=== PATIENT | male | born 1960 | race Caucasian/White ===

== ENCOUNTER 2017-08-22 06:27 | Inpatient (IN) | payer BC ==
[2017-08-18 08:19] LABS: BASOPHILS # (AUTO) 0.1 (0.0-0.1); BASOPHILS % 0.5 % (0.0-1.0); EOSINOPHILS # (AUTO) 0.1 (0.0-0.4); EOSINOPHILS % 0.7 % (0.0-6.0); HEMATOCRIT 42.8 % (38.2-49.6); HEMOGLOBIN 13.8 g/dL (14.0-18.0); LYMPHOCYTES # (AUTO) 1.1 (1.0-3.2); LYMPHOCYTES % 11.8 % (18.0-39.1); MEAN CORPUSCULAR HEMOGLOBIN 28.1 pg (28-32); MEAN CORPUSCULAR HGB CONC 32.2 g/dL (31-35); MEAN CORPUSCULAR VOLUME 87.2 fL (81-99); MONOCYTES % 10.3 % (4.4-11.3); NEUTROPHILS # (AUTO) 7.3 (2.1-6.9); NEUTROPHILS % 76.2 % (38.7-80.0); PLATELET COUNT 261 x10e3/uL (140-360); RED BLOOD COUNT 4.91 x10e6/uL (4.3-5.7); RED CELL DISTRIBUTION WIDTH 13.8 % (11.7-14.4)
[2017-08-18 08:42] LABS: ANION GAP 14.4 mmol/L (8-16); BLOOD UREA NITROGEN 11 mg/dL (7-26); BUN/CREATININE RATIO 12 (6-25); CALCIUM 9.9 mg/dL (8.4-10.2); CARBON DIOXIDE 24 mmol/L (22-29); CHLORIDE 104 mmol/L (98-107); EST GLOMERULAR FILTRATION RATE > 60 ML/MIN (60-); GLUCOSE 108 mg/dL (74-118); POTASSIUM 4.4 mmol/L (3.5-5.1); SODIUM 138 mmol/L (136-145)
[~2017-08-22] VITALS: Ht 193 cm; Wt 161.5 kg
[~2017-08-22 06:27] MED LIST: AUGMENTIN 875-1 EACH PO; BACTRIM DS TAB1 EACH PO; FLOMAX0.4 MG PO; LORAZEPAM1 MG PO; LOSARTAN POTAS100 MG PO; LOSARTAN-HCTZ1 EAC2 PO; NORCO 10-325 T1 EACH PO; PROZAC40 MG PO
[2017-08-22] MEDS ORDERED: CEFOXITIN 1GM/ DEXTROSE 50ML 100 ML IV ONE (06:50)
[2017-08-22] MEDS ORDERED: DIPHENHYDRAMINE HCL INJ 50 MG/ML VIAL IM PRN (13:15)
[2017-08-22] MEDS ORDERED: ACETAMINOPHEN 1000 MG/100 ML IV PRN (13:15)
[2017-08-22] MEDS ORDERED: HYDROMORPHONE 0.2MG/ML-SOD CHL 30ML PCA SYRINGE IV PRN (13:15)
[2017-08-22] MEDS ORDERED: NALOXONE HCL INJ 0.4 MG/ML AMP IV PRN (13:15)
[2017-08-22] MEDS ORDERED: ALBUTEROL SULF 0.083% NEB SOLN 3 ML NEB ONE (13:26)
[2017-08-22] MEDS ORDERED: ONDANSETRON HCL INJ 2 MG/ML VIAL ONE ×2 (13:49→18:10)
[2017-08-22] MEDS ORDERED: HYDROMORPHONE 2MG/ML INJ ONE (13:50)
[2017-08-22] MEDS: LACTATED RINGER'S 1,000 ML IV SCH (14:15)
[2017-08-22] MEDS ORDERED: HYDROMORPHONE 0.2MG/ML-SOD CHL 30ML PCA SYRINGE IV ONE (14:24)
[2017-08-22 15:15] VITALS: BP 161/92
--- NOTE | 2017-08-22 16:11 | Operative Report ---
DATE OF PROCEDURE: August 22, 2017 PREOPERATIVE DIAGNOSIS: Carcinoma of the rectum, status post low anterior resection with end colostomy. POSTOPERATIVE DIAGNOSIS: Carcinoma of the rectum, status post low anterior resection with end colostomy. PROCEDURE PERFORMED 1. Exploratory laparotomy. 2. Closure of colostomy with partial colon resection and coloproctostomy. 3. Creation of transverse end colostomy with mobilization of splenic flexure to colon. 4. Lysis of adhesions. 5. Rigid Proctoscopy ICE PULLER: None. ANESTHESIA: General. INDICATIONS AND FINDINGS: The patient is a 57-year-old male with a history of carcinoma of the rectum, who during his first procedure had difficulties with ventilation during the procedure so that the procedure had to be cut short, requiring an end colostomy. He has subsequently developed abscess in the pelvis and breakdown of the colon suture line. At surgery today, there was still some inflammation involving the colon, making it thickened with no abscess but a small pocket posterior to the rectum containing serosanguineous and mucoid fluid. There was no evidence of recurrent cancer. After the coloproctostomy was done, there was some leakage of air from the anastomosis, requiring a proximal transverse functionally end colostomy for protection of the anastomosis. TECHNIQUE: After adequate general endotracheal anesthesia, with the patient in the supine position with the legs in low stirrups, the abdomen and perineum were prepped and draped in sterile fashion with Betadine solution. Prior to doing the prep, rigid proctoscopy was done, which revealed that there was approximately 7 cm of rectum remaining and there was an area posteriorly where there was a small opening with a small amount of mucoid and serosanguineous drainage noted from this area. After the endoscopy was done, the abdomen and perineum were prepped and draped in sterile fashion with Betadine solution. With a midline incision, the peritoneal cavity was entered. There were some adhesions involving omentum and small bowel. These were lysed. The small bowel was freed from the pelvis, and there was some considerable fibrosis and some edema within the pelvis. Also, the bladder posteriorly was also somewhat edematous. The bladder was retracted anteriorly to enter the pelvis, and the area of the rectum was identified. There was an opening in the rectum posteriorly, which was about 1 cm. The rectum itself could not be visualized, but it was thought that the best thing would be just leave the rectum in place and pass the EEA stapler through the open area to close the colostomy. The colostomy was freed from the skin by incising around the stoma from the skin, freeing up subcutaneous tissue all the way down to the fascia. It was then freed from the fascia, circumference of the fascial defect, and the colon was delivered into the wound. Distal portion of the colon was resected. The colon about 4 cm proximal to the stoma was divided with a NUVIA stapler, the mesentery divided between clamps, ligated with 2-0 silk, and this portion of the colon was removed. The end of the colon was opened, and a pursestring suture of 2-0 silk was placed; and initially using the 29 mm EEA stapler, the anvil was placed through there and the pursestring suture tied around the anvil. The EEA stapler was then passed transanally. It passed through the opening posteriorly. Care was taken not to enlarge this opening. However, the 29 mm EEA stapler could not be used. The anvil could not be placed onto the stapler. So, this was switched to a 25 mm EEA stapler. This was passed transanally, and the anvil in the proximal colon was changed to the smaller anvil; and using this, the anastomosis was made between the proximal colon and the rectum. Once it was completed, the pelvis was filled with saline. It was insufflated with air, and there was some leakage from the anastomosis. However, most of the anastomosis seemed to be intact. The staple line was easily palpated, and air passed through into the proximal colon. It was decided because of the leak and the area could not be easily accessed to perform any sort of repair, a proximal colostomy would be done. The transverse colon was mobilized by dissecting the omentum away from it, and the left colon, splenic flexure of the colon also were mobilized. So, the splenic flexure was completely mobilized and the colon easily reached the abdominal wall. Once this mobilization was complete, the peritoneal cavity was irrigated with saline. A 10 mm flat Baltazar-De L Arosa drain was placed into the pelvis posterior to the anastomosis through a separate stab wound incision. The old colostomy site fascia was closed with a running suture of number 1 PDS from inside the abdomen. The midline fascia was then closed with a running suture of number 1 PDS. Subcutaneous tissue was irrigated with saline. Skin was closed with ismael. A stoma had been created in the left upper quadrant and the colon passed through the stoma prior to closure, and this colon was open and the distal portion of the colon was closed with a running suture of 2-0 Vicryl in 2 layers, creating a functional end colostomy. The colostomy was then matured, tacking the skin to full thickness of the colon with interrupted sutures of 3-0 Vicryl. Colostomy appliance was then applied. Sterile dressing was applied to the abdominal wounds, which had been closed with ismael. Patient tolerated this procedure well. Estimated blood loss was 400 mL. There were no complications. All counts were correct. Patient was planned to have removal of the venous access port, but because of the need for another surgery and seen to be poor peripheral veins, I decided to leave the port for now as it may be necessary for venous access while the patient is in the hospital and for subsequent surgery. This was explained to the patient's prior to completing the case. The patient was taken to the recovery room in satisfactory condition. Job#: [id number] EV cc: FER SIDDIQUI MD MTDD
[2017-08-22 16:20] VITALS: BP 161/92
[2017-08-22] MEDS: TAMSULOSIN HCL 0.4 MG CAP PO SCH (17:36)
[2017-08-22] MEDS: CEFOXITIN 2GM/ D5W 50ML 50 ML IV SCH (17:44)
[2017-08-22] MEDS ORDERED: GLYCOPYRROLATE INJ 1MG/ 5 ML SYR ONE (18:10)
[2017-08-22] MEDS ORDERED: ROCURONIUM BROMIDE 10 MG/ML 5ML VIAL ONE (18:10)
[2017-08-22] MEDS ORDERED: LIDOCAINE HCL 2% LOCAL INJ 5 ML SDV VIAL INJ ONE (18:10)
[2017-08-22] MEDS ORDERED: VASOPRESSIN INJ 20 UNIT/ML VIAL ONE (18:10)
[2017-08-22] MEDS ORDERED: PROPOFOL IV EMULSION 10 MG/ML 20 ML VIAL ONE (18:10)
[2017-08-22] MEDS ORDERED: SEVOFLURANE INHAL SOLN 250 ML PEN BTL ONE (18:10)
[2017-08-22] MEDS ORDERED: DEXAMETHASONE SOD PHOS INJ 4 MG/ML VIAL ONE (18:10)
[2017-08-22] MEDS ORDERED: NEOSTIGMINE 5 MG/5ML SYR ONE (18:10)
[2017-08-22] MEDS ORDERED: MIDAZOLAM HCL 2 MG/2 ML VIAL ONE (19:13)
[2017-08-22] MEDS ORDERED: MORPHINE SULFATE INJ 10 MG/ML ONE (19:13)
[2017-08-22] MEDS ORDERED: FENTANYL CITRATE/PF 100MCG/2 ML INJ ONE (19:13)
[2017-08-22 20:30] VITALS: BP 126/70
[2017-08-22] MEDS ORDERED: KETOROLAC TROMETHAMINE 30 MG/ML VIAL IV STA (20:44)
[2017-08-23 00:29] VITALS: BP 106/60
--- NOTE | 2017-08-23 00:57 | Consultation ---
DATE OF CONSULTATION: August 22, 2017 PULMONARY/CRITICAL CARE MEDICINE CONSULT REFERRING PHYSICIAN: Dr. Lindo REASON FOR REFERRAL: Postoperative state. HISTORY: Mr. Mathur is a pleasant 57-year-old gentleman with postoperative state. Patient well known to me on previous encounter. Patient with history of rectal mass. In April 2017, patient had a lower anterior resection of the rectal mass, which was found at midrectum and a colostomy was placed due to desaturations and need to expeditiously end the surgery. Patient was extubated later the same night after CAT scan was found with no PE at that time and only had a . Patient, thereafter, progressed and was, subsequently, discharged. Patient, at that time, had a diagnosis of rectal cancer and he already had the x-ray therapy and chemotherapy. Patient, however, he developed abscess in the pelvis and breakdown of the colon suture line. Patient had drain placement. Decision was made to explore and try to revise findings. Today, exploratory laparotomy was performed with closure of colostomy with partial colon resection and coloproctostomy. There was creation of a transverse end colostomy with mobilization of the splenic flexure to the colon, and lysis of adhesions were done. Of note, 1-cm area in the rectum was noted, which was associated to be breakdown and probable source of any fistula and there was no easy way to repair it at this time. Patient, subsequently, was extubated postoperatively. Patient now presents to the medical floor for further treatment. PAST MEDICAL HISTORY: Hypertension, rectal cancer, status post chemotherapy, radiation therapy, previous low anterior resection of the rectal mass. Port placement. MEDICATIONS: Medication list reviewed per the electronic record. ALLERGIES: PATIENT WITH NO KNOWN DRUG ALLERGIES. SOCIAL HISTORY: No alcohol, no drugs. He previously smoked from age 13 to age 56, one pack per day. 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 FAMILY HISTORY: Noncontributory to this. REVIEW OF SYSTEMS GENERAL: There is some weight gain about 10 lbs. ENDOCRINE: No thyroid disease. PULMONARY: No asthma. CARDIAC: No heart attacks. GI: There is no diarrhea. : No blood in urine. MUSCULOSKELETAL: Very mild arthritis only. NEUROLOGIC: No seizures. DERMATOLOGIC: No rashes. PSYCHIATRIC: No depression. OBJECTIVE VITAL SIGNS: Noted per electronic record. Patient is on 2 L per minute nasal cannula with 92% oxygen saturation. GENERAL: In bed with PRIVATE DETECTIVE pump, good color, but mild pain. HEENT: Normocephalic, atraumatic. NECK: Supple. Throat midline. LUNGS: Bilateral air entry, just decreased breath sounds at the base, otherwise clear. CARDIOVASCULAR: S1/S2. No murmurs, rubs or gallops. ABDOMEN: Soft, nontender. EXTREMITIES: No clubbing, no cyanosis, there is no edema. INTEGUMENT: No rash, no purpura. LABS: White count 9, hematocrit 43, platelets 261,000. Potassium 4.4, creatinine 0.9. IMPRESSIONS AND PLAN 1. Postoperative state, status post exploratory laparotomy with closure of colostomy and partial colon resection, and creation of transverse end colostomy with mobilization of splenic flexion to colon. 2. History of rectal carcinoma, status post surgical, radiation, chemotherapy treatment. 3. Previous low anterior resection with end colostomy with additional breakdown of colonic suture line and presacral abscess. 4. Obesity. 5. History of hypertension. 6. Suspected obstructive sleep apnea. 7. History of long-time smoking. Patient will have repeat blood counts done in the morning. He is on PRIVATE DETECTIVE. If his pain continues, will increase the lockout to allow him to get more medicine and will decrease it from 10 minutes to 8 minutes. Continue to follow up his vitals carefully. Oxygen as needed for supplement. Patient will have DVT prophylaxis as appropriate and for now, will be mechanical. Specialty bed was ordered. We hope to acquire it soon. Early mobilization when okay with surgeon. Thank you very much, Dr. Lindo, for this consult. I will follow along with you. Job#: [id number]
[2017-08-23 05:13] VITALS: BP 129/81
[2017-08-23] MEDS: CEFOXITIN 2GM/ D5W 50ML 50 ML IV SCH ×4 (05:19→18:00)
[2017-08-23 07:20] LABS: BASOPHILS % 0.2 % (0.0-1.0); EOSINOPHILS % 0.2 % (0.0-6.0); HEMATOCRIT 37.8 % (38.2-49.6); HEMOGLOBIN 11.9 g/dL (14.0-18.0); LYMPHOCYTES # (AUTO) 0.7 (1.0-3.2); LYMPHOCYTES % 7.3 % (18.0-39.1); MEAN CORPUSCULAR HEMOGLOBIN 27.4 pg (28-32); MEAN CORPUSCULAR HGB CONC 31.5 g/dL (31-35); MEAN CORPUSCULAR VOLUME 87.1 fL (81-99); MONOCYTES # (AUTO) 0.9 (0.2-0.8); MONOCYTES % 9.9 % (4.4-11.3); NEUTROPHILS # (AUTO) 7.6 (2.1-6.9); PLATELET COUNT 267 x10e3/uL (140-360); RED BLOOD COUNT 4.34 x10e6/uL (4.3-5.7)
[2017-08-23 07:48] LABS: ANION GAP 11.1 mmol/L (8-16); BLOOD UREA NITROGEN 12 mg/dL (7-26); BUN/CREATININE RATIO 13 (6-25); CALCIUM 8.9 mg/dL (8.4-10.2); CARBON DIOXIDE 25 mmol/L (22-29); CHLORIDE 104 mmol/L (98-107); CREATININE, SERUM 0.93 mg/dL (0.72-1.25); EST GLOMERULAR FILTRATION RATE > 60 ML/MIN (60-); GLUCOSE 115 mg/dL (74-118); POTASSIUM 4.1 mmol/L (3.5-5.1); SODIUM 136 mmol/L (136-145)
[2017-08-23 07:52] VITALS: BP 130/71
[2017-08-23] MEDS ORDERED: FLUOXETINE HCL 60 MG PO SCH (09:00)
[2017-08-23] MEDS: TAMSULOSIN HCL 0.4 MG CAP PO SCH ×2 (09:15→17:45)
[2017-08-23] MEDS: FLUOXETINE HCL 20 MG CAP PO SCH (09:15)
[2017-08-23] MEDS: LOSARTAN POTASSIUM 100 MG TAB PO SCH (09:15)
[2017-08-23] MEDS: LACTATED RINGER'S 1,000 ML IV SCH ×3 (09:20→18:00)
[2017-08-23 11:35] VITALS: BP 121/71
[2017-08-23] MEDS ORDERED: KETOROLAC TROMETHAMINE 30 MG/ML VIAL IV PRN (12:30)
[2017-08-23] MEDS: ONDANSETRON HCL INJ 2 MG/ML VIAL IV PRN (14:32)
[2017-08-23 16:27] VITALS: BP 140/75
[2017-08-23 20:00] VITALS: BP 129/83
[2017-08-23] MEDS: HYDROMORPHONE 0.2MG/ML-SOD CHL 30ML PCA SYRINGE IV PRN (22:37)
[2017-08-24] VITALS: BP 123/75
--- NOTE | 2017-08-24 01:29 | Progress Note ---
DATE: August 23, 2017 PULMONARY MEDICINE PROGRESS NOTE SUBJECTIVE: Mr. Mathur was seen and examined at bedside. A 94% oxygen saturation on 3 L per minute via nasal cannula. Polanco is in with reasonable urine output so far. TARIFF INSPECTOR is ongoing, although he did have a lot of pain, so the lockout had to be reduced to 8 minutes. Lactated Ringer is on at 150 mL per hour. Patient is spontaneously breathing with no distress. REVIEW OF SYSTEMS: No chest pain, no headaches. OBJECTIVE VITALS: Afebrile. Vital signs noted per electronic record. GENERAL: No acute distress. Mild pale, but better color than yesterday. HEENT: Normocephalic, atraumatic. NECK: Supple. Throat midline. LUNGS: Bilateral air entry. Few rare rhonchi, decreased breath sounds at base. CARDIOVASCULAR: S1/S2. No murmurs, rubs or gallops. ABDOMEN: Soft, nontender. EXTREMITIES: No clubbing, no cyanosis, no edema. INTEGUMENT: No rash or purpura. LABS: Potassium 4.1, BUN 12, creatinine 0.9. White count 9, hematocrit 38, platelets 267,000. IMPRESSIONS AND PLAN 1. Postoperative stay, status post colostomy creation. 2. Postoperative stay, status post exploratory laparotomy with attempted closure of rectal fistula. not successful at this time. 3. History of rectal cancer, status post lower anterior resection. 4. Obesity. 5. Pain. Pain medicines will be adjusted again as needed. For now, TARIFF INSPECTOR will be continued. As he continues to improve, we hope to get him down tomorrow. Continue IV fluid. Await bowel movements and bowel motility. Will follow along closely. Continue oxygen supplement and other monitoring while he is on the TARIFF INSPECTOR. Job#: [id number]
[2017-08-24 04:00] VITALS: BP 119/70
[2017-08-24] MEDS: CEFOXITIN 2GM/ D5W 50ML 50 ML IV SCH ×3 (06:00→11:42)
[2017-08-24 07:36] LABS: HEMATOCRIT 34.7 % (38.2-49.6); HEMOGLOBIN 11.1 g/dL (14.0-18.0); MEAN CORPUSCULAR HEMOGLOBIN 28.2 pg (28-32); MEAN CORPUSCULAR VOLUME 88.1 fL (81-99); PLATELET COUNT 232 x10e3/uL (140-360); RED BLOOD COUNT 3.94 x10e6/uL (4.3-5.7); RED CELL DISTRIBUTION WIDTH 13.8 % (11.7-14.4)
[2017-08-24] MEDS: LACTATED RINGER'S 1,000 ML IV SCH ×2 (07:42→11:40)
[2017-08-24 07:56] LABS: BLOOD UREA NITROGEN 8 mg/dL (7-26); BUN/CREATININE RATIO 10 (6-25); CARBON DIOXIDE 27 mmol/L (22-29); CHLORIDE 101 mmol/L (98-107); CREATININE, SERUM 0.79 mg/dL (0.72-1.25); EST GLOMERULAR FILTRATION RATE > 60 ML/MIN (60-); GLUCOSE 97 mg/dL (74-118); SODIUM 135 mmol/L (136-145)
[2017-08-24 08:24] VITALS: BP 124/86
[2017-08-24] MEDS: TAMSULOSIN HCL 0.4 MG CAP PO SCH ×2 (09:30→17:15)
[2017-08-24] MEDS: LOSARTAN POTASSIUM 100 MG TAB PO SCH (09:30)
[2017-08-24] MEDS: FLUOXETINE HCL 20 MG CAP PO SCH (09:30)
[2017-08-24 10:05] LABS: EOSINOPHILS % (MANUAL) 1 % (0-7); LYMPHOCYTES % (MANUAL) 5 % (19-48); METAMYELOCYTES % (MANUAL) 1 % (0-0); MONOCYTES % (MANUAL) 5 % (3.4-9.0); MYELOCYTES % (MANUAL) 1 % (0-0); NEUTROPHILS % (MANUAL) 87 % (40-74)
[2017-08-24 10:06] LABS: ANISOCYTOSIS SLIGHT; PLATELET ESTIMATE ADEQUATE; PLATELET MORPHOLOGY COMMENT NORMAL; RBC MORPHOLOGY COMMENT NORMAL
--- NOTE | 2017-08-24 15:39 | Progress Note ---
DATE: August 24, 2017 PULMONARY MEDICINE PROGRESS NOTE SUBJECTIVE: Mr. Mathur was seen and examined at bedside. He was started on a clear liquid diet, which he is tolerating well so far. No nausea and no emesis. He is passing some gas through his ostomy bag. Polanco is in place. Lactated Ringer's at 100 mL per hour. On 4 L per minute oxygen with good saturations. He is wearing his SCDs. REVIEW OF SYSTEMS: No headaches. No nosebleeds. OBJECTIVE VITALS: Afebrile. Vital signs noted per electronic record. GENERAL: No acute distress. Alert and calm in bed. Better color today. HEENT: Normocephalic, atraumatic. NECK: Supple. Throat midline. LUNGS: Bilateral air entry. A few rhonchi. CARDIOVASCULAR: S1, S2. No murmurs, rubs or gallops. ABDOMEN: Soft, nontender. EXTREMITIES: No clubbing. No cyanosis. There is no edema. INTEGUMENT: No rash. No purpura. LABS: 8 creatinine, 0.8 creatinine, 4.0 potassium, 11 white count, 35 hematocrit, platelets 232. IMPRESSION AND PLAN 1. Postoperative state, status post colostomy creation. 2. Postoperative state, status post exploratory laparotomy with closure of previous site to divert retropelvic abscess. 3. Obesity. 4. Pain, improving. We will follow along closely. If the surgeon is agreeing, we can start mobilizing him better. We will have to ask if he wants a binder, although his ostomy is just under his diaphragm and may be difficult to wear with a binder, so he probably needs to go with just abdominal cautions. Consider removing Polanco soon if he is able to move. 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 We will follow along closely. Job#: [id number]
[2017-08-24 20:00] VITALS: BP 121/72
[2017-08-24] MEDS: HYDROMORPHONE 0.2MG/ML-SOD CHL 30ML PCA SYRINGE IV PRN (21:04)
[2017-08-25] VITALS: BP 109/73
[2017-08-25 04:00] VITALS: BP 132/75
[2017-08-25] MEDS: HYDROMORPHONE 0.2MG/ML-SOD CHL 30ML PCA SYRINGE IV PRN (06:44)
[2017-08-25 07:59] VITALS: BP 121/85
[2017-08-25] MEDS: LOSARTAN POTASSIUM 100 MG TAB PO SCH (09:25)
[2017-08-25] MEDS: TAMSULOSIN HCL 0.4 MG CAP PO SCH ×2 (09:25→17:50)
[2017-08-25] MEDS: FLUOXETINE HCL 20 MG CAP PO SCH (09:25)
[2017-08-25 11:47] VITALS: BP 119/87
[2017-08-25 16:15] VITALS: BP 120/89
[2017-08-25] MEDS: LACTATED RINGER'S 1,000 ML IV SCH (17:50)
[2017-08-25 21:48] VITALS: BP 111/83
[2017-08-25] MEDS: AMOXICILLIN/CLAVULANATE K 500 MG TAB PO SCH (22:01)
[2017-08-25] MEDS: HYDROCODONE/APAP 10MG-325MG TAB PO PRN (23:11)
[2017-08-26] VITALS (7 sets, daily range): BP systolic 116–144; BP diastolic 68–88
[2017-08-26] MEDS: HYDROCODONE/APAP 10MG-325MG TAB PO PRN ×5 (03:26→21:16)
--- NOTE | 2017-08-26 04:25 | Progress Note ---
DATE: August 25, 2017 PULMONARY MEDICINE PROGRESS NOTE SUBJECTIVE: Mr. Mathur was seen and examined at the bedside. He continues to have steady progress. He is tolerating a full liquid diet. Patient having more gas being passed into the stoma. No large bowel output yet. Four liters per minute by nasal cannula. Lactated Ringer's at 50 mL per hour. He still has a CHANNEL LIP STIFFENER INSOLES pump in place. REVIEW OF SYSTEMS: No headaches. No rash. OBJECTIVE VITALS: Afebrile. Vital signs noted per electronic record. GENERAL: No acute distress. Alert and calm. HEENT: Normocephalic and atraumatic. NECK: Supple. Throat midline. LUNGS: Bilateral air entry. Decreased breath sounds at the base, but clear. CARDIOVASCULAR: S1 and S2. No murmurs, rubs or gallops. ABDOMEN: Soft and nontender. EXTREMITIES: No clubbing. No cyanosis. There is no edema. INTEGUMENT: No rash. No purpura. LABS: Include no new findings today. IMPRESSION AND PLAN 1. Postoperative state: Status post ostomy creation for diversion. 2. History of rectal carcinoma. 3. Presacral abscess. 4. History of obstructive sleep apnea suspected. Continue current treatment. Mobilize him steadily. He is on CHANNEL LIP STIFFENER INSOLES pump, which will be changed over to other pain medicines soon tonight. Continue current treatment. Escalate diet as tolerated. Patient will have followup of his bowel function. Upgrade diet to regular diet today. Job#: [id number] WIL
[2017-08-26] MEDS: AMOXICILLIN/CLAVULANATE K 500 MG TAB PO SCH ×3 (05:20→21:19)
[2017-08-26] MEDS: TAMSULOSIN HCL 0.4 MG CAP PO SCH ×2 (09:26→17:00)
[2017-08-26] MEDS: FLUOXETINE HCL 20 MG CAP PO SCH (09:26)
[2017-08-26] MEDS: LOSARTAN POTASSIUM 100 MG TAB PO SCH (09:26)
[2017-08-26] MEDS: ONDANSETRON HCL INJ 2 MG/ML VIAL IV PRN (12:20)
[2017-08-26] MEDS: LACTATED RINGER'S 1,000 ML IV SCH (15:00)
[2017-08-27 00:41] VITALS: BP 133/84
--- NOTE | 2017-08-27 02:41 | Progress Note ---
DATE: August 26, 2017 PULMONARY MEDICINE PROGRESS NOTE SUBJECTIVE: Mr. Mathur was seen and examined at the bedside. He is tolerating his first diet of solid food. No nausea, no emesis. Lactated Ringer's at 50 mL per hour. Wound was evaluated by surgeon and it is felt to be doing well. REVIEW OF SYSTEMS: No nosebleeds, no GI bleed. OBJECTIVE VITALS: Afebrile. Vital signs noted per the chart record. GENERAL: No distress, calm in bed. He is in pain if he moves. HEENT: Normocephalic and atraumatic. NECK: Supple. Throat midline. LUNGS: Bilateral air entry. Few rare rhonchi at the base. CARDIOVASCULAR: S1 and S2. No murmurs, rubs, or gallops. ABDOMEN: Soft and nontender. EXTREMITIES: No clubbing. No cyanosis. There is no edema. INTEGUMENT: No rash. No purpura. IMPRESSIONS 1. Postoperative pain: 2. Postoperative . 3. Postoperative state, status post diverting colostomy placement. 4. Presacral abscess through the rectofistula. 5. Obesity, likely sleep apnea. PLAN 1. Continue current treatment at this time. 2. We will follow along closely. 3. We will increase [place] for pain. 4. Mobilize him as tolerated. 5. Continue mechanical DVT prophylaxis. 6. wound care per surgeon. Job#: [id number]
[2017-08-27] MEDS: HYDROCODONE/APAP 10MG-325MG TAB PO PRN ×2 (04:35→09:00)
[2017-08-27 05:00] VITALS: BP 147/91
[2017-08-27] MEDS: AMOXICILLIN/CLAVULANATE K 500 MG TAB PO SCH (06:23)
[2017-08-27 08:15] VITALS: BP 143/90
[2017-08-27] MEDS: FLUOXETINE HCL 20 MG CAP PO SCH (08:53)
[2017-08-27] MEDS: TAMSULOSIN HCL 0.4 MG CAP PO SCH (08:53)
[2017-08-27] MEDS: LOSARTAN POTASSIUM 100 MG TAB PO SCH (08:53)
--- NOTE | 2017-08-27 11:17 | Discharge Summary ---
ADMISSION DIAGNOSIS: Carcinoma of the rectum status post colostomy. DISCHARGE DIAGNOSIS: Carcinoma of the rectum status post colostomy. PRINCIPAL PROCEDURE 1. Exploratory laparotomy. 2. Closure of colostomy. 3. Partial colon resection with coloproctostomy. 4. Creation of transverse end colostomy with mobilization of splenic flexure of colon. 5. Lysis of adhesions. HISTORY OF PRESENT ILLNESS: The patient is a 57-year-old male who previously underwent surgery for carcinoma of the rectum where he had end colostomy done at that time. He is now admitted for closure of the colostomy. HOSPITAL COURSE: The patient was admitted to the hospital and underwent surgery the same day as admission. Postoperatively the patient was stable. He was seen in consultation by Dr. Moss for medical management. He was started on a liquid diet, which he tolerated without problem. The newly created transverse colostomy was functioning well. Wound remained clean. He was out of bed, ambulating. He was changed from PROCESS MECHANIC pump to pain medication on the 2nd postop day, and he was discharged home on the 5th postop day. At time of discharge, he was afebrile, wound was clean, tolerating diet. Colostomy was functioning. Discharge medications were [place] and he will continue with the same home meds as he took prior to admission. He was sent home with a Baltazar-De La Rosa drain left in place. He will follow up with Dr. Lindo approximately 1 week after discharge. He was sent home in satisfactory condition on a regular diet. ASHKAN LINDO MD Job#: [id number] EV
== END 2017-08-27 11:06 | disposition home or self-care (01) | DRG 330 ==
LOC: OR 06:27 → MED/SURG3 14:09
PROVIDERS: ADMIT Surgery; ATTEND Surgery
PROC: 0D1L0Z4 Bypass Transverse Colon to Cutaneous, Open Approach (ICD-10-PCS; 2017-08-22)
PROC: 0DBE0ZZ Excision of Large Intestine, Open Approach (ICD-10-PCS; principal; 2017-08-22 09:00)
DX: Z43.3 Encounter for attention to colostomy (principal); C20 Malignant neoplasm of rectum; Z68.41 Body mass index [BMI] 40.0-44.9, adult; I10 Essential (primary) hypertension; G47.33 Obstructive sleep apnea (adult) (pediatric); K60.3 Anal fistula; E66.9 Obesity, unspecified; Z87.891 Personal history of nicotine dependence
CPT/HCPCS: 36415; 80048; 85007; 85025; 85027; 88305; 94667; J0694; J1100; J1885; J2001; J2250; J2270; J2405; J7120

== ENCOUNTER → 2017-11-03 | Outpatient (CLI) | payer BC ==
[~2017-11-03] MED LIST changes: +GADOBENATE DIMEGLUMINE 1 ML IV ONE
--- NOTE | 2017-11-03 14:55 | Diagnostic Imaging Report ---
History: Low back pain Comparison studies: None Technique: Sagittal, coronal and axial T2 , sagittal T1 and IR, axial spin density oblique. Intravenous contrast: 20 cc of MultiHance Findings: Number of lumbar vertebral bodies:5 Alignment: Normal lordosis.No scoliosis. Soft tissues: No T2 hyperintense inflammatory changes. Paraspinal muscles: No signal abnormalities. No atrophy. Lower thoracic cord:Normal in signal and morphology. The tip of the conus is at L1. Cauda equina: No masses. No arachnoiditis. Vertebrae: Normal in height and signal intensity. No compression fractures, infection or neoplasm. Degenerative changes: L1-L2: Disc degeneration with loss of T2 signal. Mild diffuse disc bulge with patent canal and foramina. L2-L3: Disc degeneration with loss of T2 signal. Mild diffuse disc bulge with patent canal and foramina. L3-L4: Disc degeneration with loss of T2 signal. Mild diffuse disc bulge and mild facet hypertrophy with patent canal and mild bilateral foraminal narrowing.. L4-L5: Disc degeneration with loss of T2 signal. Diffuse disc bulge moderate facet hypertrophy ligamentum flavum thickening results in mild canal stenosis, narrowing of the bilateral subarticular recesses, mild right and moderate left foraminal narrowing. L5-S1: Mild diffuse disc bulge and mild left facet hypertrophy without significant canal stenosis and mild left foraminal narrowing. Additional findings: Mild degenerative changes of the bilateral SI joints. No abnormal enhancement. IMPRESSION: Mild canal stenosis, mild right and moderate left foraminal narrowing at L4-L5 secondary to degenerative changes. Other mild degenerative changes without significant canal stenosis and mild multilevel foraminal narrowing as described above. Signed by: DR Abel Lee M.D. on 11/03/2017 2:52 PM
--- NOTE | 2017-11-03 18:43 | Diagnostic Imaging Report ---
TECHNIQUE: Magnetic resonance imaging of the PELVIS was performed WITHOUT injected contrast using standard departmental protocols. HISTORY: History of malignant neoplasm, rectal cancer, pain, post radiation COMPARISON: None. FINDINGS: Bone and bone marrow: No focal or infiltrative bone marrow replacing abnormality. No fracture or osteonecrosis. Band like bone marrow signal changes between L4 and L5, likely the sequela of the reported radiation treatment. Joints: Mild scattered degenerative changes. Soft tissues: Prominent nonspecific soft tissue edema centered in the presacral soft tissues, abutting the anterior margin of the sacrum. Enhancement characteristics cannot be assessed. IMPRESSION: 1. No acute fracture or evidence of osseous metastatic disease. 2. Prominent soft tissue edema centered anterior to the sacrum and about the bilateral sacral plexi. Signed by: Rianna Cervantes.O., M.M.M. on 11/03/2017 6:39 PM
--- NOTE | 2017-11-06 18:41 | Diagnostic Imaging Report ---
PROCEDURE:MRI PELVIS WITHOUT AND WITH CONTRAST COMPARISON:MRI lumbar spine and MRI pelvis without contrast 11/03/17; fistulogram 07/14/17 INDICATIONS:Rectal carcinoma status post radiotherapy, pelvic pain. TECHNIQUE:Multiplanar, multi-sequential MRI of the pelvis was performed before and after the intravenous administration of 20 cc of Multihance.. The protocol utilized appears to be a musculoskeletal protocol and not directed to the rectum or large bowel. FINDINGS: As seen on the unenhanced examination, there is diffuse presacral soft tissue thickening and edema consistent with history of radiotherapy. This soft tissue thickening is intimately associated with the sigmoid anastomosis which can be identified by the presence of bony artifact. There is a fluid collection posterior to the anastomosis and anterior to the presacral edema measuring 1.5 x 1.8 cm in the axial plane. Post gadolinium sequences were not fat-suppressed so enhancement cannot be identified. There is a track extending from the lumen of the rectum to the 5:00 position of the wall (series 8, image 26). Communication with the presacral soft tissue edema is suspected but cannot be defined. No sinus tract can be identified through the pelvic sharpe towards the skin surface. The distal colon is collapsed. No defined soft tissue mass. Visualized small bowel is unremarkable. Lymph nodes: No evidence of lymphadenopathy. Bladder: Normal. Prostate gland: Normal morphology. CONCLUSION: 1. Fistulous tract extending from the lumen of the rectum towards the presacral tissues likely extends to a small presacral fluid collection. A loculated abscess cannot be excluded. Recommend re-evaluation with MRI dedicated to the rectum. 2. Presacral soft tissue thickening consistent with history of radiotherapy. 3. No lymphadenopathy or discrete mass to suggest tumor recurrence. Dictated by: Devora Jang M.D. on 11/06/2017 at 18:41 Electronically approved by: Devora Jang M.D. on 11/06/2017 at 18:41
== END ==
LOC: MRI 09:13
PROVIDERS: ATTEND Radiology Radiation Oncology
DX: C20 Malignant neoplasm of rectum (principal)
CPT/HCPCS: 72158; 72195; 72197

== ENCOUNTER → 2017-11-10 | Outpatient (CLI) | payer BC ==
[~2017-11-10] MED LIST changes: +DIATRIZOATE MEGL/DIATRIZOA SOD 120 ML BTL PO ONE; +DIATRIZOATE MEGL/DIATRIZOA SOD 30 ML BTL PO ONE; -GADOBENATE DIMEGLUMINE 1 ML IV ONE
--- NOTE | 2017-11-10 09:40 | Diagnostic Imaging Report ---
PROCEDURE: X-RAY WATER SOLUBLE ENEMA COMPARISON: None. INDICATIONS: COLON RESECTION TECHNIQUE: Grocery Supervisor film was obtained. Gastrografin was introduced via a rectal tube in a retrograde fashion until contrast was noted to reaches the left mid abdomen ostomy. Multiple spot images as well as overhead and bilateral decubitus images were obtained. FINDINGS: The mail courier film demonstrates no acute abnormalities. There is no evidence of obstruction, mass or intraluminal filling defects. At the area of anastomosis in the rectum there is a small saccular outpouching of contrast material. This likely represents a confined extravasation or postsurgical change. No opacification of structures in the pelvis or the bladder is identified. There are scattered diverticula in the left colon. Contrast extends to the ostomy and fills the ostomy bag. Fluoroscopy time: 1.6 minutes Total dose: 362.76 mGy CONCLUSION: 1. Small saccular outpouching of contrast material at the anastomosis may be related to postoperative changes or a confined extravasation. 2. No fistula noted to the bladder or pelvic structures. 3. Scattered diverticula. Hesham Sandoval D.O. Dictated by: Hesham Sandoval D.O. on 11/10/2017 at 9:39 Electronically approved by: Hesham Sandoval D.O. on 11/10/2017 at 9:39
== END ==
LOC: DX 07:22
PROVIDERS: ATTEND Surgery
DX: C20 Malignant neoplasm of rectum (principal)
CPT/HCPCS: 74280; Q9963

== ENCOUNTER 2017-11-20 08:15 | Inpatient (IN) | payer BC ==
[2017-11-17 09:01] LABS: BASOPHILS % 0.5 % (0.0-1.0); EOSINOPHILS # (AUTO) 0.2 (0.0-0.4); EOSINOPHILS % 3.1 % (0.0-6.0); HEMATOCRIT 40.6 % (38.2-49.6); HEMOGLOBIN 12.8 g/dL (14.0-18.0); LYMPHOCYTES # (AUTO) 1.5 (1.0-3.2); MEAN CORPUSCULAR HEMOGLOBIN 27.6 pg (28-32); MEAN CORPUSCULAR HGB CONC 31.5 g/dL (31-35); MEAN CORPUSCULAR VOLUME 87.5 fL (81-99); MONOCYTES # (AUTO) 0.7 (0.2-0.8); MONOCYTES % 9.3 % (4.4-11.3); NEUTROPHILS # (AUTO) 4.8 (2.1-6.9); NEUTROPHILS % 65.6 % (38.7-80.0); PLATELET COUNT 194 x10e3/uL (140-360); RED BLOOD COUNT 4.64 x10e6/uL (4.3-5.7); RED CELL DISTRIBUTION WIDTH 15.4 % (11.7-14.4)
[2017-11-17 09:22] LABS: ANION GAP 13.3 mmol/L (8-16); BLOOD UREA NITROGEN 15 mg/dL (7-26); BUN/CREATININE RATIO 19 (6-25); CALCIUM 9.3 mg/dL (8.4-10.2); CARBON DIOXIDE 25 mmol/L (22-29); CHLORIDE 106 mmol/L (98-107); CREATININE, SERUM 0.81 mg/dL (0.72-1.25); EST GLOMERULAR FILTRATION RATE > 60 ML/MIN (60-); GLUCOSE 113 mg/dL (74-118); POTASSIUM 4.3 mmol/L (3.5-5.1); SODIUM 140 mmol/L (136-145)
[~2017-11-20] VITALS: Ht 193 cm; Wt 161.5 kg
[~2017-11-20 08:15] MED LIST changes: +CEFOXITIN SOD 1 GM VIAL ONE; -DIATRIZOATE MEGL/DIATRIZOA SOD 120 ML BTL PO ONE; -DIATRIZOATE MEGL/DIATRIZOA SOD 30 ML BTL PO ONE; +ONDANSETRON HCL INJ 2 MG/ML VIAL IV PRN
--- OUTSIDE RECORDS SUMMARY | 2017-11-20 08:17 | XMS REPORT ---
Author Author [facility] Address Unknown Phone Unavailable Care Team Providers Care Admittance Attendant Name Role Phone ASHKAN LINDO Unavailable Unavailable MARLENE SAREGNT Unavailable Unavailable Problems This patient has no known problems. Allergies, Adverse Reactions, Alerts This patient has no known allergies or adverse reactions. Medications This patient has no known medications. Results Test Description Test Time Test Comments Text Results Atomic Results Result Comments BARIUM ENEMA W/AIR C [place] [address] Patient Name: MESSI WELLER MR #: [id number] : 1960 Age/Sex: 57/M Req #: [id number] [facility] Physician: Ordered by: ASHKAN LINDO MD Report #: [id number] Location: DX Room/Bed: Procedure: [id number] DX/BARIUM ENEMA W/AIR C Exam Date: 11/10/17 Exam Time: 0735 REPORT STATUS: Signed PROCEDURE: X-RAY WATER SOLUBLE ENEMA COMPARISON: None. INDICATIONS: COLON RESECTION TECHNIQUE: Revenue Integrity Analyst film was obtained. Gastrografin was introduced via a rectal tube in a retrograde fashion until contrast was noted to reaches the left mid abdomen ostomy. Multiple spot images as well as overhead and bilateral decubitus images were obtained. FINDINGS: The oil scout film demonstrates no acute abnormalities. There is no evidence of obstruction, mass or intraluminal filling defects. At the area of anastomosis in the rectum there is a small saccular outpouching of contrast material. This likely represents a confined extravasation or postsurgical change. No opacification of structures in the pelvis or the bladder is identified. There are scattered diverticula in the left colon. Contrast extends to the ostomy and fills the ostomy bag. Fluoroscopy time: 1.6 minutes Total dose: 362.76 mGy CONCLUSION: 1. Small saccular outpouching of contrast material at the anastomosis may be related to postoperative changes or a confined extravasation. 2. No fistula noted to the bladder or pelvic structures. 3. Scattered diverticula. Hesham Henning D.O. Dictated by: Hesham Henning D.O. on 2017 at 9:39 Electronically approved by: Hesham Henning D.O. on 2017 at 9:39 Dictated By: HESHAM HENNING DO 8 Transcribed By: ROSE MARIE on 11/10/17938 COPY TO: ASHKAN LINDO MD MRI SPINE LUMBAR WOW [place] [address] Patient Name: MESSI WELLER MR #: [id number] : 1960 Age/Sex: 57/M Req #: [id number] Adm Physician: Ordered by: MARLENE SARGENT MD Report #: [id number] Location: MRI Room/Bed: Procedure: [id number] MRI/MRI SPINE LUMBAR WOW Exam Date: Exam Time : REPORT STATUS: Signed History: Low back pain Comparison studies: None Technique: Sagittal, coronal and axial T2 , sagittal T1 and IR, axial spin density oblique. Intravenous contrast: 20 cc of MultiHance Findings: Number of lumbar vertebral bodies:5 Alignment: Normal lordosis.No scoliosis. Soft tissues: No T2 hyperintense inflammatory changes. Paraspinal muscles: No signal abnormalities. No atrophy. Lower thoracic cord:Normal in signal and morphology. The tip of the conus is at L1. Cauda equina: No masses. No arachnoiditis. Vertebrae: Normal in height and signal intensity. No compression fractures, infection or neoplasm. Degenerative changes: L1-L2: Disc degeneration with loss of T2 signal. Mild diffuse disc bulge with patent canal and foramina. L2-L3: Disc degeneration with loss of T2 signal. Mild diffuse disc bulge with patent canal and foramina. L3-L4: Disc degeneration with loss of T2 signal. Mild diffuse disc bulge and mild facet hypertrophy with patent canal and mild bilateral foraminal narrowing.. L4-L5: Disc degeneration with loss of T2 signal. Diffuse disc bulge moderate facet hypertrophy ligamentum flavum thickening results in mild canal stenosis, narrowing of the bilateral subarticular recesses, mild right and moderate left foraminal narrowing. L5-S1: Mild diffuse disc bulge and mild left facet hypertrophy without significant canal stenosis and mild left foraminal narrowing. Additional findings: Mild degenerative changes of the bilateral SI joints. No abnormal enhancement. IMPRESSION: Mild canal stenosis, mild right and moderate left foraminal narrowing at L4-L5 secondary to degenerative changes. Other mild degenerative changes without significant canal stenosis and mild multilevel foraminal narrowing as described above. Signed by: DR Abel Lee M.D. on 11/03/2017 2:52 PM Dictated By: ABEL LEE MD 145 Transcribed By: DORIS on 11/03/17 145 COPY TO: MARLENE SARGENT MD MRI PELVIS [place] [address] Patient Name: MESSI WELLER MR #: [id number] : 1960 Age/Sex: 57/M Req #: [id number] Adm Physician: Ordered by: MARLENE SARGENT MD Report #: [id number] Location: MRI Room/Bed: Procedure: [id number] MRI/MRI PELVIS WOW Exam Date: Exam Time: REPORT STATUS: Signed PROCEDURE: MRI PELVIS WITHOUT AND WITH CONTRAST COMPARISON: MRI lumbar spine and MRI pelvis without contrast 11/03/17; fistulogram 07/14/17 INDICATIONS: Rectal carcinoma status post radiotherapy, pelvic pain. TECHNIQUE: Multiplanar, multi-sequential MRI of the pelvis was performed before and after the intravenous administration of 20 cc of Multihance.. The protocol utilized appears to be a musculoskeletal protocol and not directed to the rectum or large bowel. FINDINGS: As seen on the unenhanced examination, there is diffuse presacral soft tissue thickening and edema consistent with history of radiotherapy. This soft tissue thickening is intimately associated with the sigmoid anastomosis which can be identified by the presence of bony artifact. There is a fluid collection posterior to the anastomosis and anterior to the presacral edema measuring 1.5 x 1.8 cm in the axial plane. Post gadolinium sequences were not fat-suppressed so enhancement cannot be identified. There is a track extending from the lumen of the rectum to the 5:00 position of the wall (series 8, image 26). Communication with the presacral soft tissue edema is suspected but cannot be defined. No sinus tract can be identified through the pelvic sharpe towards the skin surface. The distal colon is collapsed. No defined soft tissue mass. Visualized small bowel is unremarkable. Lymph nodes: No evidence of lymphadenopathy. Bladder: Normal. Prostate gland: Normal morphology. CONCLUSION: 1. Fistulous tract extending from the lumen of the rectum towards the presacral tissues likely extends to a small presacral fluid collection. A loculated abscess cannot be excluded. Recommend re- evaluation with MRI dedicated to the rectum. 2. Presacral soft tissue thickening consistent with history of radiotherapy. 3. No lymphadenopathy or discrete mass to suggest tumor recurrence. Dictated by : Dee Jon M.D. on 11/06/2017 at 18:41 Electronically approved by : Dee Jon M.D. on 11/06/2017 at 18:41 Dictated By: DEE JON MD 40 COPY TO: MARLENE SARGENT MD MRI PELVIS WO [place] [address] Patient Name: MESSI WELLER MR #: [id number] : 1960 Age/Sex: 57/M Req #: [id number] Adm Physician: Ordered by: MARLENE SARGENT MD Report #: [id number] Location: MRI Room/Bed: Procedure: [id number] MRI/MRI PELVIS WO Exam Date: Exam Time: REPORT STATUS: Signed TECHNIQUE: Magnetic resonance imaging of the PELVIS was performed WITHOUT injected contrast using standard departmental protocols. HISTORY: History of malignant neoplasm, rectal cancer, pain, post radiation COMPARISON: None. FINDINGS: Bone and bone marrow: No focal or infiltrative bone marrow replacing abnormality. No fracture or osteonecrosis. Band like bone marrow signal changes between L4 and L5, likely the sequela of the reported radiation treatment. Joints: Mild scattered degenerative changes. Soft tissues: Prominent nonspecific soft tissue edema centered in the presacral soft tissues, abutting the anterior margin of the sacrum. Enhancement characteristics cannot be assessed. IMPRESSION: 1. No acute fracture or evidence of osseous metastatic disease. 2. Prominent soft tissue edema centered anterior to the sacrum and about the bilateral sacral plexi. Signed by: Dr. Coleman Doherty D.O., M.M.M. on 11/03/2017 6:39 PM Dictated By: COLEMAN DOHERTY DO 38 Transcribed By: DORIS on 11/03/171838 COPY TO: MARLENE SARGENT MD INJECTION FISTULAGRAM [place] [address] Patient Name: MESSI WELLER MR #: [id number] : 1960 Age/Sex: 57/M Req #: [id number] Adm Physician: Ordered by: ASHKAN LINDO MD Report #: [id number] Location: DX Room/Bed: Procedure: [id number] DX/INJECTION FISTULAGRAM Exam Date: 07/14/17 Exam Time: 0900 REPORT STATUS: Signed PROCEDURE: FISTULAGRAM COMPARISON: [facility], CT, FREDDY ABD FLUID/ABSC W/CATH-CT, 04/2017, 8:34. INDICATIONS: Pre-sacral abscess. FINDINGS: Contrast was injected into the indwelling buttocks catheter with the tip in the presacral space. Multiple spot images were obtained. Contrast first outlines a small pocket and then communicates with the rectum. The injected contrast subsequently drains out the anus. Findings discussed with Dr. Warren on 07/14/2017 at 12:40 PM. Fluoroscopy time: 0.8 minutes Total dose: 62.37 mGy CONCLUSION: Fistulogram through existing pelvic catheter shows communication with the rectum. Hesham Henning D.O. Dictated by: Hesham Henning D.O. on 07/14/2017 at 10:33 Electronically approved by: Hesham Henning D.O. on 07/14/2017 at 12:48 Dictated By: HESHAM HENNING DO 1248 Transcribed By: ROSE MARIE on 07/14/17 1248 COPY TO: ASHKAN LINDO MD FISTULAGRAM [place] [address] Patient Name: MESSI WELLER MR #: [id number] : 1960 Age/Sex: 57/M Req #: [id number] Adm Physician: Ordered by: ASHKAN LINDO MD Report #: [id number] Location: DX Room/Bed: Procedure: [id number] IR/FISTULAGRAM Exam Date: 07/14/17 Exam Time: 0900 REPORT STATUS: Signed PROCEDURE: FISTULAGRAM COMPARISON: [facility], CT, FREDDY LYLE FLUID/ABSC W/CATH-CT, 07/06/2017, 8:34. INDICATIONS: Pre-sacral abscess. FINDINGS: Contrast was injected into the indwelling buttocks catheter with the tip in the presacral space. Multiple spot images were obtained. Contrast first outlines a small pocket and then communicates with the rectum. The injected contrast subsequently drains out the anus. Findings discussed with Dr. Warren on 07/14 at 12:40 PM. Fluoroscopy time: 0.8 minutes Total dose: 62.37 mGy CONCLUSION: Fistulogram through existing pelvic catheter shows communication with the rectum. Hesham Henning D.O. Dictated by: Hesham Henning D.O. on 07/14/2017 at 10:33 Electronically approved by: Hesham Henning D.O. on 07/14/2017 at 12:48 Dictated By: HESHAM HENNING DO 47 Transcribed By: ROSE MARIE on 07/14/171247 COPY TO: ASHKAN LINDO MD, ABD FLUID/ABSC W CATH-CT [facility] [address] [place] [address] Patient Name: MESSI WELLER MR #: [id number] : 1960 Age/Sex: 57/M Req #: [id number] Adm Physician: Ordered by: ASHKAN LINDO MD Report #: [id number] Location: CT Room/Bed: Procedure: [id number] CT/FREDDY ABD FLUID/ABSC W CATH-CT Exam Date: Exam Time: REPORT STATUS: Signed preprocedure diagnosis: Presacral fluid collection Post procedure diagnosis: Presacral abscess Procedure: CT-guided percutaneous drainage of presacral abscess Smoke Jumper Supervisor: Ashkan Prince M.D. Contrast used: Zero DLP: 1757.88 mGy-cm Estimated blood loss: Minimal Blood products administered: None Specimens: 30 cc purulent aspirate Implants/grafts: 10 Tanzanian locking loop all-purpose drainage catheter Complications: No immediate Sedation/anesthesia: 150 mcg fentanyl, 2 mg Versed intravenous. The patient's heart rate and pulse oximetry were continuously monitored by the interventional radiology nurse. Blood pressure was monitored at 5 minute intervals. Additional medications : Lidocaine 1% for local anesthesia. The patient has been taking oral ciprofloxacin on outpatient basis, with the last dose the morning of the procedure. Condition at completion of procedure: Stable Disposition: Radiology holding area for recovery. COMPARISON: Outside CT images from 07/03/2017. INDICATIONS: ABSCESS DRAINAGE Procedure in detail: Informed consent for the procedure was obtained and documented in the medical record after discussion of risks and benefits. A time out was performed verifying patient name, date of , and medical record number. The patient was placed in the prone position on the CT couch. A marker grid was placed over the right gluteal region. Limited CT acquisition confirmed a suitable percutaneous transgluteal approach to the presacral fluid collection. The overlying skin was prepped and draped in the standard sterile fashion. 1% lidocaine was infiltrated into the skin and subcutaneous tissues for local anesthesia. Then under intermittent CT guidance, an 18 gauge needle was advanced into the presacral fluid collection with care taken to maintain a paramedian approach alongside the sacral ala. A 0.035 inch wire was then advanced through the needle and coiled in the presacral space. The needle was removed over the wire and the tract was dilated. Then, a 10 Tanzanian locking loop all-purpose drainage catheter was advanced over the wire, which was then removed. The locking loop of the catheter was formed in the presacral space with appropriate positioning confirmed by Limited pelvic CT acquisition. A total of 30 cc. An aspirate were removed through the drain with a specimens submitted for Gram stain and aerobic/anaerobic cultures. The catheter was connected to gravity drainage and secured to the skin with monofilament nylon suture. A sterile dressing was then applied. The patient tolerated the procedure well without immediate complication. CONCLUSION: Successful CT-guided percutaneous drainage of a presacral abscess by a transgluteal approach. Specimen of aspirate was submitted for Gram stain, aerobic and anaerobic cultures. Dictated by: Ashkan Prince M.D. on 07/06/2017 at 12:04 Electronically approved by: Ashkan Prince M.D. on 07/06/2017 at 12:04 Dictated By: ASHKAN PRINCE MD 1204 Transcribed By: ROSE MARIE on 07/06/17 1204 COPY TO: ASHKAN LINDO MD [facility] [place] [address] Patient Name: MESSI WELLER MR #: [id number] : 1960 Age/Sex: 57/M Req #: [id number] Adm Physician: ASHKAN LINDO MD Ordered by: NARENDRA MINA MD Report #: [id number] Location: MED/SURG Room/Bed: [facility] Procedure: DX/CHEST SINGLE (PORTABLE) Exam Date: 05/17/17 Exam Time: 0598 REPORT STATUS: Signed CHEST SINGLE (PORTABLE), 05/17/2017 5:00 AM Technique: CHEST SINGLE (PORTABLE) Comparison: 05/15/2017 Clinical history: Atelectasis Findings: See Impression Impression: 1. Lines/Tubes: Left port remains in place. Removal of ET tube and NG tube. 2. Low lung volumes with improved bibasilar atelectasis and lung aeration. Signed by: Dr Tye Zhang MD on 05/17/2017 6:02 AM Dictated By: TYE ZHANG MD 1 Transcribed By: DORIS on 05/17 COPY TO: NARENDRA MINA MD CHEST SINGLE (PORTABLE) [place] [address] Patient Name: MESSI WELLER MR #: [id number] : 1960 Age/Sex: 57/M Req #: [id number] Adm Physician: Ordered by: ASHKAN LINDO MD Report #: [id number] Location: OR Room/Bed: Procedure: [id number] DX/CHEST SINGLE (PORTABLE) Exam Date: 05/15/17 Exam Time: 0103 REPORT STATUS: Signed PROCEDURE: CHEST SINGLE (PORTABLE) COMPARISON: CT chest 05/15/2017. INDICATIONS: ETT TUBE PLACEMENT FINDINGS: Endotracheal tube tip projects 3 cm above the gregory. Enteric tube terminates off the current radiograph. Subclavian chest port catheter tip projects over the upper right atrium. Lung volumes are low with patchy perihilar opacities shown to represent atelectasis on comparison CT. Normal heart size for technique. No acute osseous abnormality. CONCLUSION: Endotracheal tube appropriately positioned, with the tip terminating 3 cm above the gregory. Patchy perihilar atelectasis seen to better advantage on comparison CT. Low lung volumes. Dictated by: Ashkan Prince M.D. on 05/15/2017 at 17:34 Electronically approved by: Ashkan Prince M.D. on 05/15/2017 at 17:34 Dictated By: ASHKAN PRINCE MD 33 Transcribed By: ROSE MARIE on 05/15/171733 COPY TO: ASHKAN LINDO MD CT CHEST W [place] [address] Patient Name: MESSI WELLER MR #: [id number] : 1960 Age/Sex: 57/M Req #: [id number] Adm Physician: Ordered by: BRIGIDA CHOW MD Report #: [id number] Location: OR Room/Bed: Procedure: [id number] CT/CT CHEST W Exam Date: 05/15/17 Exam Time: 8 REPORT STATUS: Signed PROCEDURE: CT scan of the chest WITH intravenous contrast, using standard protocol. TECHNIQUE: The chest was scanned utilizing a multidetector helical scanner from the lung apex through the level of the adrenal glands after the IV administration of 81 cc of Isovue 370. Coronal and sagittal multiplanar reformations were obtained. COMPARISON: Chest radiograph 02/17/2017. INDICATIONS: LOW O2 SAT, difficulty with intraoperative ventilation FINDINGS: Lines/tubes: Endotracheal tube tip terminates 3 cm above the gregory. Left subclavian chest port tip terminates in the high right atrium. Enteric tube tip terminates in the distal gastric body. Vasculature: The main pulmonary artery, right and left pulmonary arteries, and their visualized lobar and segmental branches are patent, without filling defect. The pulmonary outflow tract is of normal caliber. There is no ectasia or aneurysmal dilatation of the thoracic aorta. Great vessel origins are normal in caliber and configuration. Mild coronary artery calcifications.. Lungs and Airways : Bilateral lower lobe atelectasis, left greater than right. Trachea and central airways are patent. Pleura: No pleural effusion or pneumothorax. Heart and mediastinum: The visualized portions of the thyroid gland are unremarkable. No axillary, hilar, or mediastinal lymphadenopathy. Prominent epicardial fat. Soft tissues: No focal soft tissue abnormalities. Abdomen: Scattered foci of pneumoperitoneum in the upper abdomen, postsurgical. Visualized portions of the liver, gallbladder, spleen , pancreas, and right adrenal gland are normal. Bones: No osseous destructive lesions. Multilevel degenerative disc disease of the thoracic spine IMPRESSION: No pulmonary embolus to the level of the segmental branch pulmonary arteries. Dependent bilateral upper and lower lobe atelectasis, left greater than right. Atherosclerotic vascular disease. Small amount of postoperative pneumoperitoneum. Findings were discussed with Dr. Lindo of the surgical service at 5:10 PM on 05/15/2017. Dictated by: Ashkan Prince M.D. on 05/15/2017 at 17:19 Electronically approved by: Ashkan Prince M.D. on 05/15/2017 at 17:19 Dictated By: ASHKAN PRINCE MD 18 Transcribed By: ROSE MARIE on 05/15/171718 COPY TO: BRIGIDA CHOW MD
[2017-11-20] MEDS ORDERED: FENTANYL CITRATE/PF 100MCG/2 ML INJ ONE ×2 (08:54→18:22)
[2017-11-20] MEDS: TAMSULOSIN HCL 0.4 MG CAP PO SCH (09:00)
[2017-11-20] MEDS: LOSARTAN POTASSIUM 100 MG TAB PO SCH (09:00)
[2017-11-20] MEDS: FLUOXETINE HCL 20 MG CAP PO SCH (09:00)
[2017-11-20] MEDS: HYDROMORPHONE 1MG/1ML INJ IV PRN ×5 (09:45→23:00)
[2017-11-20] MEDS: ONDANSETRON HCL INJ 2 MG/ML VIAL IV PRN ×2 (09:45→20:15)
--- NOTE | 2017-11-20 10:36 | Operative Report ---
DATE OF PROCEDURE: November 20, 2017 PREOPERATIVE DIAGNOSIS: Carcinoma of rectum, status post colostomy and chemotherapy. POSTOPERATIVE DIAGNOSIS: Carcinoma of rectum, status post colostomy and chemotherapy. PROCEDURES 1. Removal of left subclavian venous access port. 2. Closure of colostomy with partial colon resection. HUMANITIES PROFESSOR: None. ANESTHESIA: General. INDICATIONS AND FINDINGS: The patient is a 57-year-old male with carcinoma of the rectum. He previously underwent chemotherapy and then resection. He had a proximal transverse loop colostomy, which was ready to be closed. He also had venous access port in the left subclavian area, which was no longer being used. At surgery, the venous access port was removed intact. There were no abnormalities in the area of the colostomy with a portion of the colon removed which appeared normal. TECHNIQUE: After adequate general endotracheal anesthesia, with the patient in the supine position, the left subclavian area and abdomen were prepped and draped in a sterile fashion with Cornelius solution. Starting at the left subclavian area, incision was made through the previous wound where the venous access port was carried on through the subcutaneous tissue. The catheter was seen in the subcutaneous tissue. It was dissected free and delivered up into the wound. It was then followed back to the subcutaneous port, which was freed from the subcutaneous pocket, and the port and catheter were removed intact. Hemostasis was seen to be adequate. Suture of 3-0 Vicryl was placed across the subcutaneous tunnel that exited toward the vein. The wound was then closed with 3-0 Vicryl in the subcutaneous tissue and ismael for the skin. Sterile dressing was applied. Attention was then turned to the area of the colostomy. There was a left transverse colostomy. Incision was made around the stoma. It was carried down into the subcutaneous tissue. The colon was freed from the subcutaneous tissue down to the fascia and then freed from the fascia throughout the circumference of the colostomy. It was a loop colostomy. It was delivered up into the wound. The distal portion of the colon where the stoma was was resected by dividing it with electrocautery and then cauterizing the vessels with electrocautery. This portion of the colon was removed. Anastomosis was made between the proximal and distal colon using a NUVIA stapler and TL-60 stapler. Hemostasis was seen to be adequate. The colon was then returned to the peritoneal cavity. The wound was irrigated with saline and inspected for hemostasis, which was seen to be adequate. The fascia was then closed with a running suture of #1 PDS. Subcutaneous tissue was irrigated with saline. Skin was closed transversely with ismael. Sterile dressing was applied. Patient tolerated the procedure well. Estimated blood loss was 30 mL. There were no complications. All counts were correct. Patient was taken to the recovery room in satisfactory condition. Job#: [id number] cc:FER SIDDIQUI MD
[2017-11-20 12:00] VITALS: BP 149/72
[2017-11-20 12:32] VITALS: BP 138/72
[2017-11-20] MEDS: CEFOXITIN 2GM/ D5W 50ML 50 ML IV SCH ×2 (13:00→17:24)
[2017-11-20 16:18] VITALS: BP 135/80
[2017-11-20] MEDS ORDERED: LIDOCAINE HCL 2% JELLY 5 ML TUBE ONE (17:57)
[2017-11-20] MEDS ORDERED: LIDOCAINE HCL 2% LOCAL INJ 5 ML SDV VIAL INJ ONE (17:57)
[2017-11-20] MEDS ORDERED: EPHEDRINE SULFATE INJ 50 MG/10 ML SYR ONE (17:57)
[2017-11-20] MEDS ORDERED: PROPOFOL IV EMULSION 10 MG/ML 20 ML VIAL ONE (17:57)
[2017-11-20] MEDS ORDERED: DEXAMETHASONE SOD PHOS INJ 4 MG/ML VIAL ONE (17:57)
[2017-11-20] MEDS ORDERED: ROCURONIUM BROMIDE 10 MG/ML 5ML VIAL ONE (17:57)
[2017-11-20] MEDS ORDERED: ACETAMINOPHEN 1000 MG/100 ML IV ONE (17:57)
[2017-11-20] MEDS ORDERED: GLYCOPYRROLATE INJ 1MG/ 5 ML SYR ONE (17:57)
[2017-11-20] MEDS ORDERED: NEOSTIGMINE 5 MG/5ML SYR ONE (17:57)
[2017-11-20] MEDS ORDERED: ONDANSETRON HCL INJ 2 MG/ML VIAL ONE (17:57)
[2017-11-20] MEDS ORDERED: SEVOFLURANE INHAL SOLN 250 ML PEN BTL ONE (17:57)
[2017-11-20] MEDS ORDERED: MIDAZOLAM HCL 2 MG/2 ML VIAL ONE (18:22)
[2017-11-20 21:16] VITALS: BP 126/68
[2017-11-20] MEDS: DEXTROSE 5%/LACTATED RINGERS 1,000 ML IV SCH ×2 (23:00→23:24)
[2017-11-21] VITALS (8 sets, daily range): BP systolic 99–132; BP diastolic 50–76
[2017-11-21] MEDS: CEFOXITIN 2GM/ D5W 50ML 50 ML IV SCH (00:48)
[2017-11-21] MEDS: HYDROMORPHONE 1MG/1ML INJ IV PRN ×4 (04:46→23:37)
[2017-11-21] MEDS: ONDANSETRON HCL INJ 2 MG/ML VIAL IV PRN ×3 (04:46→23:38)
[2017-11-21 06:53] LABS: BASOPHILS % 0.2 % (0.0-1.0); EOSINOPHILS # (AUTO) 0.1 (0.0-0.4); EOSINOPHILS % 0.8 % (0.0-6.0); HEMATOCRIT 37.7 % (38.2-49.6); HEMOGLOBIN 12.2 g/dL (14.0-18.0); LYMPHOCYTES # (AUTO) 1.1 (1.0-3.2); LYMPHOCYTES % 10.5 % (18.0-39.1); MEAN CORPUSCULAR HEMOGLOBIN 27.6 pg (28-32); MEAN CORPUSCULAR HGB CONC 32.4 g/dL (31-35); MEAN CORPUSCULAR VOLUME 85.3 fL (81-99); MONOCYTES # (AUTO) 1.2 (0.2-0.8); MONOCYTES % 11.6 % (4.4-11.3); NEUTROPHILS # (AUTO) 8.1 (2.1-6.9); NEUTROPHILS % 76.4 % (38.7-80.0); PLATELET COUNT 210 x10e3/uL (140-360); RED BLOOD COUNT 4.42 x10e6/uL (4.3-5.7)
[2017-11-21 07:24] LABS: ANION GAP 12.1 mmol/L (8-16); BLOOD UREA NITROGEN 10 mg/dL (7-26); BUN/CREATININE RATIO 13 (6-25); CALCIUM 9.1 mg/dL (8.4-10.2); CARBON DIOXIDE 26 mmol/L (22-29); CHLORIDE 102 mmol/L (98-107); CREATININE, SERUM 0.76 mg/dL (0.72-1.25); EST GLOMERULAR FILTRATION RATE > 60 ML/MIN (60-); GLUCOSE 119 mg/dL (74-118); POTASSIUM 4.1 mmol/L (3.5-5.1); SODIUM 136 mmol/L (136-145)
[2017-11-21] MEDS: TAMSULOSIN HCL 0.4 MG CAP PO SCH (09:20)
[2017-11-21] MEDS: HYDROCODONE/APAP 10MG-325MG TAB PO PRN (09:20)
[2017-11-21] MEDS: DEXTROSE 5%/LACTATED RINGERS 1,000 ML IV SCH (09:20)
[2017-11-21] MEDS: FLUOXETINE HCL 20 MG CAP PO SCH (09:20)
[2017-11-21] MEDS: LOSARTAN POTASSIUM 100 MG TAB PO SCH (09:20)
[2017-11-21] MEDS ORDERED: ACETAMINOPHEN 325 MG TAB PO PRN (15:45)
[2017-11-21] MEDS ORDERED: ACETAMINOPHEN 325 MG TAB ONE (15:59)
[2017-11-22] VITALS (9 sets, daily range): BP systolic 95–121; BP diastolic 53–64
[2017-11-22] MEDS: DEXTROSE 5%/LACTATED RINGERS 1,000 ML IV SCH ×3 (05:45→07:52)
[2017-11-22] MEDS: HYDROMORPHONE 1MG/1ML INJ IV PRN ×5 (05:52→22:19)
[2017-11-22] MEDS: ONDANSETRON HCL INJ 2 MG/ML VIAL IV PRN ×2 (05:52→10:49)
[2017-11-22] MEDS: LOSARTAN POTASSIUM 100 MG TAB PO SCH (09:00)
[2017-11-22] MEDS: TAMSULOSIN HCL 0.4 MG CAP PO SCH (09:21)
[2017-11-22] MEDS: FLUOXETINE HCL 20 MG CAP PO SCH (09:21)
[2017-11-22] MEDS ORDERED: SODIUM CHLORIDE FLUSH 10 ML SYR INJ PRN (13:00)
[2017-11-23 00:23] VITALS: BP 120/57
[2017-11-23] MEDS: HYDROMORPHONE 1MG/1ML INJ IV PRN ×2 (02:41→06:00)
[2017-11-23 04:00] VITALS: BP 110/57
[2017-11-23] MEDS: ONDANSETRON HCL INJ 2 MG/ML VIAL IV PRN (06:00)
--- NOTE | 2017-11-23 07:05 | Discharge Summary ---
ADMISSION DIAGNOSIS: Carcinoma of the rectum, status post colostomy. DISCHARGE DIAGNOSIS: Carcinoma of the rectum, status post colostomy. PRINCIPAL PROCEDURE: Closure of colostomy with partial colon resection. HISTORY OF PRESENT ILLNESS: Patient is a 57-year-old male who underwent low anterior resection of the rectum about 8 months ago. He had a colostomy and finally the coloproctostomy had healed so the colostomy could be reversed. HOSPITAL COURSE: Patient was admitted to the hospital and underwent surgery the same day as admission. He had closure of the colostomy with partial colon resection. Postoperatively, the patient remained stable. He was started on a liquid diet, which he tolerated without problems. He had fever one time, but then became afebrile. Bowel function returned normal. Vital signs were normal. Wounds were clean. He was discharged home on the 3rd postop day. At the time of discharge, he was afebrile and tolerating diet. Wounds were clean with normal bowel function. DISCHARGE MEDICATIONS: [place] for pain. Will continue all his same home meds as he took prior to admission. He will follow up with Dr. Lindo in approximately 10-14 days after discharge. He was sent home in satisfactory condition on a regular diet. ASHKAN LINDO MD Job#: [id number] [place]
[2017-11-23] MEDS ORDERED: NORCO 10-325 T1 EACH PO (07:19)
[2017-11-23] MEDS: LOSARTAN POTASSIUM 100 MG TAB PO SCH (07:54)
[2017-11-23 08:01] VITALS: BP 104/59
[2017-11-23] MEDS: FLUOXETINE HCL 20 MG CAP PO SCH (08:07)
[2017-11-23] MEDS: TAMSULOSIN HCL 0.4 MG CAP PO SCH (08:07)
[2017-11-23] MEDS: HYDROCODONE/APAP 10MG-325MG TAB PO PRN (09:16)
== END 2017-11-23 09:16 | disposition home or self-care (01) | DRG 330 ==
LOC: OR 08:15 → MED/SURG 08:44
PROVIDERS: ADMIT Surgery; ATTEND Surgery
PROC: 0DBE0ZZ Excision of Large Intestine, Open Approach (ICD-10-PCS; principal; 2017-11-20 07:07)
PROC: 0WQFXZ2 Repair Abdominal Wall, Stoma, External Approach (ICD-10-PCS; 2017-11-20 07:07)
DX: Z43.3 Encounter for attention to colostomy (principal); C19 Malignant neoplasm of rectosigmoid junction; R50.9 Fever, unspecified
CPT/HCPCS: 36415; 80048; 85025; 86850; 86900; 87040; 88305; 93005; J0694; J1100; J1170; J2001; J2250; J2405; J7120

== ENCOUNTER 2017-12-10 01:56 | Inpatient (IN) | payer BC ==
[~2017-12-10] VITALS: Ht 190.5 cm; Wt 145.1 kg
[~2017-12-10 01:56] MED LIST changes: -CEFOXITIN SOD 1 GM VIAL ONE; -ONDANSETRON HCL INJ 2 MG/ML VIAL IV PRN
--- OUTSIDE RECORDS SUMMARY | 2017-12-10 01:59 | XMS REPORT | Continuity of Care Document ---
Author Author [facility] Organization [facility] Address [address] [place] [address] Phone Unavailable Care Team Providers Care Project Landscape Architect Name Role Phone SHANELLE TORREZ MD PCP Insurance Providers Guarantor Jean-Pierre Weller Address [address] [place] [address] Email [email or web address] Payer [facility] Policy Number [id number] Subscriber's Name Darshana Weller Relationship 01 Group Number [id number] Group Name [employer]. Effective Date 17 Advance Directives Directive Response Recorded Date/Time Does the patient have an advance directive? No 11/20/17 12:28pm If yes, is advance directive on file with [facility]? No 11/20/17 12:28pm If not on file with [facility] will patient provide a copy? No 11/20/17 12:28pm Do you have a Directive to Physician? No 11/17/17 8:14am Do you have a Medical Power of Drawbench Operator? No 11/17/17 8:14am Do you have an out of hospital Do Not Resuscitate Order? No 11/17/17 8:14am Do you have any special needs we should be aware of? No 11/17/17 8:14am Do you have a support person here with you today? No 11/17/17 8:14am Did patient receive Notice of Privacy Practices? Yes 11/17/17 8:14am Did patient receive patient rights and responsibilities? Yes 11/17/17 8:14am Problems No problem information available. Medications Current Home Medications Medication Dose Units Route Directions Days Qty Instructions Start Date Fluoxetine Hcl (Prozac) 40 Mg Capsule 60 Mg Oral Daily Hydrocodone Bit/Acetaminophen ([place] 10-325 Tablet) 1 Each Tablet 10-325 Mg Oral Every 4 Hours as needed for Pain Losartan Potassium 100 Mg Tablet 100 Mg Oral Daily Tamsulosin Hcl (Flomax*) 0.4 Mg Cap 0.4 Mg Oral Daily 30 Cap Past Home Medications Medication Directions Ordered Status Amoxicillin/Potassium Clav (Augmentin 875-125 Tablet) 1 Each Tablet, 875 Mg Oral Twice A Day Discontinued Hydrocodone Bit/Acetaminophen ([place] 10-325 Tablet) 1 Each Tablet, 1 Tab Oral Every 4 Hours as needed for Pain Discontinued Lorazepam 1 Mg Tablet, 1 Mg Oral as needed for Anxiety Discontinued Losartan/Hydrochlorothiazide (Losartan-Hctz 100-12.5 Mg Tab) 1 Each Tablet, Oral Daily Discontinued Sulfamethoxazole/Trimethoprim (Bactrim Ds Tablet) 1 Each Tablet, 1 Tab Oral Twice A Day Discontinued Tamsulosin Hcl (Flomax*) 0.4 Mg Cap, 0.4 Mg Oral Twice A Day Discontinued Family History Relationship Condition Age at Onset Recorded Date/Time Not Specified FHx: cancer Not Recorded 05/15/2017 6:49pm Social History Social History Problem Response Recorded Date/Time Onset Date Status Hx Psychiatric Problems No 11/20/2017 12:28pm Not Applicable Not Applicable Hx Eating Disorder No 11/20/2017 12:28pm Not Applicable Not Applicable Hx Substance Use Disorder No 11/20/2017 12:28pm Not Applicable Not Applicable Hx Depression No 11/20/2017 12:28pm Not Applicable Not Applicable Hx Alcohol Use No 11/20/2017 12:28pm Not Applicable Not Applicable Hx Substance Use Treatment No 11/20/2017 12:28pm Not Applicable Not Applicable Hx Physical Abuse No 11/20/2017 12:28pm Not Applicable Not Applicable Hospital Discharge Instructions No hospital discharge instruction information available. Plan of Care Discharge Date 11/23/17 9:16am Disposition HOME, SELF-CARE Instructions/Education Provided Post Operative Pain Stitches and Joshua Care Prescriptions See Medication Section Referrals ASHKAN LINDO MD (Surgery) Order Date: 1-2 Weeks Entered Date: 11/23/2017 7:19am Address: [address] [place] [id number] Additional Instructions/Education regular diet Pt may shower F/U tim't with Dr. Lindo in about 10-14 days Prescription for [place] NO HEAVY LIFTING NO MORE THAN 10 POUNDS NO SPICY FOODS NO FRIED FOODS ACTIVITY TOLERATED Functional Status Query Response Date Recorded Assistive Devices None November 20, 2017 12:32pm Ambulation Ability Minimum Assistance November 20, 2017 12:32pm Toileting Ability Independent November 23, 2017 8:41am Allergies, Adverse Reactions, Alerts Allergen Type Severity Reaction Status Last Updated Codeine Allergy Unknown ABD PROBLEMS Active 08/18/17 Immunizations No immunization information available. Vital Signs Acute Vital Signs Vital Response Date/Time Temperature (Fahrenheit) 97.9 degrees F (97.6 - 99.5) 11/23/2017 8:01am Pulse Pulse Rate (adult) 65 bpm (60 - 90) 11/23/2017 8:01am Respiratory Rate 18 bpm (12 - 24) 11/23/2017 8:01am Blood Pressure 104/59 mm Hg 11/23/2017 8:01am Height 6 ft 4 in 11/20/2017 12:28pm Weight 356 lb 11/20/2017 12:28pm Body Mass Index 43.3 kg/m^2 11/20/2017 12:28pm Results Laboratory Results Test Name Result Units Flags Reference Collection Date/Time Result Date/ Time Comments Band Neutrophils % 1 % 05/18/2017 6:44am 05/18/2017 8:20am Reactive Lymphocytes 4 05/18/2017 6:44am 05/18/2017 8:20am Hypochromasia SLIGHT 05/18/2017 6:44am 05/18/2017 8:20am Bedside Glucose 169 mg/dL H 70-120 05/16/2017 12:34am 05/16/2017 12: 41am Meter ID: [id number] Lactic Acid Level 33.2 MG/DL H 4.5-19.8 05/15/2017 6:15pm 05/15/2017 6: 57pm Magnesium Level 1.8 MG/DL 1.3-2.1 05/18/2017 6:44am 05/18/2017 7:32am Total Bilirubin 0.8 mg/dL 0.2-1.2 05/15/2017 6:15pm 05/15/2017 6:57pm Aspartate Amino Transf (AST/SGOT) 23 IU/L 5-34 05/15/2017 6:15pm 2016 6:57pm Alanine Aminotransferase (ALT/SGPT) 22 IU/L 0-55 05/15/2017 6:15pm 6:57pm Ammonia 61 UG/DL 31-123 05/15/2017 8:42pm 05/15/2017 9:26pm Total Protein 6.7 g/dL 6.5-8.1 05/15/2017 6:15pm 05/15/2017 6:57pm Albumin 3.0 g/dL L 3.5-5.0 05/15/2017 6:15pm 05/15/2017 6:57pm Globulin 3.7 g/dL H 2.3-3.5 05/15/2017 6:15pm 05/15/2017 6:57pm Albumin/Globulin Ratio 0.8 0.8-2.0 05/15/2017 6:15pm 05/15/2017 6: 57pm Alkaline Phosphatase 58 IU/L 40-150 05/15/2017 6:15pm 05/15/2017 6: 57pm Creatine Kinase 116 IU/L 30-200 05/15/2017 8:42pm 05/15/2017 9:06pm Creatine Kinase MB 1.00 ng/mL 0.00-5.00 05/15/2017 8:42pm 05/15/2017 9: 15pm Troponin I < 0.001 ng/mL 0-0.300 05/15/2017 8:42pm 05/15/2017 9:15pm Arterial Blood pH 7.39 7.31-7.41 05/15/2017 7:32pm 05/15/2017 9:41pm Arterial Blood Partial Pressure CO2 34 mmHg L 41-51 05/15/2017 7:32pm 9:41pm Arterial Blood Partial Pressure O2 87 mmHg 80-105 05/15/2017 7:32pm 9:41pm Arterial Blood HCO3 21 mmol/L L 23-28 05/15/2017 7:32pm 05/15/2017 9: 41pm Arterial Blood Base Excess -4.0 mmol/L L -2 - 3 05/15/2017 7:32pm 2016 9:41pm Arterial Blood Oxygen Saturation 97.0 % 95-98 05/15/2017 7:32pm 2016 9:41pm Pt on Pressure support/Cpap PS5, 40%, +5 Prothrombin Time 13.5 seconds 11.9-14.5 07/06/2017 7:15am 07/06/2017 7: 59am Prothromb Time International Ratio 0.98 07/06/2017 7:15am 2016 7:59am Oral Anticoagulant Therapy INR Values: 1. Low Intensity Therapy 1.5 - 2.0 2. Moderate Intensity Therapy 2.0 - 3.0 3. High Intensity Therapy(1) 2.5 - 3.5 4. High Intensity Therapy(2) 3.0 - 4.0 5. Panic Value INR > 5.0 Activated Partial Thromboplast Time 28.9 seconds 23.8-35.5 07/06/2017 7: 15am 07/06/2017 7:59am Body Fluid Type ASPIRATE 07/06/2017 9:22am 07/06/2017 11:47am Body Fluid Color STRAW 07/06/2017 9:2207/06/2017 11:47am Body Fluid Appearance TURBID 07/06/2017 9:2207/06/2017 11:47am Body Fluid WBC 65696 cells/uL 07/06/2017 9:22am 07/06/2017 11:47am Body Fluid RBC 7128 cells/uL 07/06/2017 9:22am 07/06/2017 11:47am Body Fluid Neutrophils 97 % 07/06/2017 9:22am 07/06/2017 2:23pm Body Fluid Lymphocytes 3 % 07/06/2017 9:22am 07/06/2017 2:23pm Body Fluid Monocytes 0 % 07/06/2017 9:22am 07/06/2017 2:29pm Body Fluid Total Cells Counted 100 07/06/2017 9:22am 07/06/2017 2: 23pm Differential Total Cells Counted 100 08/24/2017 6:57am 08/24/2017 10:06am Neutrophils % (Manual) 87 % H 40-74 08/24/2017 6:57am 08/24/2017 10: 06am Lymphocytes % (Manual) 5 % L 19-48 08/24/2017 6:57am 08/24/2017 10:06am Monocytes % (Manual) 5 % 3.4-9.0 08/24/2017 6:57am 08/24/2017 10:06am Eosinophils % (Manual) 1 % 0-7 08/24/2017 6:57am 08/24/2017 10:06am Metamyelocytes % 1 % H 0-0 08/24/2017 6:57am 08/24/2017 10:06am Myelocytes % 1 % H 0-0 08/24/2017 6:57am 08/24/2017 10:06am Platelet Estimate ADEQUATE 08/24/2017 6:57am 08/24/2017 10:06am Platelet Morphology Comment NORMAL 08/24/2017 6:57am 08/24/2017 10: 06am Anisocytosis SLIGHT 08/24/2017 6:57am 08/24/2017 10:06am Red Cell Morphology Comment NORMAL 08/24/2017 6:57am 08/24/2017 10: 06am White Blood Count 10.53 x10e3/uL 4.8-10.8 11/21/2017 6:30am 11/21/2017 6:59am Red Blood Count 4.42 x10e6/uL 4.3-5.7 11/21/2017 6:30am 11/21/2017 6: 59am Hemoglobin 12.2 g/dL L 14.0-18.0 11/21/2017 6:30am 11/21/2017 6:59am Hematocrit 37.7 % L 38.2-49.6 11/21/2017 6:30am 11/21/2017 6:59am Mean Corpuscular Volume 85.3 fL 81-99 11/21/2017 6:30am 11/21/2017 6: 59am Mean Corpuscular Hemoglobin 27.6 pg L 28-32 11/21/2017 6:30am 2017 6:59am Mean Corpuscular Hemoglobin Concent 32.4 g/dL 31-35 11/21/2017 6:3011/21/2017 6:59am Red Cell Distribution Width 15.0 % H 11.7-14.4 11/21/2017 6:302017 6:59am Platelet Count 210 x10e3/uL 140-360 11/21/2017 6:3011/21/2017 6: 59am Neutrophils (%) (Auto) 76.4 % 38.7-80.0 11/21/2017 6:11/21/2017 6: 59am Lymphocytes (%) (Auto) 10.5 % L 18.0-39.1 11/21/2017 6:30am 11/21/2017 6 :59am Monocytes (%) (Auto) 11.6 % H 4.4-11.3 11/21/2017 6:30am 11/21/2017 6: 59am Eosinophils (%) (Auto) 0.8 % 0.0-6.0 11/21/2017 6:11/21/2017 6: 59am Basophils (%) (Auto) 0.2 % 0.0-1.0 11/21/2017 6:11/21/2017 6:59am IM GRANULOCYTES % 0.5 % 0.0-1.0 11/21/2017 6:11/21/2017 6:59am Neutrophils # (Auto) 8.1 H 2.1-6.9 11/21/2017 6:11/21/2017 6: 59am Lymphocytes # (Auto) 1.1 1.0-3.2 11/21/2017 6:am 11/21/2017 6:59am Monocytes # (Auto) 1.2 H 0.2-0.8 11/21/2017 6:11/21/2017 6:59am Eosinophils # (Auto) 0.1 0.0-0.4 11/21/2017 6:11/21/2017 6:59am Basophils # (Auto) 0.0 0.0-0.1 11/21/2017 6:30am 11/21/2017 6:59am Absolute Immature Granulocyte (auto 0.05 x10e3/uL 0-0.1 11/21/2017 6: 3011/21/2017 6:59am Sodium Level 136 mmol/L 136-145 11/21/2017 6:30am 11/21/2017 7:29am Potassium Level 4.1 mmol/L 3.5-5.1 11/21/2017 6:30am 11/21/2017 7:29am Chloride Level 102 mmol/L 98-107 11/21/2017 6:30am 11/21/2017 7:29am Carbon Dioxide Level 26 mmol/L 22-11/21/2017 6:30am 11/21/2017 7: 29am Anion Gap 12.1 mmol/L 8-16 11/21/2017 6:30am 11/21/2017 7:29am Blood Urea Nitrogen 10 mg/dL 03-2211/21/2017 6:30am 11/21/2017 7:29am Creatinine 0.76 mg/dL 0.72-1.25 11/21/2017 6:30am 11/21/2017 7:29am BUN/Creatinine Ratio 13 611/21/2017 6:30am 11/21/2017 7:29am Estimat Glomerular Filtration Rate > 60 ML/MIN 6011/21/2017 6:30am 7:29am Ranges were taken from the National Kidney Disease Education Program and the National Kidney Foundation literature. Reference ranges: 60 or greater: Normal 16-59 (for 3 consecutive months): Chronic kidney disease 15 or less: Kidney failure Glucose Level 119 mg/dL H 74-118 11/21/2017 6:30am 11/21/2017 7:29am Calcium Level 9.1 mg/dL 8.4-10.2 11/21/2017 6:30am 11/21/2017 7:29am Microbiology Results Procedure Source Organism/Result Collection Date/Time Result Date/Time Result Status Blood Culture Blood NO GROWTH AFTER 24 HOURS 11/21/2017 3:52pm 11/22/2017 5:13pm Preliminary Procedures Procedure Status Date Provider(s) INSERT TUNNELED CV CATH Completed 02/17/17 ASHKAN LINDO MD RESPIRATORY VENTILATION, LESS THAN 24 CONSECUTIVE HOURS Completed 05/15/17 ASHKAN LINDO MD RESECTION OF RECTUM, OPEN APPROACH Completed 05/15/17 ASHKAN LINDO MD BYPASS SIGMOID COLON TO CUTANEOUS, OPEN APPROACH Completed 05/15/17 ASHKAN LINDO MD EXCISION OF LARGE INTESTINE, OPEN APPROACH Completed 08/22/17 ASHKAN LINDO MD BYPASS TRANSVERSE COLON TO CUTANEOUS, OPEN APPROACH Completed 08/22/17 ASHKAN LINDO MD Colon resection Completed 11/20/17 ASHKAN LINDO MD Removal of venous port Completed 11/20/17 ASHKAN LINDO MD Computed tomography of abdomen and pelvis with contrast Active 02/01/17 GONZALES NIETO MD Computed tomography of chest with contrast Active 05/15/17 BRIGIDA CHOW MD Drainage of abscess of abdomen with computed tomography guidance Active 07/06 ASHKAN LINDO MD Magnetic resonance imaging of lumbar spine without then with contrast Active 11/03/17 MARLENE SARGENT MD Magnetic resonance imaging of pelvis without then with contrast Active MARLENE SARGENT MD Magnetic resonance imaging of pelvis without contrast Active 11/03/17 MARLENE SARGENT MD Encounters Encounter Location Arrival/Admit Date Discharge/Depart Date Attending Provider Discharged Inpatient [facility] 11/20/17 8:44am 11/23/17 9:16am ASHKAN LINDO MD Registered Clinic [facility] 11/10/17 7:22am ASHKAN LINDO MD Registered Clinic [facility] 11/03/17 9:13am MARLENE SARGENT MD Discharged Inpatient [facility] 08/22/17 2:09pm 08/27/17 11:06am ASHKAN LINDO MD Registered Clinic [facility] 07/14/17 8:29am ASHKAN LINDO MD Registered Clinic [facility] 07/06/17 6:22am ASHKAN LINDO MD Discharged Inpatient [facility] 05/15/17 5:47pm 05/21/17 11:56am ASHKAN LINDO MD Registered Surgical Day Care [facility] 02/17/17 5:45am ASHKAN LINDO MD Registered Clinic [facility] 02/01/17 7:24am GONZALES NIETO MD
[2017-12-10] MEDS ORDERED: MORPHINE SULFATE 2 MG/ML SYR IV STA ×2 (02:08→02:47)
[2017-12-10] MEDS ORDERED: ONDANSETRON HCL INJ 2 MG/ML VIAL IV STA (02:08)
[2017-12-10] MEDS ORDERED: SODIUM CHLORIDE 0.9% 1000ML 1,000 ML IV ONE (02:15)
[2017-12-10] MEDS ORDERED: MORPHINE SULFATE 2 MG/ML SYR ONE (02:28)
[2017-12-10] MEDS ORDERED: DIATRIZOATE MEGL/DIATRIZOA SOD 30 ML BTL PO ONE (02:37)
[2017-12-10 03:22] LABS: BASOPHILS # (AUTO) 0.1 (0.0-0.1); BASOPHILS % 0.7 % (0.0-1.0); EOSINOPHILS # (AUTO) 0.2 (0.0-0.4); EOSINOPHILS % 3.1 % (0.0-6.0); HEMATOCRIT 37.5 % (38.2-49.6); HEMOGLOBIN 12.1 g/dL (14.0-18.0); LYMPHOCYTES # (AUTO) 1.3 (1.0-3.2); LYMPHOCYTES % 19.1 % (18.0-39.1); MEAN CORPUSCULAR HEMOGLOBIN 27.5 pg (28-32); MEAN CORPUSCULAR HGB CONC 32.3 g/dL (31-35); MEAN CORPUSCULAR VOLUME 85.2 fL (81-99); MONOCYTES # (AUTO) 0.7 (0.2-0.8); MONOCYTES % 10.3 % (4.4-11.3); NEUTROPHILS # (AUTO) 4.5 (2.1-6.9); NEUTROPHILS % 66.2 % (38.7-80.0); PLATELET COUNT 338 x10e3/uL (140-360); RED CELL DISTRIBUTION WIDTH 14.4 % (11.7-14.4)
[2017-12-10 03:42] LABS: ALANINE AMINOTRANSFERASE 18 IU/L (0-55); ALBUMIN 3.4 g/dL (3.5-5.0); ALBUMIN/GLOBULIN RATIO 0.9 (0.8-2.0); ALKALINE PHOSPHATASE 81 IU/L (40-150); AMYLASE 47 U/L (25-125); ANION GAP 13.8 mmol/L (8-16); BLOOD UREA NITROGEN 11 mg/dL (7-26); BUN/CREATININE RATIO 14 (6-25); CALCIUM 9.3 mg/dL (8.4-10.2); CARBON DIOXIDE 22 mmol/L (22-29); CHLORIDE 104 mmol/L (98-107); CREATININE, SERUM 0.76 mg/dL (0.72-1.25); EST GLOMERULAR FILTRATION RATE > 60 ML/MIN (60-); GLUCOSE 113 mg/dL (74-118); LIPASE 23 U/L (8-78); POTASSIUM 3.8 mmol/L (3.5-5.1); SODIUM 136 mmol/L (136-145)
[2017-12-10] MEDS ORDERED: SODIUM CHLORIDE 0.9% 50ML 50 ML ONE (04:02)
[2017-12-10] MEDS ORDERED: IOPAMIDOL 370 MG/ML 200 ML INFUS..BTL INJ ONE (04:02)
[2017-12-10] MEDS ORDERED: HYDROMORPHONE 1MG/1ML INJ IV STA (04:23)
--- NOTE | 2017-12-10 04:43 | Diagnostic Imaging Report ---
EXAM: CT ABDOMEN AND PELVIS without IV CONTRAST DATE: 12/10/2017 2:08 AM Time stamp on Exam: 0408 hours INDICATION: History of rectal surgery secondary to cancer 2 weeks ago, abdominal pain COMPARISON: None TECHNIQUE: The abdomen and pelvis were scanned using a multidetector helical scanner. Coronal and sagittal reformations were obtained. Routine protocol performed. IV Contrast: None Oral Contrast: Gastrografin CTDIvol has been reviewed. It is below the limits set by the Radiation Protocol Committee (RPC). FINDINGS: LOWER THORAX: No consolidations LIVER: No masses BILIARY: The gallbladder is unremarkable. No ductal dilation. SPLEEN: No masses PANCREAS: No masses ADRENALS: No nodules KIDNEYS: Symmetric perfusion. No enhancing masses. No hydronephrosis. GI TRACT: Small hiatal hernia. Surgical sutures around the rectum. Surgical sutures around the distal transverse colon. Mild air-fluid levels throughout the colon. Normal appendix. VESSELS: Mild atherosclerotic changes of the abdominal aorta without aneurysm. PERITONEUM/RETROPERITONEUM: Presacral space thickening. No presacral air. Lower abdominal/pelvic omental stranding consistent with recent surgery. LYMPH NODES: No lymphadenopathy REPRODUCTIVE ORGANS: Unremarkable BLADDER: Marked bladder distention SOFT TISSUES: Postsurgical changes of left lower quadrant colostomy takedown. Fat-containing umbilical hernia. BONES: No suspicious bone lesions. IMPRESSION: Surgical changes of the rectum and colostomy takedown. There is nonspecific narrowing of the residual rectosigmoid colon and more proximal mild air-fluid distention of the colon. This could indicate a rectosigmoid colon stricture with partial obstruction, but is incompletely evaluated by CT. Nonspecific presacral space thickening without air to indicate abscess or leak. Very distended bladder. Signed by: Dr. Sommer Pastor M.D. on 12/10/2017 4:39 AM
[2017-12-10 05:24] LABS: CLARITY,URINE CLEAR (CLEAR); COLOR,URINE YELLOW (YELLOW); LEUKOCYTE ESTERASE ,URINE NEGATIVE (NEGATIVE); NITRITE,URINE NEGATIVE (NEGATIVE); PROTEIN,URINE DIPSTICK NEGATIVE (NEGATIVE)
[2017-12-10 05:25] LABS: BILIRUBIN,URINE NEGATIVE (NEGATIVE); KETONES,URINE NEGATIVE (NEGATIVE); URINE UROBILINOGEN 0.2 mg/dL (0.2 - 1)
[2017-12-10] MEDS ORDERED: LIDOCAINE JELLY 2% 10ML URO-JET TOP ONE (05:30)
[2017-12-10 05:33] LABS: BACTERIA,URINE RARE /HPF; EPITHELIAL CELLS,URINE RARE /LPF; WBC,URINE (MAN) 0-5 /HPF (0-5)
[2017-12-10 07:30] VITALS: BP 121/74
[2017-12-10 08:00] VITALS: BP 121/74
[2017-12-10] MEDS: TAMSULOSIN HCL 0.4 MG CAP PO SCH (08:15)
[2017-12-10] MEDS: HYDROMORPHONE 1MG/1ML INJ IV PRN ×5 (08:15→23:07)
[2017-12-10] MEDS: FLUOXETINE HCL 20 MG CAP PO SCH (08:15)
[2017-12-10] MEDS: DOCUSATE SODIUM 100 MG CAP PO SCH ×2 (08:15→16:31)
[2017-12-10] MEDS: LOSARTAN POTASSIUM 100 MG TAB PO SCH (08:15)
--- NOTE | 2017-12-10 09:27 | History and Physical ---
CHIEF COMPLAINT: Abdominal pain and urinary retention. HISTORY OF PRESENT ILLNESS: Patient is a 57-year-old male who recently underwent surgery for reversal of colostomy. This was done about 3 weeks ago. He has been having complaints of crampy abdominal pain with frequent bowel movements. This has been over the last 10 days so. Pain became severe. He came to the emergency room. Evaluation in the emergency room with CT of the abdomen and pelvis revealed some postoperative changes. No abscess seen. No free air. There were some inflammatory changes in the pelvis and also very distended urinary bladder. Patient denies nausea or vomiting. He has not had any fever. PAST MEDICAL HISTORY: The patient has a history of hypertension, carcinoma of rectum, which he had low anterior resection with end colostomy and then reversal of the colostomy. MEDICATIONS: At home were Prozac, [place], losartan, and Flomax. ALLERGIES: CODEINE. FAMILY HISTORY: Noncontributory. SOCIAL HISTORY: The patient is . He does not smoke cigarettes or drink alcohol. REVIEW OF SYSTEMS: As stated above. He has had no fever. No weight loss. He has been having frequent loose BMs. PHYSICAL EXAMINATION GENERAL: The patient is awake and alert. VITAL SIGNS: At this time are normal. HEENT: Reveals no scleral icterus. NECK: Has no masses. RESPIRATORY: Equal breath sounds are clear bilaterally. CARDIAC: Regular rate and rhythm with no murmur. ABDOMEN: Soft. Surgical wounds which are healing well. RECTAL: Has no mass. EXTREMITIES: Have no edema. LAB TESTS: White blood cell count is normal with a normal differential. Hemoglobin and hematocrit are normal. Chemistries are essentially normal. ASSESSMENT: A 57-year-old male with abdominal pain, urinary retention and frequent bowel movements. PLAN: Consult gastroenterology. Keep on liquid diet only. Patient may need flexible sigmoidoscopy to evaluate the findings seen on CT scan. Evaluate for possible changes from radiation or colitis. Job#: [id number] WIL
[2017-12-10 12:00] VITALS: BP 130/80
--- NOTE | 2017-12-10 12:03 | Consultation ---
DATE OF CONSULTATION: December 10, 2017 This is a 57 year old who is very well known to me, who has a history of colon cancer, previous colostomy, status post 3-vessel about 2 weeks or so ago, presented to the hospital because of abdominal pain along with some rectal spasms and bleeding. He denies any nausea or vomiting along with the problem. His workup so far revealed that his CBC showed a hemoglobin of 12.1 and CMP was okay. He had a CT scan of the abdomen and pelvis, which showed surgical changes in the rectum and colostomy takedown. There is nonspecific narrowing of the residual of the rectosigmoid colon and the bladder. His other problems include hypertension, history of colon cancer, status post colostomy and colostomy takedown. ALLERGIES: NONE. SOCIAL HISTORY: Denies any alcohol use. FAMILY HISTORY: Noncontributory. REVIEW OF SYSTEMS: At this point, denies any chest pain or shortness of breath. Denies any dysphagia or odynophagia. Denies any dysuria, hematuria or any kind of syncopal episode. MEDICATIONS: At home include Prozac, [place], losartan, and tamsulosin. PHYSICAL EXAMINATION GENERAL: Awake, alert and appears to be stable. Not in acute distress at this point. VITAL SIGNS: Afebrile. Stable vital signs. HEENT: Normocephalic. Anicteric sclerae. NECK: Supple. HEART: Regular. LUNGS: Clear. ABDOMEN: Soft. There is no distention at this point. There is mild lower abdominal pain. There is no rebound or mass. EXTREMITIES: No clubbing. LAB VALUES: WBC of 6.77, hemoglobin 12.1, hematocrit 37.5. Chemistry is okay. CT scan as mentioned before. IMPRESSION 1. Abdominal pain with rectal bleeding: He is 2 weeks postoperative colostomy reversal. 2. History of hypertension. RECOMMENDATIONS: Continue supportive care at this point. Follow clinically. If the patient continues to have bleeding, then we may have to do a flex sig. I told them I do not want to do that unless we have to. In the meantime, I will give nitroglycerin ointment for the rectal spasms. Also, stool softener. Job#: [id number] [place] cc:MD ASHKAN QUIJANO MD
[2017-12-10] MEDS: SODIUM CHLORIDE 0.9% 1000ML 1,000 ML IV SCH ×2 (13:19→15:00)
[2017-12-10 16:00] VITALS: BP 127/70
[2017-12-10] MEDS ORDERED: MIDAZOLAM HCL 2 MG/2 ML VIAL ONE (18:13)
[2017-12-10] MEDS ORDERED: FENTANYL CITRATE/PF 100MCG/2 ML INJ ONE (18:13)
[2017-12-10 20:00] VITALS: BP 114/59
[2017-12-10] MEDS: ONDANSETRON HCL INJ 2 MG/ML VIAL IV PRN (20:06)
[2017-12-10] MEDS: NITROGLYCERIN 2% OINT 1 GM PKT TOP PRN (20:30)
[2017-12-11] VITALS: BP 94/62
[2017-12-11] MEDS: SODIUM CHLORIDE 0.9% 1000ML 1,000 ML IV SCH ×4 (00:30→21:19)
[2017-12-11 04:00] VITALS: BP 114/69
[2017-12-11] MEDS: HYDROMORPHONE 1MG/1ML INJ IV PRN ×6 (05:30→21:00)
[2017-12-11] MEDS: ONDANSETRON HCL INJ 2 MG/ML VIAL IV PRN ×4 (05:30→21:00)
[2017-12-11 07:21] LABS: BASOPHILS % 0.5 % (0.0-1.0); EOSINOPHILS # (AUTO) 0.2 (0.0-0.4); EOSINOPHILS % 3.4 % (0.0-6.0); HEMATOCRIT 33.7 % (38.2-49.6); HEMOGLOBIN 10.8 g/dL (14.0-18.0); LYMPHOCYTES # (AUTO) 1.4 (1.0-3.2); LYMPHOCYTES % 21.3 % (18.0-39.1); MEAN CORPUSCULAR HEMOGLOBIN 27.8 pg (28-32); MEAN CORPUSCULAR VOLUME 86.9 fL (81-99); MONOCYTES # (AUTO) 0.8 (0.2-0.8); MONOCYTES % 11.9 % (4.4-11.3); NEUTROPHILS % 62.7 % (38.7-80.0); PLATELET COUNT 275 x10e3/uL (140-360); RED BLOOD COUNT 3.88 x10e6/uL (4.3-5.7); RED CELL DISTRIBUTION WIDTH 14.5 % (11.7-14.4)
[2017-12-11 08:00] VITALS: BP 122/77
[2017-12-11 08:19] LABS: ALANINE AMINOTRANSFERASE 16 IU/L (0-55); ALBUMIN/GLOBULIN RATIO 0.9 (0.8-2.0); ALKALINE PHOSPHATASE 69 IU/L (40-150); ANION GAP 10.7 mmol/L (8-16); BLOOD UREA NITROGEN 6 mg/dL (7-26); BUN/CREATININE RATIO 8 (6-25); CARBON DIOXIDE 25 mmol/L (22-29); CHLORIDE 104 mmol/L (98-107); CREATININE, SERUM 0.78 mg/dL (0.72-1.25); EST GLOMERULAR FILTRATION RATE > 60 ML/MIN (60-); GLUCOSE 93 mg/dL (74-118); POTASSIUM 3.7 mmol/L (3.5-5.1); SODIUM 136 mmol/L (136-145)
[2017-12-11] MEDS: DOCUSATE SODIUM 100 MG CAP PO SCH ×2 (09:00→16:10)
[2017-12-11] MEDS: FLUOXETINE HCL 20 MG CAP PO SCH (09:00)
[2017-12-11] MEDS: TAMSULOSIN HCL 0.4 MG CAP PO SCH (09:00)
[2017-12-11] MEDS: LOSARTAN POTASSIUM 100 MG TAB PO SCH (09:00)
[2017-12-11 12:00] VITALS: BP 122/82
[2017-12-11] MEDS: NITROGLYCERIN 2% OINT 1 GM PKT TOP PRN (15:00)
[2017-12-11 16:00] VITALS: BP 107/79
[2017-12-11 20:00] VITALS: BP 119/57
[2017-12-11] MEDS ORDERED: CITRATE OF MAGNESIA 300ML BOTTLE PO ONE (21:00)
[2017-12-11] MEDS ORDERED: BISACODYL 5 MG TAB EC PO ONE (21:00)
[2017-12-12] VITALS (8 sets, daily range): BP systolic 100–129; BP diastolic 55–68
[2017-12-12] MEDS: ONDANSETRON HCL INJ 2 MG/ML VIAL IV PRN ×4 (00:10→15:45)
[2017-12-12] MEDS: HYDROMORPHONE 1MG/1ML INJ IV PRN ×8 (00:10→23:17)
[2017-12-12] MEDS ORDERED: SOD PHOSPHATE/SOD BIPHOSPHATE ENEMA 132 ML BTL PR ONE (05:00)
[2017-12-12] MEDS: SODIUM CHLORIDE 0.9% 1000ML 1,000 ML IV SCH ×3 (05:19→23:17)
[2017-12-12] MEDS: BALSAM PERU/CASTOR OIL 60 GM OINT...G. TP SCH ×3 (08:00→16:39)
[2017-12-12] MEDS: DOCUSATE SODIUM 100 MG CAP PO SCH ×2 (09:00→16:39)
[2017-12-12] MEDS: TAMSULOSIN HCL 0.4 MG CAP PO SCH (09:00)
[2017-12-12] MEDS: LOSARTAN POTASSIUM 100 MG TAB PO SCH (09:00)
[2017-12-12] MEDS: FLUOXETINE HCL 20 MG CAP PO SCH (09:00)
[2017-12-12] MEDS ORDERED: LIDOCAINE HCL 2% LOCAL INJ 5 ML SDV VIAL INJ ONE (17:34)
[2017-12-12] MEDS ORDERED: PROPOFOL IV EMULSION 10 MG/ML 50 ML VIAL ONE (17:34)
[2017-12-13] VITALS (7 sets, daily range): BP systolic 88–126; BP diastolic 52–76
[2017-12-13] MEDS: HYDROMORPHONE 1MG/1ML INJ IV PRN ×6 (03:35→21:06)
[2017-12-13] MEDS: SODIUM CHLORIDE 0.9% 1000ML 1,000 ML IV SCH ×2 (05:03→13:19)
[2017-12-13] MEDS: ONDANSETRON HCL INJ 2 MG/ML VIAL IV PRN ×3 (07:18→21:06)
[2017-12-13] MEDS: BALSAM PERU/CASTOR OIL 60 GM OINT...G. TP SCH ×3 (08:00→17:00)
[2017-12-13] MEDS ORDERED: HYDROCORTISONE 100 MG/60 ML ENEMA RC SCH (08:00)
[2017-12-13] MEDS: FLUOXETINE HCL 20 MG CAP PO SCH (08:40)
[2017-12-13] MEDS: LOSARTAN POTASSIUM 100 MG TAB PO SCH (08:40)
[2017-12-13] MEDS: TAMSULOSIN HCL 0.4 MG CAP PO SCH (08:40)
[2017-12-13] MEDS: DOCUSATE SODIUM 100 MG CAP PO SCH ×2 (08:41→16:59)
[2017-12-13] MEDS: HYDROCODONE/APAP 10MG-325MG TAB PO PRN ×4 (08:57→21:45)
[2017-12-13] MEDS: PIPER-TAZ 3.375 GM 50 ML IV SCH ×2 (12:30→18:35)
[2017-12-13] MEDS: HYDROCORTISONE 100 MG/60 ML ENEMA RC SCH (18:35)
[2017-12-14] MEDS: SODIUM CHLORIDE 0.9% 1000ML 1,000 ML IV SCH ×3 (00:39→13:19)
[2017-12-14] MEDS: PIPER-TAZ 3.375 GM 50 ML IV SCH ×4 (00:39→17:50)
[2017-12-14] MEDS: HYDROMORPHONE 1MG/1ML INJ IV PRN ×7 (01:13→21:20)
[2017-12-14] MEDS: HYDROCODONE/APAP 10MG-325MG TAB PO PRN ×5 (02:05→21:00)
[2017-12-14] MEDS: ONDANSETRON HCL INJ 2 MG/ML VIAL IV PRN (05:15)
[2017-12-14] MEDS: HYDROCORTISONE 100 MG/60 ML ENEMA RC SCH ×3 (06:32→21:45)
[2017-12-14 08:00] VITALS: BP 142/84
[2017-12-14] MEDS: BALSAM PERU/CASTOR OIL 60 GM OINT...G. TP SCH ×3 (08:00→17:00)
[2017-12-14] MEDS: FLUOXETINE HCL 20 MG CAP PO SCH (08:35)
[2017-12-14] MEDS: LOSARTAN POTASSIUM 100 MG TAB PO SCH (08:35)
[2017-12-14] MEDS: TAMSULOSIN HCL 0.4 MG CAP PO SCH (08:35)
[2017-12-14] MEDS: DOCUSATE SODIUM 100 MG CAP PO SCH ×2 (09:00→16:42)
[2017-12-14 12:00] VITALS: BP 92/55
[2017-12-14 14:42] LABS: BASOPHILS % 0.7 % (0.0-1.0); EOSINOPHILS # (AUTO) 0.7 (0.0-0.4); EOSINOPHILS % 11.7 % (0.0-6.0); HEMATOCRIT 33.3 % (38.2-49.6); HEMOGLOBIN 10.8 g/dL (14.0-18.0); LYMPHOCYTES # (AUTO) 1.3 (1.0-3.2); LYMPHOCYTES % 22.1 % (18.0-39.1); MEAN CORPUSCULAR HEMOGLOBIN 27.6 pg (28-32); MEAN CORPUSCULAR HGB CONC 32.4 g/dL (31-35); MEAN CORPUSCULAR VOLUME 85.2 fL (81-99); MONOCYTES # (AUTO) 0.7 (0.2-0.8); MONOCYTES % 11.5 % (4.4-11.3); NEUTROPHILS % 53.6 % (38.7-80.0); PLATELET COUNT 214 x10e3/uL (140-360); RED BLOOD COUNT 3.91 x10e6/uL (4.3-5.7); RED CELL DISTRIBUTION WIDTH 13.9 % (11.7-14.4)
[2017-12-14 14:58] LABS: ALANINE AMINOTRANSFERASE 15 IU/L (0-55); ALBUMIN 3.1 g/dL (3.5-5.0); ALKALINE PHOSPHATASE 72 IU/L (40-150); ANION GAP 11.8 mmol/L (8-16); BLOOD UREA NITROGEN < 5 mg/dL (7-26); BUN/CREATININE RATIO 6 (6-25); CARBON DIOXIDE 27 mmol/L (22-29); CHLORIDE 104 mmol/L (98-107); CREATININE, SERUM 0.85 mg/dL (0.72-1.25); EST GLOMERULAR FILTRATION RATE > 60 ML/MIN (60-); GLUCOSE 103 mg/dL (74-118); POTASSIUM 3.8 mmol/L (3.5-5.1); SODIUM 139 mmol/L (136-145)
[2017-12-14 14:59] LABS: % IRON SATURATION 9 % (15-50); IRON 30 ug/dL (65-175); TOTAL IRON BINDING CAPACITY 316 ug/dL (261-478); TRANSFERRIN 226 mg/dL (174-364)
[2017-12-14 16:00] VITALS: BP 155/99
[2017-12-14] MEDS: ONDANSETRON HCL 4 MG ORAL DISINTEGRATING TAB PO PRN ×2 (17:51→21:20)
[2017-12-14 20:00] VITALS: BP 121/82
[2017-12-15] VITALS (7 sets, daily range): BP systolic 106–142; BP diastolic 73–101
[2017-12-15] MEDS: SODIUM CHLORIDE 0.9% 1000ML 1,000 ML IV SCH ×3 (00:15→13:19)
[2017-12-15] MEDS: PIPER-TAZ 3.375 GM 50 ML IV SCH ×3 (00:15→12:00)
[2017-12-15] MEDS: HYDROMORPHONE 1MG/1ML INJ IV PRN ×4 (00:20→12:41)
[2017-12-15] MEDS: ONDANSETRON HCL 4 MG ORAL DISINTEGRATING TAB PO PRN (05:47)
[2017-12-15] MEDS: HYDROCORTISONE 100 MG/60 ML ENEMA RC SCH ×2 (05:47→14:00)
[2017-12-15] MEDS: HYDROCODONE/APAP 10MG-325MG TAB PO PRN ×3 (07:08→15:37)
[2017-12-15] MEDS: BALSAM PERU/CASTOR OIL 60 GM OINT...G. TP SCH ×3 (08:00→17:00)
[2017-12-15] MEDS: DOCUSATE SODIUM 100 MG CAP PO SCH ×2 (09:00→17:00)
[2017-12-15] MEDS: FLUOXETINE HCL 20 MG CAP PO SCH (09:00)
[2017-12-15] MEDS: LOSARTAN POTASSIUM 100 MG TAB PO SCH (09:00)
[2017-12-15] MEDS: TAMSULOSIN HCL 0.4 MG CAP PO SCH (09:00)
[2017-12-15] MEDS ORDERED: [UNRECOGNIZED DRUG - REMARK] (16:25)
[2017-12-15] MEDS ORDERED: AUGMENTIN 875-1 EACH PO (16:26)
[2017-12-15] MEDS ORDERED: NORCO 10-325 T1 EACH (16:26)
[2017-12-15] MEDS ORDERED: CORTISONE RC (16:51)
--- NOTE | 2017-12-15 22:51 | Discharge Summary ---
ADMISSION DIAGNOSES 1. Abdominal pain. 2. Rectal bleeding. 3. Diarrhea. DISCHARGE DIAGNOSES 1. Abdominal pain. 2. Rectal bleeding. 3. Diarrhea. 4. Rectal ulcer. 5. Rectal stricture. PRINCIPAL PROCEDURE: Colonoscopy. HISTORY OF PRESENT ILLNESS: Patient is a 57-year-old male, history of rectal cancer, radiation to the pelvis, who had coloproctostomy. He had a fistula from there, which was healed. He had a proximal colostomy, which was closed recently and now, he has complaints of severe crampy abdominal pain with frequent bowel movements of 12 a day and he was admitted to the hospital because of these symptoms, also with some rectal bleeding. HOSPITAL COURSE: Patient admitted to the hospital, kept on a liquid diet with frequent bowel movements improved with the liquid diet. He underwent consultation by gastroenterology and then, colonoscopy, which was limited to just the proctoscopy, where there was found to be some inflammation and swelling at the site of the coloproctostomy. Started on medical therapy with Cortenema, as well as IV antibiotics. The symptoms improved. He was advanced to full liquid and then, soft diet. At time of discharge, he was having 4-5 bowel movements per day and abdominal pain was less DISCHARGE MEDICATIONS: Cortenema, Augmentin, and [place]. Will follow up with Dr. Lindo approximately 1 week after discharge, sent home in a satisfactory condition on a soft diet. ASHKAN LINDO MD Job#: [id number] CQ
== END 2017-12-15 17:25 | disposition home or self-care (01) | DRG 394 ==
LOC: ER 01:56 → ERHOLD 05:22 → MED/SURG2 06:04
PROVIDERS: ADMIT Surgery; ATTEND Surgery
PROC: 0DBP8ZX Excision of Rectum, Via Natural or Artificial Opening Endoscopic, Diagnostic (ICD-10-PCS; principal; 2017-12-12 07:00)
DX: K62.6 Ulcer of anus and rectum (principal); K62.5 Hemorrhage of anus and rectum; K62.4 Stenosis of anus and rectum; I10 Essential (primary) hypertension; R33.9 Retention of urine, unspecified; Z85.038 Personal history of other malignant neoplasm of large intestine; Z92.3 Personal history of irradiation
CPT/HCPCS: 36415; 45378; 45380; 51700; 74177; 80053; 81001; 82150; 82948; 83540; 83690; 84466; 85025; 87493; 88305; 93005; 99284; J1170; J2001; J2250; J2270; J2405; J2543; J7030; Q9967

== ENCOUNTER 2018-01-12 10:05 | Inpatient (IN) | payer BC ==
[2018-01-10 09:56] LABS: BASOPHILS % 0.5 % (0.0-1.0); EOSINOPHILS # (AUTO) 0.1 (0.0-0.4); EOSINOPHILS % 1.7 % (0.0-6.0); HEMATOCRIT 40.2 % (38.2-49.6); HEMOGLOBIN 12.7 g/dL (14.0-18.0); LYMPHOCYTES # (AUTO) 1.9 (1.0-3.2); LYMPHOCYTES % 24.8 % (18.0-39.1); MEAN CORPUSCULAR HEMOGLOBIN 27.1 pg (28-32); MEAN CORPUSCULAR HGB CONC 31.6 g/dL (31-35); MEAN CORPUSCULAR VOLUME 85.9 fL (81-99); MONOCYTES # (AUTO) 0.8 (0.2-0.8); NEUTROPHILS # (AUTO) 4.8 (2.1-6.9); NEUTROPHILS % 62.4 % (38.7-80.0); PLATELET COUNT 294 x10e3/uL (140-360); RED BLOOD COUNT 4.68 x10e6/uL (4.3-5.7); RED CELL DISTRIBUTION WIDTH 13.9 % (11.7-14.4)
[2018-01-10 10:17] LABS: ANION GAP 14.6 mmol/L (8-16); BLOOD UREA NITROGEN 11 mg/dL (7-26); BUN/CREATININE RATIO 14 (6-25); CALCIUM 10.1 mg/dL (8.4-10.2); CARBON DIOXIDE 26 mmol/L (22-29); CHLORIDE 106 mmol/L (98-107); CREATININE, SERUM 0.81 mg/dL (0.72-1.25); EST GLOMERULAR FILTRATION RATE > 60 ML/MIN (60-); GLUCOSE 117 mg/dL (74-118); POTASSIUM 4.6 mmol/L (3.5-5.1); SODIUM 142 mmol/L (136-145)
[~2018-01-12] VITALS: Ht 190.5 cm; Wt 145.1 kg
[~2018-01-12 10:05] MED LIST changes: +CORTISONE RC; +NORCO 10-325 T1 EACH; +[UNRECOGNIZED DRUG - REMARK]
--- OUTSIDE RECORDS SUMMARY | 2018-01-12 10:08 | XMS REPORT | Continuity of Care Document ---
Author Author [facility] Organization [facility] Address [address] [place] [address] Phone Unavailable Care Team Providers Care Vending Machine Host/Hostess Name Role Phone SHANELLE TORREZ MD PCP Insurance Providers Guarantor Jean-Pierre Weller Address [address] [place] [address] Email [email or web address] [facility] Policy Number [id number] Subscriber's Name Darshana Weller Relationship 01 Group Number [id number] Group Name [employer]. Effective Date 17 Advance Directives Directive Response Recorded Date/Time Does the patient have an advance directive? No 12/10/17 7:30am If yes, is advance directive on file with [facility]? No 12/10/17 7:30am If not on file with [facility] will patient provide a copy? Yes 12/10/17 7:30am Do you have a Directive to Physician? No 12/10/17 1:55am Do you have a Medical Power of Tank Erector? No 12/10/17 1:55am Do you have an out of hospital Do Not Resuscitate Order? No 12/10/17 1:55am Do you have any special needs we should be aware of? No 12/10/17 1:55am Do you have a support person here with you today? Yes 12/10/17 1:55am Did patient receive Notice of Privacy Practices? Yes 12/10/17 1:55am Did patient receive patient rights and responsibilities? Yes 12/10/17 1:55am Problems Medical Problem Onset Date Status Post-op pain Unknown Urinary retention Unknown Medications Current Home Medications Medication Dose Units Route Directions Days Qty Instructions Start Date Amoxicillin/Potassium Clav (Augmentin 875-125 Tablet) 1 Each Tablet 875 Mg Oral Twice A Day 20 Tab Cortisone Enema Mg Rectal Twice A Day 20 Fluoxetine Hcl (Prozac) 40 Mg Capsule 60 Mg Oral Daily Hydrocodone Bit/Acetaminophen (Beasley 10-325 Tablet) 1 Each Tablet Mg Every 4 Hours 50 Losartan Potassium 100 Mg Tablet 100 Mg Oral Daily Tamsulosin Hcl (Flomax*) 0.4 Mg Cap 0.4 Mg Oral Daily 30 Cap Past Home Medications Medication Directions Ordered Status Amoxicillin/Potassium Clav (Augmentin 875-125 Tablet) 1 Each Tablet, 875 Mg Oral Twice A Day Discontinued Corticoid Enema , Discontinued Hydrocodone Bit/Acetaminophen (Beasley 10-325 Tablet) 1 Each Tablet, 10-325 Mg Oral Every 4 Hours as needed for Pain Discontinued Hydrocodone Bit/Acetaminophen (Beasley 10-325 Tablet) 1 Each Tablet, 1 Tab [...] Applicable Not Applicable Hx Eating Disorder No 12/10/2017 7:30am Not Applicable Not Applicable Hx Substance Use Disorder No 12/10/2017 7:30am Not Applicable Not Applicable Hx Depression Yes 12/10/2017 7:30am Not Applicable Not Applicable Hx Alcohol Use No 12/10/2017 7:30am Not Applicable Not Applicable Hx Substance Use Treatment No 12/10/2017 7:30am Not Applicable Not Applicable Hx Physical Abuse No 12/10/2017 7:30am Not Applicable Not Applicable Smoking Status Start Date Stop Date Never Smoker Hospital Discharge Instructions No hospital discharge instruction information available. Plan of Care Discharge Date 12/15/17 5:25pm Disposition HOME, SELF-CARE Instructions/Education Provided Abdominal Pain - Adult Prescriptions See Medication Section Referrals ASHKNA VARGAS MD (Surgery) Order Date: 1 Week Entered Date: 12/15/2017 4:24pm Address: [address] [place] [id number] Additional Instructions/Education GI SOFT DIET ,ACTIVITY TOLERATED Functional Status Query Response Date Recorded Assistive Devices None December 10, 2017 7:30am Ambulation Ability Independent December 10, 2017 7:30am Toileting Ability Independent December 15, 2017 9:33am Allergies, Adverse Reactions, Alerts Allergen Type Severity Reaction Status Last Updated Codeine Allergy Unknown ABD PROBLEMS Active 08/18/17 Immunizations No immunization information available. Vital Signs Acute Vital Signs Vital Response Date/Time Temperature (Fahrenheit) 96.5 degrees F (97.6 - 99.5) 12/15/2017 4:03pm Pulse Pulse Rate (adult) 65 bpm (60 - 90) 12/15/2017 4:03pm Respiratory Rate 19 bpm (12 - 24) 12/15/2017 4:03pm Blood Pressure 128/77 mm Hg 12/15/2017 4:03pm Height 6 ft 3 in 12/10/2017 2:14am Weight 320 lb 12/10/2017 2:14am Body Mass Index 40.0 kg/m^2 12/10/2017 10:35am Results Laboratory Results Test Name Result Units Flags Reference Collection Date/Time Result Date/ Time Comments Band Neutrophils % 1 % 05/18/2017 6:44am 05/18/2017 8:20am Reactive Lymphocytes 4 05/18/2017 6:44am 05/18/2017 8:20am Hypochromasia SLIGHT 05/18/2017 6:44am 05/18/2017 8:20am Lactic Acid Level 33.2 MG/DL H 4.5-19.8 05/15/2017 6:15pm 05/15/2017 6: 57pm Magnesium Level 1.8 MG/DL 1.3-2.1 05/18/2017 6:44am 05/18/2017 7:32am Ammonia 61 UG/DL 31-123 05/15/2017 8:42pm 05/15/2017 9:26pm Creatine Kinase 116 IU/L 30-200 05/15/2017 8:42pm 05/15/2017 9:06pm Creatine Kinase MB 1.00 ng/mL 0.00-5.00 05/15/2017 8:42pm 05/15/2017 9: 15pm Troponin I < 0.001 ng/mL 0-0.300 05/15/2017 8:42pm 05/15/2017 9:15pm Arterial Blood pH 7.39 7.31-7.41 05/15/2017 7:32p05/15/2017 9:41pm Arterial Blood Partial Pressure CO2 34 mmHg L 41-51 05/15/2017 7:32p 9:41pm Arterial Blood Partial Pressure O2 87 mmHg 80-105 05/15/2017 7:32p 9:41pm Arterial Blood HCO3 21 mmol/L L 23-28 05/15/2017 7:32p05/15/2017 9: 41pm Arterial Blood Base Excess -4.0 mmol/L L -2 - 3 05/15/2017 7:32p 2016 9:41pm Arterial Blood Oxygen Saturation 97.0 % 95-98 05/15/2017 7:32p2016 9:41pm Pt on Pressure support/Cpap PS5, 40%, [...] 07/06/2017 11:47am Body Fluid Color STRAW 07/06/2017 9:22am 07/06/2017 11:47am Body Fluid Appearance TURBID 07/06/2017 9:22am 07/06/2017 11:47am Body Fluid WBC 84739 cells/uL 07/06/2017 9:22am 07/06/2017 11:47am Body Fluid [...] 6:57am 08/24/2017 10: 06am White Blood Count 5.66 x10e3/uL 4.8-10.8 12/14/2017 2:30pm 12/14/2017 2 :43pm Red Blood Count 3.91 x10e6/uL L 4.3-5.7 12/14/2017 2:30pm 12/14/2017 2: 43pm Hemoglobin 10.8 g/dL L 14.0-18.0 12/14/2017 2:30pm 12/14/2017 2:43pm Hematocrit 33.3 % L 38.2-49.6 12/14/2017 2:30pm 12/14/2017 2:43pm Mean Corpuscular Volume 85.2 fL 81-99 12/14/2017 2:30pm 12/14/2017 2: 43pm Mean Corpuscular Hemoglobin 27.6 pg L 28-32 12/14/2017 2:30pm 2017 2:43pm Mean Corpuscular Hemoglobin Concent 32.4 g/dL 31-35 12/14/2017 2:30pm 12/14/2017 2:43pm Red Cell Distribution Width 13.9 % 11.7-14.4 12/14/2017 2:30pm 2017 2:43pm Platelet Count 214 x10e3/uL 140-360 12/14/2017 2:30pm 12/14/2017 2: 43pm Neutrophils (%) (Auto) 53.6 % 38.7-80.0 12/14/2017 2:30pm 12/14/2017 2: 43pm Lymphocytes (%) (Auto) 22.1 % 18.0-39.1 12/14/2017 2:30pm 12/14/2017 2: 43pm Monocytes (%) (Auto) 11.5 % H 4.4-11.3 12/14/2017 2:30pm 12/14/2017 2: 43pm Eosinophils (%) (Auto) 11.7 % H 0.0-6.0 12/14/2017 2:30pm 12/14/2017 2: 43pm Basophils (%) (Auto) 0.7 % 0.0-1.0 12/14/2017 2:30pm 12/14/2017 2:43pm IM GRANULOCYTES % 0.4 % 0.0-1.0 12/14/2017 2:30pm 12/14/2017 2:43pm Neutrophils # (Auto) 3.0 2.1-6.9 12/14/2017 2:30pm 12/14/2017 2:43pm Lymphocytes # (Auto) 1.3 1.0-3.2 12/14/2017 2:30pm 12/14/2017 2:43pm Monocytes # (Auto) 0.7 0.2-0.8 12/14/2017 2:30pm 12/14/2017 2:43pm Eosinophils # (Auto) 0.7 H 0.0-0.4 12/14/2017 2:30pm 12/14/2017 2: 43pm Basophils # (Auto) 0.0 0.0-0.1 12/14/2017 2:30pm 12/14/2017 2:43pm Absolute Immature Granulocyte (auto 0.02 x10e3/uL 0-0.1 12/14/2017 2: 30pm 12/14/2017 2:43pm Urine Color YELLOW YELLOW 12/10/2017 5:15am 12/10/2017 5:25am Urine Clarity CLEAR CLEAR 12/10/2017 5:1512/10/2017 5:25am Urine Specific [place] 1.015 1.010-1.025 12/10/2017 5:152017 5:25am Urine pH 7 5 - 7 12/10/2017 5:1512/10/2017 5:25am Urine Leukocyte Esterase NEGATIVE NEGATIVE 12/10/2017 5:15am 2017 5:25am Urine Nitrite NEGATIVE NEGATIVE 12/10/2017 5:15am 12/10/2017 5:25am Urine Protein NEGATIVE NEGATIVE 12/10/2017 5:15am 12/10/2017 5:25am Urine Glucose (UA) NEGATIVE NEGATIVE 12/10/2017 5:15am 12/10/2017 5: 25am Urine Ketones NEGATIVE NEGATIVE 12/10/2017 5:15am 12/10/2017 5:25am Urine Urobilinogen 0.2 mg/dL 0.2 - 1 12/10/2017 5:15am 12/10/2017 5: 25am Urine Bilirubin NEGATIVE NEGATIVE 12/10/2017 5:15am 12/10/2017 5: 25am Urine Blood NEGATIVE NEGATIVE 12/10/2017 5:15am 12/10/2017 5:25am Urine WBC 0-5 /HPF 0-5 12/10/2017 5:15am 12/10/2017 5:34am Urine RBC 11-20 /HPF H 0-5 12/10/2017 5:15am 12/10/2017 5:34am Urine Bacteria RARE /HPF NONE 12/10/2017 5:15am 12/10/2017 5:34am Urine Epithelial Cells RARE /LPF NONE 12/10/2017 5:15am 12/10/2017 5: 34am Sodium Level 139 mmol/L 136-145 12/14/2017 2:30pm 12/14/2017 2:58pm Potassium Level 3.8 mmol/L 3.5-5.1 12/14/2017 2:30pm 12/14/2017 2:58pm Chloride Level 104 mmol/L 98-107 12/14/2017 2:30pm 12/14/2017 2:58pm Carbon Dioxide Level 27 mmol/L 22-29 12/14/2017 2:30pm 12/14/2017 2: 58pm Anion Gap 11.8 mmol/L 8-16 12/14/2017 2:30pm 12/14/2017 2:58pm Blood Urea Nitrogen < 5 mg/dL L 7-12/14/2017 2:30pm 12/14/2017 2: 58pm Creatinine 0.85 mg/dL 0.72-1.25 12/14/2017 2:30pm 12/14/2017 2:58pm BUN/Creatinine Ratio 6 6-25 12/14/2017 2:30pm 12/14/2017 2:58pm Estimat Glomerular Filtration Rate > 60 ML/MIN 60- 12/14/2017 2:30pm 2:58pm Ranges were taken from the National Kidney Disease Education Program and the National Kidney Foundation literature. Reference ranges: 60 or greater: Normal 16-59 (for 3 consecutive months): Chronic kidney disease 15 or less: Kidney failure Glucose Level 103 mg/dL 74-118 12/14/2017 2:30pm 12/14/2017 2:58pm Calcium Level 9.0 mg/dL 8.4-10.2 12/14/2017 2:30pm 12/14/2017 2:58pm Bedside Glucose 95 mg/dL 70-120 12/10/2017 11:08am 12/10/2017 12:10pm Meter ID: [id number] Iron Level 30 ug/dL L 65-175 12/14/2017 2:30pm 12/14/2017 2:59pm Total Iron Binding Capacity 316 ug/dL 261-478 12/14/2017 2:30pm 2017 2:59pm Percent Iron Saturation 9 % L 15-50 12/14/2017 2:30pm 12/14/2017 2:59pm Transferrin 226 mg/dL 174-364 12/14/2017 2:30pm 12/14/2017 2:59pm Total Bilirubin 0.3 mg/dL 0.2-1.2 12/14/2017 2:30pm 12/14/2017 2:58pm Aspartate Amino Transf (AST/SGOT) 16 IU/L 5-34 12/14/2017 2:30pm 2017 2:58pm Alanine Aminotransferase (ALT/SGPT) 15 IU/L 0-55 12/14/2017 2:30pm 2:58pm Total Protein 6.3 g/dL L 6.5-8.1 12/14/2017 2:30pm 12/14/2017 2:58pm Albumin 3.1 g/dL L 3.5-5.0 12/14/2017 2:30pm 12/14/2017 2:58pm Globulin 3.2 g/dL 2.3-3.5 12/14/2017 2:30pm 12/14/2017 2:58pm Albumin/Globulin Ratio 1.0 0.8-2.0 12/14/2017 2:30pm 12/14/2017 2: 58pm Alkaline Phosphatase 72 IU/L 40-150 12/14/2017 2:30pm 12/14/2017 2: 58pm Amylase Level 47 U/L 25-125 12/10/2017 2:16am 12/10/2017 3:49am Lipase 23 U/L 8-78 12/10/2017 2:16am 12/10/2017 3:49am Clostridium Difficile Toxin A & B NEGATIVE NEGATIVE 12/12/2017 11: 15pm 12/13/2017 1:34pm Testing on stool aspirate specimens is outside tennis net maker claims since specimen type not validated on this assay. Microbiology Results Procedure Source Organism/Result Collection Date/Time Result Date/Time Result Status Blood Culture Blood NO GROWTH AFTER 5 DAYS, FINAL REPORT 11/21/2017 3:52pm 11/26/2017 5:13pm Final Procedures Procedure Status Date Provider(s) RESPIRATORY VENTILATION, LESS THAN 24 CONSECUTIVE HOURS Completed 05/15/17 ASHKAN VARGAS MD RESECTION OF RECTUM, OPEN APPROACH Completed 05/15/17 ASHKAN VARGAS MD BYPASS SIGMOID COLON TO CUTANEOUS, OPEN APPROACH Completed 05/15/17 ASHKAN VARGAS MD EXCISION OF LARGE INTESTINE, OPEN APPROACH Completed 08/22/17 ASHKAN VARGAS MD BYPASS TRANSVERSE COLON TO CUTANEOUS, OPEN APPROACH Completed 08/22/17 ASHKAN VARGAS MD EXCISION OF LARGE INTESTINE, OPEN APPROACH Completed 11/20/17 ASHKAN VARGAS MD REPAIR ABDOMINAL WALL, STOMA, EXTERNAL APPROACH Completed 11/20/17 ASHKAN VARGAS MD Colonoscopy with biopsy Completed 12/12/17 GONZALES NIETO MD Computed tomography of chest with contrast Active 05/15/17 BRIGIDA CHOW MD Drainage of abscess of abdomen with computed tomography guidance Active 07/06 ASHKAN VARGAS MD Magnetic resonance imaging of lumbar spine without then with contrast Active 11/03/17 MARLENE SARGENT MD Magnetic resonance imaging of pelvis without then with contrast Active MARLENE SARGENT MD Magnetic resonance imaging of pelvis without contrast Active 11/03/17 MARLENE SARGENT MD Computed tomography of abdomen and pelvis with contrast Active 12/10/17 BRIGIDA LOERA MD Encounters Encounter Location Arrival/Admit Date Discharge/Depart Date Attending Provider Discharged [facility]patient [facility] 12/10/17 5:22am 12/15/17 5:25pm ASHKAN VARGAS MD Discharged Inpatient [facility] 11/20/17 8:44am 11/23/17 9:16am ASHKAN VARGAS MD Registered Clinic [facility] 11/10/17 7:22am ASHKAN VARGAS MD Registered Clinic [facility] 11/03/17 9:13am MARLENE SARGENT MD Discharged Inpatient [facility] 08/22/17 2:09pm 12/31/17 11:06am ASHKAN VARGAS MD Registered [facility] 07/14/17 8:29am ASHKAN VARGAS MD Registered [facility] 07/06/17 6:22am ASHKAN VARGAS MD Discharged Inpatient [facility] 05/15/17 5:47pm 05/21/17 11:56am ASHKAN VARGAS MD
[2018-01-12] MEDS ORDERED: CEFOXITIN SOD 1 GM VIAL ONE (10:21)
[2018-01-12] MEDS ORDERED: NORCO 10-325 T1 EACH (10:25)
[2018-01-12] MEDS ORDERED: ACETAMINOPHEN 1000 MG/100 ML IV ONE (14:08)
[2018-01-12] MEDS ORDERED: ROCURONIUM BROMIDE 10 MG/ML 5ML VIAL ONE (14:08)
[2018-01-12] MEDS ORDERED: PROPOFOL IV EMULSION 10 MG/ML 20 ML VIAL ONE (14:08)
[2018-01-12] MEDS ORDERED: SEVOFLURANE INHAL SOLN 250 ML PEN BTL ONE (14:08)
[2018-01-12] MEDS ORDERED: LIDOCAINE HCL 2% LOCAL INJ 5 ML SDV VIAL INJ ONE (14:08)
[2018-01-12] MEDS ORDERED: NALOXONE HCL INJ 0.4 MG/ML AMP IV PRN (14:15)
[2018-01-12] MEDS ORDERED: KETOROLAC TROMETHAMINE 30 MG/ML VIAL IV PRN (14:15)
[2018-01-12] MEDS ORDERED: ACETAMINOPHEN 1000 MG/100 ML IV PRN (14:15)
[2018-01-12] MEDS ORDERED: DIPHENHYDRAMINE HCL INJ 50 MG/ML VIAL IM PRN (14:15)
--- NOTE | 2018-01-12 14:55 | Operative Report ---
DATE OF PROCEDURE: January 12, 2018 PREOPERATIVE DIAGNOSIS: Fecal incontinence, carcinoma of rectum. POSTOPERATIVE DIAGNOSIS: Fecal incontinence, carcinoma of rectum. OPERATION PERFORMED: Creation of transverse end colostomy. SURGEON: Dr. Lindo. LINEN CLERK: None. ANESTHESIA: General. INDICATIONS AND FINDINGS: Patient is a 57-year-old male previous surgery for carcinoma of rectum. He had a colostomy that was reversed but now he has developed problems with fecal incontinence such that he cannot control bowel movements per rectum and so he is having colostomy surgery. There was some stool within the colon, the colon otherwise appeared normal. There is no evidence of recurrent cancer. Splenic flexure to colon was mobilized so that colostomy could be done without tension. TECHNIQUE: After adequate general endotracheal anesthesia patient in supine position, the abdomen was prepped and draped in sterile fashion with Cornelius solution. Through a midline incision, the peritoneal cavity was entered. There were adhesions involving omentum to the abdominal wall which were lysed. Small bowel was pretty much free of adhesions. The transverse colon is identified. There was some adhesions from the colon to the abdominal wall and these were lysed. The left colon was mobilized by dividing peritoneal attachments. The colon was mobilized to the distal descending colon. Splenic flexure of the colon also was mobilized by dividing peritoneal attachments. Once the colon was completely freed a portion of the colon that reached the abdominal wall was identified. This was divided with NUVIA stapler and part of the mesentery was divided with LigaSure device and one vessel was suture ligated with 2-0 silk. The distal colon was marked with 3-0 Prolene sutures. There was some stool in the distal colon and this was milked distally as much as possible. This [place] of skin was removed from left upper quadrant and carried into the subcutaneous tissue. The fascia was opened cruciate fashion down to the peritoneal cavity. The end of colon which was the colon just at the splenic flexure, was brought out through this wound to be matured as an end colostomy. The peritoneal cavity was irrigated with saline, inspected for hemostasis which was seen to be adequate. Midline fascia closed running suture of number 1 PDS. Subcutaneous tissue was irrigate with saline. Skin was closed with ismael. End of the colon at the stoma site was then opened and colostomy matured taking sutures from the skin to the full thickness of colon with interrupted sutures of 3-0 Vicryl. Colostomy appliance was applied. After this was completed and sterile dressing applied, the distal colon was irrigated transrectally using bulb syringe, was irrigated with saline and as much stool as possible was removed through the rectum. The rectum was noted to be short with considerable fibrosis. Patient tolerated procedure well. Estimated blood loss was 75 mL. There were no complications. All counts were correct. Patient was taken to the recovery room satisfactory condition. Job#: [id number] LEV
[2018-01-12] MEDS ORDERED: MIDAZOLAM HCL 2 MG/2 ML VIAL ONE (15:04)
[2018-01-12] MEDS ORDERED: FENTANYL CITRATE/PF 100MCG/2 ML INJ ONE (15:04)
[2018-01-12] MEDS: ONDANSETRON HCL INJ 2 MG/ML VIAL IV PRN (15:17)
[2018-01-12] MEDS: SODIUM CHLORIDE 0.9% 1000ML 1,000 ML IV SCH (15:17)
[2018-01-12 15:21] VITALS: BP 143/70
[2018-01-12 15:48] VITALS: BP 143/70
[2018-01-12] MEDS: CEFOXITIN 2GM/ D5W 50ML 50 ML IV SCH (17:38)
[2018-01-12] MEDS ORDERED: CEFOXITIN 2GM/ D5W 50ML 50 ML IV SCH (18:00)
[2018-01-12] MEDS ORDERED: CEFOXITIN SODIUM 2 G/VIAL IV SCH (18:00)
[2018-01-12 20:00] VITALS: BP 112/75
[2018-01-12 21:45] VITALS: BP 112/75
[2018-01-12] MEDS: HYDROMORPHONE 0.2MG/ML-SOD CHL 30ML PCA SYRINGE IV PRN (22:48)
[2018-01-13] VITALS (7 sets, daily range): BP systolic 107–123; BP diastolic 56–75
[2018-01-13] MEDS: CEFOXITIN 2GM/ D5W 50ML 50 ML IV SCH ×3 (00:12→11:36)
[2018-01-13] MEDS: ONDANSETRON HCL INJ 2 MG/ML VIAL IV PRN (00:53)
[2018-01-13] MEDS: SODIUM CHLORIDE 0.9% 1000ML 1,000 ML IV SCH ×3 (01:09→20:06)
[2018-01-13 06:58] LABS: BASOPHILS % 0.2 % (0.0-1.0); EOSINOPHILS % 0.3 % (0.0-6.0); HEMATOCRIT 36.5 % (38.2-49.6); HEMOGLOBIN 11.7 g/dL (14.0-18.0); LYMPHOCYTES # (AUTO) 1.3 (1.0-3.2); LYMPHOCYTES % 12.4 % (18.0-39.1); MEAN CORPUSCULAR HGB CONC 32.1 g/dL (31-35); MEAN CORPUSCULAR VOLUME 84.3 fL (81-99); MONOCYTES % 9.9 % (4.4-11.3); NEUTROPHILS # (AUTO) 7.8 (2.1-6.9); NEUTROPHILS % 76.8 % (38.7-80.0); PLATELET COUNT 278 x10e3/uL (140-360); RED BLOOD COUNT 4.33 x10e6/uL (4.3-5.7); RED CELL DISTRIBUTION WIDTH 13.5 % (11.7-14.4)
[2018-01-13 07:15] LABS: ANION GAP 13.2 mmol/L (8-16); BLOOD UREA NITROGEN 8 mg/dL (7-26); BUN/CREATININE RATIO 10 (6-25); CALCIUM 9.4 mg/dL (8.4-10.2); CARBON DIOXIDE 26 mmol/L (22-29); CHLORIDE 101 mmol/L (98-107); CREATININE, SERUM 0.84 mg/dL (0.72-1.25); EST GLOMERULAR FILTRATION RATE > 60 ML/MIN (60-); GLUCOSE 107 mg/dL (74-118); POTASSIUM 4.2 mmol/L (3.5-5.1); SODIUM 136 mmol/L (136-145)
[2018-01-13] MEDS: HYDROMORPHONE 0.2MG/ML-SOD CHL 30ML PCA SYRINGE IV PRN ×2 (10:40→21:25)
[2018-01-13] MEDS: ONDANSETRON HCL 4 MG ORAL DISINTEGRATING TAB SL PRN (14:24)
[2018-01-13] MEDS ORDERED: ACETAMINOPHEN 1000 MG/100 ML IV PRN (16:00)
[2018-01-14] VITALS (8 sets, daily range): BP systolic 109–136; BP diastolic 67–72
[2018-01-14] MEDS: SODIUM CHLORIDE 0.9% 1000ML 1,000 ML IV SCH ×2 (06:12→12:47)
[2018-01-14] MEDS: ONDANSETRON HCL 4 MG ORAL DISINTEGRATING TAB SL PRN (11:55)
[2018-01-14] MEDS: HYDROMORPHONE 0.2MG/ML-SOD CHL 30ML PCA SYRINGE IV PRN (20:11)
[2018-01-15] VITALS (8 sets, daily range): BP systolic 111–142; BP diastolic 60–70
[2018-01-15] MEDS: HYDROMORPHONE 0.2MG/ML-SOD CHL 30ML PCA SYRINGE IV PRN (09:25)
[2018-01-15] MEDS: ONDANSETRON HCL 4 MG ORAL DISINTEGRATING TAB SL PRN (18:22)
[2018-01-15] MEDS: HYDROCODONE/APAP 10MG-325MG TAB PO PRN (21:13)
[2018-01-16] VITALS: BP 109/73
[2018-01-16 04:00] VITALS: BP 136/77
[2018-01-16] MEDS: HYDROCODONE/APAP 10MG-325MG TAB PO PRN ×2 (04:29→07:35)
--- NOTE | 2018-01-16 06:51 | Discharge Summary ---
ADMISSION DIAGNOSES 1. Severe proctitis. 2. Fecal incontinence. 3. Carcinoma of the rectum. DISCHARGE DIAGNOSES 1. Severe proctitis. 2. Fecal incontinence. 3. Carcinoma of the rectum. PRINCIPAL PROCEDURES 1. Exploratory laparotomy. 2. Creation of transverse end-colostomy. HISTORY OF PRESENT ILLNESS: Patient is a 57-year-old male who has a history of carcinoma of the rectum. He underwent low anterior resection and colostomy, and then subsequently reversal. He also had prior resection, chemotherapy and radiation therapy. He developed severe proctitis, which was intractable with fecal incontinence such that it could not be managed without colostomy. Colonoscopy findings suggestive of ischemia. HOSPITAL COURSE: The patient was admitted to the hospital and underwent surgery the same day as admission. He had exploratory laparotomy with creation of transverse end-colostomy. Postoperatively, the patient was stable. Colostomy was functioning. Was started on a diet and tolerated without problems. Diet was advanced. The patient was passing flatus. He did have some stool passage from the wound. His wound remained clean, and he was discharged home on 4th postop day. At the time of discharge, he was afebrile. Colostomy was pink and viable. Wound was clean. Discharge medications were [place]. He will follow up with Dr. Lindo in approximately 1 week after discharge. Was sent home in satisfactory condition on a regular diet. ASHKAN LINDO MD Job#: [id number] [place]
[2018-01-16 08:08] VITALS: BP 118/66
== END 2018-01-16 08:15 | disposition home or self-care (01) | DRG 331 ==
LOC: OR 10:05 → MED/SURG 14:58
PROVIDERS: ADMIT Surgery; ATTEND Surgery
PROC: 0DNL0ZZ Release Transverse Colon, Open Approach (ICD-10-PCS; 2018-01-12)
PROC: 0D1L074 Bypass Transverse Colon to Cutaneous with Autologous Tissue Substitute, Open Approach (ICD-10-PCS; principal; 2018-01-12 12:30)
DX: K62.89 Other specified diseases of anus and rectum (principal); R15.9 Full incontinence of feces; Z85.048 Personal history of other malignant neoplasm of rectum, rectosigmoid junction, and anus; F41.9 Anxiety disorder, unspecified; F32.9 Major depressive disorder, single episode, unspecified; Z90.49 Acquired absence of other specified parts of digestive tract; I10 Essential (primary) hypertension
CPT/HCPCS: 36415; 80048; 85025; 86850; 86900; 96361; J0694; J2001; J2250; J2405; J7030

== ENCOUNTER → 2018-04-11 | Day surgery (SDC) | payer BC ==
[2018-04-09 11:24] LABS: BASOPHILS # (AUTO) 0.1 (0.0-0.1); BASOPHILS % 0.9 % (0.0-1.0); EOSINOPHILS # (AUTO) 0.3 (0.0-0.4); EOSINOPHILS % 4.4 % (0.0-6.0); HEMATOCRIT 41.8 % (38.2-49.6); HEMOGLOBIN 13.8 g/dL (14.0-18.0); LYMPHOCYTES # (AUTO) 1.7 (1.0-3.2); LYMPHOCYTES % 24.7 % (18.0-39.1); MEAN CORPUSCULAR HEMOGLOBIN 27.9 pg (28-32); MEAN CORPUSCULAR VOLUME 84.6 fL (81-99); MONOCYTES # (AUTO) 0.7 (0.2-0.8); MONOCYTES % 9.9 % (4.4-11.3); NEUTROPHILS % 59.7 % (38.7-80.0); PLATELET COUNT 215 x10e3/uL (140-360); RED BLOOD COUNT 4.94 x10e6/uL (4.3-5.7); RED CELL DISTRIBUTION WIDTH 14.7 % (11.7-14.4)
[2018-04-09 11:43] LABS: ANION GAP 14.7 mmol/L (8-16); BLOOD UREA NITROGEN 12 mg/dL (7-26); BUN/CREATININE RATIO 15 (6-25); CALCIUM 9.7 mg/dL (8.4-10.2); CARBON DIOXIDE 26 mmol/L (22-29); CHLORIDE 103 mmol/L (98-107); EST GLOMERULAR FILTRATION RATE > 60 ML/MIN (60-); GLUCOSE 103 mg/dL (74-118); POTASSIUM 4.7 mmol/L (3.5-5.1); SODIUM 139 mmol/L (136-145)
[~2018-04-11] MED LIST changes: +BACITRACIN 50,000 UNIT VIAL ONE; +BUPIVACAINE HCL 0.5% INJ 30 ML VIAL INJ ONE; +CEFAZOLIN SOD 2 GM/D5W 50ML 50 ML IV ONE; +DEXAMETHASONE SOD PHOS INJ 4 MG/ML VIAL ONE; +FENTANYL CITRATE/PF 100MCG/2 ML INJ ONE; +GLYCOPYRROLATE INJ 1MG/ 5 ML SYR ONE; +KETOROLAC TROMETHAMINE 30 MG/ML VIAL ONE; +LIDOCAINE HCL 2% LOCAL INJ 5 ML SDV VIAL INJ ONE; +MIDAZOLAM HCL 2 MG/2 ML VIAL ONE; +MORPHINE SULFATE 2 MG/ML SYR ONE; +NEOSTIGMINE 5 MG/5ML SYR ONE; +ONDANSETRON HCL INJ 2 MG/ML VIAL ONE; +PROPOFOL IV EMULSION 10 MG/ML 20 ML VIAL ONE; +ROCURONIUM BROMIDE 10 MG/ML 5ML VIAL ONE; +SEVOFLURANE INHAL SOLN 250 ML PEN BTL ONE; +SUCCINYLCHOLINE 200 MG/10 ML SYR ONE
--- NOTE | 2018-04-11 12:15 | Operative Report ---
DATE OF PROCEDURE: April 11, 2018 PREOPERATIVE DIAGNOSIS: Umbilical hernia. POSTOPERATIVE DIAGNOSIS: Umbilical hernia. PROCEDURE: Repair of umbilical hernia with mesh. ADOLESCENT COORDINATOR: None. ANESTHESIA: General. INDICATIONS AND FINDINGS: Patient is a 57-year-old male with multiple previous surgeries who had a complaint of bulge in his umbilicus that was causing pain. At surgery, there was an umbilical hernia with fascial defect that was about 3.5 cm in diameter containing omentum. TECHNIQUE: After adequate general endotracheal anesthesia, with the patient in supine position, the abdomen was prepped and draped in sterile fashion with Blackwood solution. Transverse incision was made inferior to the umbilicus, carried down through subcutaneous tissue. The umbilicus was dissected free from the herniated mass and dissected free down to the fascia and freed from the fascia throughout circumference of the hernia defect which was about 3.5 cm in diameter. Once the fascia was completely delineated, a Marlex mesh was fashioned in appropriate size, soaked in antibiotic solution, was placed beneath the fascia and sutured to the undersurface of the fascia with running horizontal mattress suture of 0 Prolene. Sutures taken about 3 cm from the edge of the defect. Once the mesh was in place, the wound was inspected for hemostasis, which was seen to be adequate. Wound was irrigated with antibiotic solution and then infiltrated with 0.5% Marcaine. The umbilicus was sutured to the fascia using 3-0 Vicryl. Subcutaneous tissue was closed with running suture of 2-0 Vicryl. Skin was closed with ismael. Sterile dressing was applied. Patient tolerated the procedure well. Estimated blood loss was 5 mL. There were no complications. All counts were correct. Patient was taken to the recovery room in satisfactory condition. Job#: [id number] MARCELA
== END | disposition home or self-care (01) ==
LOC: OR 08:40
PROVIDERS: ATTEND Surgery
DX: K42.9 Umbilical hernia without obstruction or gangrene (principal); I10 Essential (primary) hypertension; I49.3 Ventricular premature depolarization; F17.210 Nicotine dependence, cigarettes, uncomplicated; Z88.6 Allergy status to analgesic agent; Z01.810 Encounter for preprocedural cardiovascular examination; Z01.812 Encounter for preprocedural laboratory examination; Z68.41 Body mass index [BMI] 40.0-44.9, adult; Z93.3 Colostomy status; Z85.048 Personal history of other malignant neoplasm of rectum, rectosigmoid junction, and anus
CPT/HCPCS: 36415; 49585; 80048; 85025; 93005; C1781; J1100; J1885; J2001; J2250; J2270; J2405; J3490

== ENCOUNTER 2018-07-31 07:09 | Inpatient (IN) | payer BC ==
[2018-07-30 12:39] LABS: BASOPHILS # (AUTO) 0.1 (0.0-0.1); BASOPHILS % 0.5 % (0.0-1.0); EOSINOPHILS # (AUTO) 0.3 (0.0-0.4); EOSINOPHILS % 2.9 % (0.0-6.0); HEMATOCRIT 42.5 % (38.2-49.6); HEMOGLOBIN 13.6 g/dL (14.0-18.0); LYMPHOCYTES # (AUTO) 2.2 (1.0-3.2); LYMPHOCYTES % 19.7 % (18.0-39.1); MEAN CORPUSCULAR HEMOGLOBIN 27.2 pg (28-32); MONOCYTES # (AUTO) 0.8 (0.2-0.8); MONOCYTES % 7.6 % (4.4-11.3); NEUTROPHILS # (AUTO) 7.5 (2.1-6.9); NEUTROPHILS % 68.6 % (38.7-80.0); PLATELET COUNT 308 x10e3/uL (140-360); RED CELL DISTRIBUTION WIDTH 13.6 % (11.7-14.4)
[2018-07-30 12:55] LABS: ANION GAP 13.1 mmol/L (8-16); BLOOD UREA NITROGEN 9 mg/dL (7-26); BUN/CREATININE RATIO 9 (6-25); CALCIUM 9.8 mg/dL (8.4-10.2); CARBON DIOXIDE 26 mmol/L (22-29); CHLORIDE 103 mmol/L (98-107); CREATININE, SERUM 0.96 mg/dL (0.72-1.25); EST GLOMERULAR FILTRATION RATE > 60 ML/MIN (60-); GLUCOSE 94 mg/dL (74-118); POTASSIUM 4.1 mmol/L (3.5-5.1); SODIUM 138 mmol/L (136-145)
[~2018-07-31] VITALS: Ht 190.5 cm; Wt 167.2 kg
[~2018-07-31 07:09] MED LIST changes: -BACITRACIN 50,000 UNIT VIAL ONE; -BUPIVACAINE HCL 0.5% INJ 30 ML VIAL INJ ONE; -CEFAZOLIN SOD 2 GM/D5W 50ML 50 ML IV ONE; -DEXAMETHASONE SOD PHOS INJ 4 MG/ML VIAL ONE; -FENTANYL CITRATE/PF 100MCG/2 ML INJ ONE; -GLYCOPYRROLATE INJ 1MG/ 5 ML SYR ONE; -KETOROLAC TROMETHAMINE 30 MG/ML VIAL ONE; -LIDOCAINE HCL 2% LOCAL INJ 5 ML SDV VIAL INJ ONE; -MIDAZOLAM HCL 2 MG/2 ML VIAL ONE; -MORPHINE SULFATE 2 MG/ML SYR ONE; -NEOSTIGMINE 5 MG/5ML SYR ONE; -ONDANSETRON HCL INJ 2 MG/ML VIAL ONE; -PROPOFOL IV EMULSION 10 MG/ML 20 ML VIAL ONE; -ROCURONIUM BROMIDE 10 MG/ML 5ML VIAL ONE; -SEVOFLURANE INHAL SOLN 250 ML PEN BTL ONE; -SUCCINYLCHOLINE 200 MG/10 ML SYR ONE; +WELLBUTRIN SR150 MG PO
[2018-07-31] MEDS ORDERED: CEFOXITIN SOD 1 GM VIAL ONE (07:29)
--- NOTE | 2018-07-31 07:50 | NUR ---
SPIRITUAL CARE - Pre-Surgery Assessment: Pt in bed. Pt's at bedside. Pt reported supportive attention from family and friends. Intervention: I provided pastoral presence, hospitality, sympathetic listening, and prayer. I acquainted pt with availability of delinquency prevention social worker while hospitalized. Outcome: Pt expressed appreciation for visit. No need for follow up indicated at this time. NANCY HURT [employer] Worker Spiritual Care Department O: [phone] Pager: [phone] ([phone] calling from)
[2018-07-31] MEDS ORDERED: BACITRACIN 50,000 UNIT VIAL ONE (08:58)
[2018-07-31] MEDS ORDERED: ACETAMINOPHEN 1000 MG/100 ML IV PRN (13:15)
[2018-07-31] MEDS ORDERED: KETOROLAC TROMETHAMINE 30 MG/ML VIAL IV PRN (13:15)
[2018-07-31] MEDS ORDERED: NALOXONE HCL INJ 0.4 MG/ML AMP IV PRN (13:15)
[2018-07-31] MEDS ORDERED: DIPHENHYDRAMINE HCL INJ 50 MG/ML VIAL IM PRN (13:15)
[2018-07-31] MEDS ORDERED: HYDROMORPHONE 2MG/ML 2 MG/ML ML ONE (13:52)
--- NOTE | 2018-07-31 14:52 | Operative Report ---
DATE OF PROCEDURE: July 31, 2018 PREOPERATIVE DIAGNOSIS: Recurrent carcinoma of the rectum. 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 PROCEDURE: Exploratory laparotomy, left colon resection, abdominoperineal resection of the rectum, and partial omentectomy. CERNER ANALYST: None. ANESTHESIA: General endotracheal. INDICATIONS AND FINDINGS: The patient is a 58-year-old male with previous low anterior resection of the colon for cancer. He had a complicated postop course with poor healing of the rectal stump and now has developed recurrent cancer. At surgery, there were considerable inflammation and friability of the rectum in the area of the previous anastomosis. There was some very friable tumor in the area which was removed. There was a mass in the omentum. This portion of the omentum was removed, and frozen section did not reveal any cancer in the omentum. There was no evidence of cancer elsewhere in the abdomen. There was no mass in the liver. There were some adhesions involving the omentum and small bowel. There were considerable fibrosis, scarring and inflammation in the pelvis at the site of the previous anastomosis where there was an ulcerated area extending into the sacrum with friable tumor. TECHNIQUE: After adequate general endotracheal anesthesia, with the patient in the supine position with the legs in low stirrups, the abdomen was prepped and draped in a sterile fashion with ChloraPrep solution. The perineum was prepped and draped in sterile fashion with Betadine solution. Going through a midline incision wound, incision was made and the peritoneal cavity was entered. There were adhesions involving omentum which were lysed. Adhesions involving the small bowel also were lysed, freeing the small bowel completely and omentum completely. In the omentum just above the pelvis, there were some hard masses palpable, which appeared partially cystic. This portion of the omentum was excised using the LigaSure device and submitted for frozen section, which did not reveal any cancer, only some fat necrosis. Once all the adhesions involving the small bowel were lysed, the left colon was identified. This was followed proximally. It was decided that all the colon distal to the existing colostomy would be removed. The end of the colon was identified, and this colon was mobilized all the way down to the pelvis. The ureters were identified and preserved. With the colon free all the way down in the pelvis, there was found to be considerable fibrosis in the mid pelvis. No definite mass was palpable, though it was difficult to distinguish fibrosis from tumor. The mesentery of the colon was divided with the LigaSure device. There were no enlarged lymph nodes noted. No mass in the abdomen besides the masses found in the omentum. There was no mass in the liver. The anterior dissection was carried down through the mid pelvis. Once this was completed, the perineal approach was started. The anus was sutured closed using 2-0 silk. An elliptical incision was made encompassing the anus and carried down into the subcutaneous tissue and followed into the pelvis. As the rectum was freed from the surrounding tissues, an area of fibrosis was encountered. It was hard to tell what was fibrosis and what was tumor. This was dissected free from the sacrum, also anteriorly dissected off the prostate. The rectum was noted be extremely friable in this area, basically falling apart, as it was dissected free. There was an ulcerated area that extended into the sacrum. As the rectum was freed, all the fibrosis and tissue along the sacrum were removed almost down to periosteum and bone. Laterally the rectum with soft tissue was also removed as much as possible. This was done until the area of the fibrosis in the upper part of the pelvis where a previous anastomosis as made was encountered, and the colon and rectum were completely removed. At the area of the previous anastomosis, the colon was very friable and fibrotic and fell apart as it was dissected. All remnants of the rectum, however, were removed. All gross evidence of tumor was removed. Hemostasis was seen to be adequate. The vessels were cauterized as they were encountered or divided with LigaSure device. Once the rectum and left colon were completely removed, the wound was inspected for hemostasis, which was seen to be adequate. It was then irrigated with saline. The perineum was closed with 2-0 Vicryl to the subcutaneous tissue and muscle. The skin was closed with a running subcuticular suture of 4-0 Vicryl, and Dermabond was applied to the wound. Attention was then turned to the abdomen. The abdomen was irrigated with saline and inspected for hemostasis, which was seen to be adequate. All adhesions were lysed. The small bowel all appeared viable. Some omentum was placed into the pelvis. A 10-mm flat Baltazar-De La Rosa drain was placed in the pelvis through a separate stab wound incision. Mesentery of the peritoneum was closed over the pelvis to try to keep the small bowel from going into the pelvis. This was done with 2-0 Vicryl. The patient already had an existing colostomy, which was from the distal transverse colostomy. The midline fascia was then closed with a running suture of #1 PDS. Subcutaneous tissues were irrigated with saline. Skin was closed with ismael. Sterile dressing was applied. Patient tolerated the procedure well. Estimated blood loss was 300 mL. There were no complications. All counts were correct. Patient was taken to the recovery room in satisfactory condition. Job#: [id number]
[2018-07-31] MEDS ORDERED: MORPHINE SULFATE INJ 10 MG/ML ONE (17:32)
[2018-07-31] MEDS ORDERED: FENTANYL CITRATE/PF 100MCG/2 ML INJ ONE (17:32)
[2018-07-31] MEDS ORDERED: MIDAZOLAM HCL 2 MG/2 ML VIAL ONE (17:32)
[2018-07-31] MEDS ORDERED: CEFOXITIN SODIUM 2 G/VIAL IV SCH (18:00)
[2018-07-31] MEDS ORDERED: CEFOXITIN 2GM/ D5W 50ML 50 ML IV SCH (18:00)
--- NOTE | 2018-07-31 18:21 | NUR ---
Received report from November, in recovery. Patient is s/p perineal and colon resection. He is coming to room 208 Addendum: 07/31/18 at 1935 by Hanane Mosher RN room 108
--- NOTE | 2018-07-31 18:40 | NUR ---
Patient arrived to the floor in hospital bed from recovery. He is awake alert and oriented x3, he has a valencia catheter, CHANCE drain and colostomy present. He also has a STONECUTTER APPRENTICE HAND pump that was checked with recovery nurse. Oriented patient to the room and how to use the call light, he verbalized understanding. at bedside, call light in reach
--- NOTE | 2018-07-31 19:05 | NUR ---
Patient visited in room during nursing rounds. Patient alert and oriented x3. No distress or discomfort noted. S/P Abdominal Resection and Colon Resection. CHANCE drain on RLQ abd and midline abd incision covered with surgical dressing clean and dry. On BACKUP SAWYER Dilaudid per MD order. IVF running (LR @ 150ml/hr). Polanco in place. Call alejandre within reach. Will monitor patient closely.
[2018-07-31] MEDS ORDERED: PROPOFOL IV EMULSION 10 MG/ML 20 ML VIAL ONE (19:11)
[2018-07-31] MEDS ORDERED: LIDOCAINE HCL 2% LOCAL INJ 5 ML SDV VIAL INJ ONE (19:11)
[2018-07-31] MEDS ORDERED: NEOSTIGMINE 5 MG/5ML SYR ONE (19:11)
[2018-07-31] MEDS ORDERED: SEVOFLURANE INHAL SOLN 250 ML PEN BTL ONE (19:11)
[2018-07-31] MEDS ORDERED: ATROPINE SULFATE 1 MG/ML VIAL ONE (19:11)
[2018-07-31] MEDS ORDERED: DEXAMETHASONE SOD PHOS INJ 4 MG/ML VIAL ONE (19:11)
[2018-07-31] MEDS ORDERED: ONDANSETRON HCL INJ 2 MG/ML VIAL ONE (19:11)
[2018-07-31] MEDS ORDERED: EPHEDRINE SULFATE INJ 50 MG/10 ML SYR ONE (19:11)
[2018-07-31] MEDS ORDERED: ROCURONIUM BROMIDE 10 MG/ML 5ML VIAL ONE (19:11)
[2018-07-31] MEDS ORDERED: KETOROLAC TROMETHAMINE 30 MG/ML VIAL ONE (19:11)
[2018-07-31] MEDS ORDERED: ACETAMINOPHEN 1000 MG/100 ML IV ONE (19:11)
[2018-07-31] MEDS ORDERED: SUCCINYLCHOLINE 200 MG/10 ML SYR ONE (19:11)
[2018-07-31] MEDS: CEFOXITIN SODIUM 2 G in SODIUM CHLORIDE 0.9% 50ML 50 ML IV SCH ×2 (19:27→23:34)
[2018-07-31 20:00] VITALS: BP 118/67
[2018-07-31] MEDS: LACTATED RINGER'S 1,000 ML IV SCH (21:50)
[2018-07-31 22:00] VITALS: BP 118/67
--- NOTE | 2018-07-31 22:40 | NUR ---
Patient sheets changed. Draw sheet noted with dried old blood. Rectal area checked and appeared tightly sutured and had no sign of active bleeding. Will monitor patient.
--- NOTE | 2018-07-31 23:15 | NUR ---
Dr. Moss came and visited patient in room. MD interviewed patient and aware of patient condition. Informed Dr. Moss of his heart rate (per telemetry) sometimes gets elevated to 130s. Informed also of dried blood noted on draw sheets from surgery done rectum. MD ordered Metoprolol prn and adviced to monitor patient.
[2018-07-31] MEDS ORDERED: METOPROLOL TARTRATE INJ 1 MG/ML VIAL IV PRN (23:30)
[2018-07-31] MEDS: HYDROMORPHONE 0.2MG/ML-SOD CHL 30ML PCA SYRINGE IV PRN (23:34)
[2018-08-01] VITALS (8 sets, daily range): BP systolic 94–125; BP diastolic 53–85
[2018-08-01] MEDS: LACTATED RINGER'S 1,000 ML IV SCH ×4 (05:17→21:55)
[2018-08-01] MEDS: CEFOXITIN SODIUM 2 G in SODIUM CHLORIDE 0.9% 50ML 50 ML IV SCH ×4 (06:00→23:53)
[2018-08-01 06:13] LABS: BASOPHILS % 0.3 % (0.0-1.0); EOSINOPHILS % 0.1 % (0.0-6.0); HEMATOCRIT 35.2 % (38.2-49.6); HEMOGLOBIN 11.2 g/dL (14.0-18.0); LYMPHOCYTES # (AUTO) 0.9 (1.0-3.2); LYMPHOCYTES % 6.5 % (18.0-39.1); MEAN CORPUSCULAR HEMOGLOBIN 27.3 pg (28-32); MEAN CORPUSCULAR HGB CONC 31.8 g/dL (31-35); MEAN CORPUSCULAR VOLUME 85.9 fL (81-99); MONOCYTES # (AUTO) 1.2 (0.2-0.8); MONOCYTES % 8.5 % (4.4-11.3); NEUTROPHILS # (AUTO) 12.2 (2.1-6.9); PLATELET COUNT 262 x10e3/uL (140-360); RED CELL DISTRIBUTION WIDTH 14.3 % (11.7-14.4)
[2018-08-01 06:56] LABS: ANION GAP 12.3 mmol/L (8-16); BLOOD UREA NITROGEN 14 mg/dL (7-26); BUN/CREATININE RATIO 13 (6-25); CALCIUM 8.7 mg/dL (8.4-10.2); CARBON DIOXIDE 23 mmol/L (22-29); CHLORIDE 107 mmol/L (98-107); CREATININE, SERUM 1.06 mg/dL (0.72-1.25); EST GLOMERULAR FILTRATION RATE > 60 ML/MIN (60-); GLUCOSE 124 mg/dL (74-118); POTASSIUM 4.3 mmol/L (3.5-5.1); SODIUM 138 mmol/L (136-145)
[2018-08-01] MEDS: BUPROPION HCL SR 150 MG TAB PO SCH (08:48)
[2018-08-01] MEDS: HYDROMORPHONE 0.2MG/ML-SOD CHL 30ML PCA SYRINGE IV PRN ×2 (08:49→23:45)
--- NOTE | 2018-08-01 09:14 | Consultation ---
DATE OF CONSULTATION: July 31, 2018 PULMONARY MEDICINE CONSULT REFERRING PHYSICIAN: Dr. Lindo REASON FOR REFERRAL: Postoperative state, medical/critical postoperative management. HISTORY: Mr. Mathur is a pleasant 58-year-old gentleman with postoperative state. Patient well known to me from previous clinical encounters. Patient was having known history of colon cancer where he had a lower anterior resection. There was some poor healing of the rectal stump and he had to receive additional surgery. The patient, however, was recently doing well and underwent surveillance colonoscopy by Dr. Patel, which found some new neoplastic growth. Due to this, it was recommended that he go back for exploratory laparotomy and other associated procedures. On July 31, 2018, patient underwent exploratory laparotomy, left colonic resection, abdominoperineal resection of the rectum, and partial omentectomy. Patient with estimated blood loss of 300 mL. He is spontaneously breathing after surgery. PAST MEDICAL HISTORY: Hypertension; rectal cancer, status post chemotherapy, radiation therapy and lower anterior resection of rectal mass; port placement. MEDICATIONS: Medication list reviewed per electronic record. Of note, he is getting his prophylactic antibiotics as well as WIRE BRUSH OPERATOR pump right now. He is also on ketorolac p.r.n. dosing. ALLERGIES: NO KNOWN DRUG ALLERGIES. SOCIAL HISTORY: No drinking, no drugs. Patient smoked since age 13 to age 58, right now active. He formerly smoked 1 pack a day, now he is down to 4 cigarettes per day. 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 FAMILY HISTORY: Noncontributory to this syndrome. REVIEW OF SYSTEMS: GENERAL: No malaise. ENT: No dry mouth. ENDOCRINE: No thyroid disease. IMMUNOLOGIC: No asthma. PULMONARY: No hemoptysis. CARDIAC: No heart attacks. GI: No chronic diarrhea. : No blood in urine. NEUROLOGIC: No seizures. DERMATOLOGIC: No rash. OBJECTIVE: VITAL SIGNS: Afebrile, vital signs noted per electronic record. GENERAL: No distress now, in bed, slightly pale with pain. HEENT: Normocephalic, atraumatic. NECK: Supple. Throat midline. LUNGS: Bilateral air entry, few rhonchi, rare. CARDIOVASCULAR: S1, S2. No murmurs, rubs, or gallops. ABDOMEN: Soft, nontender. EXTREMITIES: No clubbing, no cyanosis, there is no edema right now significant. INTEGUMENT: No rash, no purpura. His postoperative areas are covered and therefore limited evaluation. His rectum has pad on the bottom. His ostomy . He has a CHANCE indwelling at right lower quadrant and he has some midline incision that is not visible, but it is instead covered. LABS: 9 BUN, 0.96 creatinine. 4.1 potassium. 11 white count. IMPRESSION AND PLAN: 1. Hypertension. 2. History of rectal cancer, status post chemotherapy, radiation therapy, lower pelvic perineal resection. 3. 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 4. Postoperative state, status post exploratory laparotomy, left colon resection, abdominoperineal resection of the rectum, partial omentectomy. 5. Postoperative pain. At this time, will continue monitoring blood pressure, which is controlled so far. Heart rate is intermittently high. Ensure adequate fluids and he is on lactated Ringer's at 150 mL per hour, which is reasonable to continue. He may or may not need more fluid. We have ordered metoprolol for high heart rate. Continue diet and local surgical care per the surgeon, Dr. Lindo. Follow up final pathology here. Smoking cessation is highly recommended to enhance patient's immune system and hopefully defer any recurrence of any cancer. Thank you very much Dr. Lindo for this consult. Please call for questions. Job#: [id number]
--- NOTE | 2018-08-01 11:10 | NUR ---
ASSESSMENT: Spiritual concern Pt adjusting to life after surgery. Pt states, "I have to get used to my new normal." Pt's at bedside. Pt complimentary of staff. Intervention: Provided unhurried pastoral presence. Facilitated illness review and storytelling. Outcome: Pt & expressed appreciation for visit. Will continue to follow. NANCY HURT Icebox Worker Spiritual Care Department O: [phone] Pager: [phone] ([phone] number calling from)
--- NOTE | 2018-08-01 11:54 | NUR ---
SPOKE WITH MD VARGAS REGARDING PT ELEVATED TEMP, AND ABNORMAL VS IN THE MORNING. ASKED IF PT NEEDED BERG TODAY. STATES PT IS TO KEEP BERG IN FOR TODAY. NOTIFIED MD OVER ELEVATED WBC COUNT. NO ORDERS RECEIVED AT THIS TIME
[2018-08-01] MEDS: VANCOMYCIN 1GM/NS 250 ML 250 ML IV SCH (13:05)
--- NOTE | 2018-08-01 14:02 | Progress Note ---
DATE: August 01, 2018 PULMONARY MEDICINE PROGRESS NOTE SUBJECTIVE: Mr. Mathur was seen and examined at bedside. He is taking his ice chips. No flatus. No bowel movements as yet. He is started on clear-liquid diet. No excess nausea. He did have some fevers overnight. REVIEW OF SYSTEMS: No headaches, no GI bleed significant. OBJECTIVE VITAL SIGNS: The patient is febrile with T-max 101.3. Vital signs reviewed per electronic record. GENERALLY: No acute distress, alert in bed. HEENT: Normocephalic, atraumatic. NECK: Supple. Throat midline. LUNGS: Bilateral air entry, limited but clear. CARDIOVASCULAR: S1 and S2. No murmurs, rubs or gallops. ABDOMINAL: Soft, nontender. EXTREMITIES: No clubbing, no cyanosis. There is no edema. INTEGUMENT: No rash. The postoperative incision sites and stoma are still present. No changes to the postoperative sites. LABS: Potassium 4.3, BUN 14, creatinine 1.1, bicarbonate 23. White count 15, hematocrit 35, platelets 262. IMPRESSION AND PLAN 1. Recurrent rectal carcinoma. 2. Postoperative state, status post exploratory laparotomy and resection of left colon and associated omental mass. 3. Obesity. 4. Hypertension. Follow up the fever curve now. Vancomycin has been ordered and patient will need trough likely by tomorrow. Patient will be continued on IV fluids and he is having a good amount of urine output so far. Patient will have cultures followed and microbiology to see the sensitivity of this enterococcal organism that is growing so far in the wound culture. Patient will be escalated on his diet as per surgeon and now he is on clear-liquid diet. Will follow up for good bowel function. Job#: [id number] EV
--- NOTE | 2018-08-01 15:25 | NUR ---
CASE MANAGEMENT INITIAL ASSESSMENT Hydrography Teacher to bedside to discuss plan of care with patient/family. CM/SW role and care transitions discussed. Anticipated discharge plan discussed along with duration of care. CM/SW discussed patients right to make decisions in care. CM/SW work hours given. Patient lives: IN OWN HOUSE WITH KHOA Admit/Transfer: FROM HOME POA/Emergency contact: [facility] [phone] Current/Previous Home Health: NONE PCP/Follow-up Care: Veda TORREZ Current/Previous DME:NONE Other Services: NONE Employment Status: UNEMPLOYED Areas of Concerns: WAS ASKING INFORMATION ABOUT DISABILITY-GAVE RESOURCES FOR HOUSEHOLD ASSISTANT TO ASSIST WITH FILING WITH DISABILITY AND RESOURCES WITHIN THE COMMUNITY Referral Needs: NONE Education Needs: NONE IMM/WILSON given and signed (if applicable): Goal for discharge: RETURN HOME INDEPENDENTLY CM/SW left business card at the bedside with contact information. Name and number was also written on the patients whiteboard. Patient verbalized understanding of discussion. CM will follow-up with ongoing discharge and transition of care needs.
[2018-08-01] MEDS: ONDANSETRON HCL INJ 2 MG/ML VIAL IV PRN ×2 (16:22→23:44)
[2018-08-02] VITALS (7 sets, daily range): BP systolic 101–128; BP diastolic 62–89
--- NOTE | 2018-08-02 00:15 | NUR ---
ASSESSMENT DONE.NO RESP.DISTRESS.V/S STABLE.BERG CARE DONE.INCISION SITE IS DRY AND INTACT.BED LOCKED AND IN LOWEST POSITION.PHONE AND CALL LIGHT WITHIN REACH.INSTRUCTED TO CALL FOR ASSISTANCE NEEDED.FREQUENT ROUNDING.
[2018-08-02] MEDS: VANCOMYCIN 1GM/NS 250 ML 250 ML IV SCH ×2 (00:30→13:38)
[2018-08-02] MEDS: CEFOXITIN SODIUM 2 G in SODIUM CHLORIDE 0.9% 50ML 50 ML IV SCH ×4 (05:26→23:30)
[2018-08-02] MEDS: LACTATED RINGER'S 1,000 ML IV SCH ×2 (05:26→22:34)
[2018-08-02 06:00] LABS: HEMATOCRIT 32.6 % (38.2-49.6); HEMOGLOBIN 10.2 g/dL (14.0-18.0); MEAN CORPUSCULAR HEMOGLOBIN 27.6 pg (28-32); MEAN CORPUSCULAR HGB CONC 31.3 g/dL (31-35); MEAN CORPUSCULAR VOLUME 88.3 fL (81-99); PLATELET COUNT 231 x10e3/uL (140-360); RED BLOOD COUNT 3.69 x10e6/uL (4.3-5.7); RED CELL DISTRIBUTION WIDTH 14.2 % (11.7-14.4)
[2018-08-02 06:22] LABS: ANION GAP 11.2 mmol/L (8-16); BLOOD UREA NITROGEN 10 mg/dL (7-26); BUN/CREATININE RATIO 12 (6-25); CALCIUM 8.9 mg/dL (8.4-10.2); CARBON DIOXIDE 27 mmol/L (22-29); CHLORIDE 102 mmol/L (98-107); CREATININE, SERUM 0.84 mg/dL (0.72-1.25); EST GLOMERULAR FILTRATION RATE > 60 ML/MIN (60-); GLUCOSE 114 mg/dL (74-118); POTASSIUM 4.2 mmol/L (3.5-5.1); SODIUM 136 mmol/L (136-145)
--- NOTE | 2018-08-02 06:50 | NUR ---
REPORT GIVEN TO THE ONCOMING RN.WALKING ROUNDS DONE.STABLE CONDITION.
--- NOTE | 2018-08-02 07:33 | NUR ---
dc valencia at this time 350 cc emptied from bag. instructed pt to call when voiding after valencia removal
[2018-08-02] MEDS: ACETAMINOPHEN 1000 MG/100 ML IV PRN ×2 (07:34→22:00)
--- NOTE | 2018-08-02 07:34 | NUR ---
tylenol given for temp of 100.4
[2018-08-02] MEDS: BUPROPION HCL SR 150 MG TAB PO SCH (08:42)
--- NOTE | 2018-08-02 09:00 | NUR ---
PAGED MD VARGAS FOR ORDERS ON PAIN MED. AWAITING FOR CALL BACK
--- NOTE | 2018-08-02 10:20 | NUR ---
ASSESSMENT: Spiritual concern Pt disappointed with strained relationship with some of his family. Pt's supportive at bedside. Intervention: Facilitated conversation about processing emotions. Provided prayer. Outcome: Will continue to follow. NANCY HURT Standpipe Tender Spiritual Care Department O: [phone] Pager: [phone] ([phone] number calling from)
--- NOTE | 2018-08-02 10:24 | NUR ---
REPAGED MD VARGAS FOR ORDERS ON PAIN MEDICATION .AWAITING FOR CALL BACK
[2018-08-02] MEDS: ONDANSETRON HCL INJ 2 MG/ML VIAL IV PRN ×2 (10:53→20:56)
[2018-08-02] MEDS ORDERED: HYDROMORPHONE 1MG/1ML INJ IV PRN (11:45)
[2018-08-02] MEDS: HYDROMORPHONE 2MG/ML 2 MG/ML ML IV PRN ×3 (12:30→20:57)
--- NOTE | 2018-08-02 12:55 | Progress Note ---
DATE: August 02, 2018 PULMONARY MEDICINE PROGRESS NOTE SUBJECTIVE: Mr. Mathur was seen and examined at bedside. He continues to have steady progress. He is having flatus. No bowel movement. Patient still with some pain, and he was changed from the ETHANOL OPERATOR. Polanco is out, but he has yet to void. REVIEW OF SYSTEMS: No headaches, no rash. OBJECTIVE VITALS: Afebrile. Vital signs noted per electronic record. GENERAL: No acute distress, alert and calm in bed. HEENT: Normocephalic, atraumatic. NECK: Supple. Throat midline. LUNGS: Bilateral air entry, a few rare rhonchi, mostly decreased breath sounds. CARDIOVASCULAR: S1 and S2. No murmurs, rubs or gallops. ABDOMINAL: Soft, nontender. EXTREMITIES: No clubbing, no cyanosis. There is trace edema. INTEGUMENT: No rash. No purpura. LABS: 16 white count, 33 hematocrit, 231 platelets, 4.2 potassium, 10 BUN, 0.8 creatinine. IMPRESSION AND PLAN 1. Recurrent rectal carcinoma. 2. Postoperative state, status post lower perineal resection of left colon as well as exploratory laparotomy and removal of omental mass. 3. Hypertension. 4. Postoperative pain. 5. Postoperative fever, expected and improving. Continue to follow up the fever curve. The patient will be followed for bowel movements. He had a rectal resection; therefore, there is a lot of healing to do. The patient will be downgraded on his pain medicine, and he is converted to oral pain medicine for now. Continue to work to mobilize him. Polanco is out. Ensure appropriate voiding. Repeat blood count tomorrow. Job#: [id number]
--- NOTE | 2018-08-02 14:20 | NUR ---
BLADDER SCAN PERFORMED 19CC MAX, PT IS NOT HAVING SPASMS, OR FEELS BLADDER FULL . PT HAS HAD DROPS OF URINE BUT NO GOOD FLOW OF URINE . PAGED MD MINA FOR ORDERS
--- NOTE | 2018-08-02 17:01 | NUR ---
SPOKE WITH MD MINA REGARDING PT NOT VOIDING A BERG REMOVAL AND DOING A SECOND BLADDER SCAN SHOWING 30CC. STATES IF PT DOES NOT VOID PLACE BERG IN AT 1900. ORDERS RECEIVED
[2018-08-02] MEDS: HYDROCODONE/APAP 10MG-325MG TAB PO PRN (17:22)
[2018-08-02] MEDS: CALCIUM CARBONATE 500 MG CHEWABLE TABS PO PRN (19:57)
--- NOTE | 2018-08-02 21:00 | NUR ---
PT IS LYEING ON THE BED .ASSESSMENT DONE.NO RESP.DISTRESS.PAIN MEDICATION GIVEN.BERG DRAINING WELL.BED LOCKED AND IN LOWEST POSITION.PHONE AND CALL LIGHT WITHIN REACH.INSTRUCTED TO CALL FOR ASSISTANCE NEEDED.CHANCE DRAINING WELL.DRESSING SITE IS DRY AND INTACT.
[2018-08-02] MEDS ORDERED: ACETAMINOPHEN 1000 MG/100 ML IV PRN (21:15)
[2018-08-03] VITALS (7 sets, daily range): BP systolic 93–137; BP diastolic 60–80
[2018-08-03] MEDS: VANCOMYCIN 1GM/NS 250 ML 250 ML IV SCH (00:02)
[2018-08-03] MEDS: HYDROCODONE/APAP 10MG-325MG TAB PO PRN ×5 (00:33→22:00)
[2018-08-03] MEDS: ONDANSETRON HCL INJ 2 MG/ML VIAL IV PRN (03:36)
[2018-08-03] MEDS: HYDROMORPHONE 2MG/ML 2 MG/ML ML IV PRN ×5 (03:37→23:30)
[2018-08-03] MEDS: CEFOXITIN SODIUM 2 G in SODIUM CHLORIDE 0.9% 50ML 50 ML IV SCH ×2 (05:52→12:11)
[2018-08-03 06:03] LABS: BASOPHILS % 0.3 % (0.0-1.0); EOSINOPHILS # (AUTO) 0.5 (0.0-0.4); EOSINOPHILS % 4.5 % (0.0-6.0); HEMATOCRIT 30.3 % (38.2-49.6); HEMOGLOBIN 9.6 g/dL (14.0-18.0); MEAN CORPUSCULAR HEMOGLOBIN 27.6 pg (28-32); MEAN CORPUSCULAR HGB CONC 31.7 g/dL (31-35); MEAN CORPUSCULAR VOLUME 87.1 fL (81-99); MONOCYTES # (AUTO) 0.9 (0.2-0.8); MONOCYTES % 7.6 % (4.4-11.3); NEUTROPHILS # (AUTO) 9.4 (2.1-6.9); NEUTROPHILS % 78.8 % (38.7-80.0); PLATELET COUNT 222 x10e3/uL (140-360); RED BLOOD COUNT 3.48 x10e6/uL (4.3-5.7); RED CELL DISTRIBUTION WIDTH 13.9 % (11.7-14.4)
--- NOTE | 2018-08-03 07:00 | NUR ---
REPORT GIVEN TO THE ONCOMING RN.WALKING ROUNDS DONE.STABLE CONDITION.
--- NOTE | 2018-08-03 07:02 | NUR ---
Received patient walking in bedroom, family member at bedside. AAOX3 to time, person, place, situation. Respirations even and unlabored. Instructed patient to use call light for assistance. Voiced understanding.
[2018-08-03] MEDS: BUPROPION HCL SR 150 MG TAB PO SCH ×2 (08:21→08:26)
--- NOTE | 2018-08-03 10:15 | NUR ---
ASSESSMENT: Spiritual concern Pt cautiously hopeful. Pt states he has had a series of setbacks since diagnosis. Pt's at bedside. Intervention: Provided pastoral support and prayer. Facilitated illness review. Outcome: Will continue to follow. NANCY HURT Orthotic Practitioner Spiritual Care Department O: [phone] Pager: [phone] ([phone] number calling from)
--- NOTE | 2018-08-03 14:30 | Progress Note ---
DATE: August 03, 2018 PULMONARY MEDICINE PROGRESS NOTE SUBJECTIVE: Mr. Mathur was seen and examined at bedside. He continues to have some progress. He can independently although slowly get up out of bed on his own. The patient had Polanco reinserted yesterday with 600 mL of output. He had gone half the way without voiding yesterday when the Polanco was put in. The patient is tolerating his regular diet that he is on right now. REVIEW OF SYSTEMS: No headaches. No bleeding. OBJECTIVE VITALS: Afebrile. Vital signs noted per electronic record. GENERAL: In no acute distress. Alert and calm. HEENT: Normocephalic and atraumatic. NECK: Supple. Throat midline. LUNGS: Bilateral air entry, limited. Decreased breath sounds but clear. CARDIOVASCULAR: S1 and S2. No murmurs, rubs or gallops. ABDOMEN: Soft and nontender. EXTREMITIES: No clubbing. No cyanosis. There is trace edema. INTEGUMENT: No rash. No purpura. LABS: BUN 10, creatinine 0.8. White count 12, platelets 222,000. IMPRESSION AND PLAN 1. Recurrent rectal carcinoma. 2. Postoperative state: Status post lower perineal resection of rectal carcinoma, exploratory laparotomy with left hemicolectomy, as well as omental mass resection. 3. Weakness, probably due to pain. 4. Obesity. 5. Anemia, mostly stable. At this point, will start DVT chemoprophylaxis with enoxaparin and continue SCDs. Will repeat a blood count in a couple of days. The patient can continue to mobilize as tolerated. Maintain the Polanco in place for urinary retention. 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 Continue decreasing pain medicines as needed knowing that he did have a big surgery that can cause a lot of pain. The patient remains in improving condition. Job#: [id number] [place]
[2018-08-03] MEDS: PIPER-TAZ 3.375 GM 50 ML IV SCH (17:47)
[2018-08-03] MEDS: ENOXAPARIN SOD INJ 40 MG/0.4 ML SYR SC SCH (17:47)
--- NOTE | 2018-08-03 19:00 | NUR ---
Report given to oncoming nurse of patient's status. No s/s of acute distress noted.
--- NOTE | 2018-08-03 19:23 | NUR ---
WALKING ROUNDS PERFORMED, RECEIVED PT LAYING SEMI FOWLERS IN BED, AAOX3, RR EVEN AND NON-LABORED, ON RA. PT ASSISTED TO SITTING ON SIDE OF BED, PT REPORTS HE PLANS TO AMBULATE IN KO WITH FAMILY MEMBER AT SIDE. LEFT PT SITTING ON SIDE OF BED, BED IN LOW LOCKED POSITION, SIDE RAILS UPX2, CALL LIGHT AND PHONE WITHIN REACH. FAMILY AT BEDSIDE.
--- NOTE | 2018-08-03 19:40 | NUR ---
PT AMBULATING IN KO WITH FAMILY MEMBER AT SIDE, STEADY GAIT NOTED.
--- NOTE | 2018-08-03 20:33 | NUR ---
DRESSING TO LOWER ANTERIOR ABD NOTED TO BE LEAKING, DRESSING CHANGED AT THIS TIME, APPLIED DRY DRESSING TO ANTERIOR ABD.
[2018-08-03] MEDS: LACTATED RINGER'S 1,000 ML IV SCH (21:59)
[2018-08-04] VITALS (7 sets, daily range): BP systolic 105–136; BP diastolic 66–80
[2018-08-04] MEDS: PIPER-TAZ 3.375 GM 50 ML IV SCH ×5 (00:17→23:58)
[2018-08-04] MEDS: HYDROMORPHONE 2MG/ML 2 MG/ML ML IV PRN ×5 (03:30→22:23)
[2018-08-04] MEDS: HYDROCODONE/APAP 10MG-325MG TAB PO PRN ×5 (04:30→22:56)
--- NOTE | 2018-08-04 05:10 | NUR ---
DRESSING TO LOWER ANTERIOR ABD NOTED TO BE LEAKING, DRESSING CHANGED AT THIS TIME, CLEANSED INCISION WITH NS, APPLIED DRY DRESSING TO ANTERIOR ABD.
--- NOTE | 2018-08-04 07:15 | NUR ---
AMBULATING IN HALLWAY WITH USE OF WALKER, STEADY GAIT, FAMILY AT SIDE
[2018-08-04] MEDS: ONDANSETRON HCL INJ 2 MG/ML VIAL IV PRN ×3 (07:55→17:30)
[2018-08-04] MEDS: BUPROPION HCL SR 150 MG TAB PO SCH (10:00)
--- NOTE | 2018-08-04 10:30 | NUR ---
PT C/O "BEING UNCOMFORTABLE" FROM CURRENT BED, BED SWITCHED PER PT REQUEST Addendum: 08/04/18 at 1052 by Elana Vargas RN MEDICATED PER ORDER FOR 04/06 ABD PAIN, EDUCATED TO CALL FOR ASSISTANCE PRIOR TO GETTING OOB, PT VERBALIZED UNDERSTANDING, CALL LIGHT WITHIN REACH, FAMILY AT SIDE
--- NOTE | 2018-08-04 10:50 | NUR ---
VILLA INTO SEE PT, DISCUSSED POC, EDUCATED PT THAT THE RESIDUAL FROM RECTAL AREA "WILL STOP LEAKING", NO SET TIME, PT VERBALIZED UNDERSTANDING
--- NOTE | 2018-08-04 12:51 | NUR ---
MEDIATED PER ORDER FOR ABD PAIN 03/06 AT T 1230, EDUCATED TO NOT GET OOB WITHOUT CALLING FOR ASSISTANCE, VERBALIZED UNDERSTANDING, CALL LIGHT WITHIN REACH, FAMILY AT SIDE Addendum: 08/04/18 at 1738 by Elana Vargas RN *MEDICATED
[2018-08-04] MEDS: LACTATED RINGER'S 1,000 ML IV SCH (14:03)
--- NOTE | 2018-08-04 17:00 | NUR ---
BIG BOY DELIVERED, PT AMBULATED TO BEDSIDE COUCH, BED SWITCHED OUT, PT COMPLAINED THAT NEW BED "IS TOO TALL AND CANNOT GET OUT OF EASILY", "BRING BACK THE ORIGINAL BED", PT OUT OF BED TO BEDSIDE COUCH AGAIN, BIG BOY BED SWITCHED FOR ORIGINAL BED, CALL LIGHT PLACED WITHIN REACH
--- NOTE | 2018-08-04 17:06 | Progress Note ---
DATE: August 04, 2018 PULMONARY MEDICINE PROGRESS NOTE SUBJECTIVE: Mr. Mathur was seen and examined at bedside. He is tolerating his diet. He is having bowel after surgery. Patient is on 3 liters per minute by nasal cannula with 99% oxygen saturation. He still has issues with pain, of course. REVIEW OF SYSTEMS: No headaches, no rash. OBJECTIVE VITALS: Afebrile, vital signs noted per electronic record. GENERAL: In no acute distress, alert and calm. HEENT: Normocephalic, atraumatic. NECK: Supple. Throat midline. LUNGS: Bilateral air entry, decreased breath sounds but clear. CARDIOVASCULAR: S1 and S2. No murmurs, rubs, or gallops. ABDOMEN: Soft, nontender. EXTREMITIES: No clubbing. No cyanosis. There is trace edema. INTEGUMENT: No rash. No purpura. IMPRESSION AND PLAN 1. Recurrent rectal carcinoma. 2. Postoperative state, status post lower perineal resection of rectal carcinoma, exploratory laparotomy with left hemicolectomy and omental mass resection. 3. Postoperative pain. 4. Hypertension. 5. Active smoker. Continue pain medicines. Mobilize patient as possible. Wean oxygen down. Will check blood work in another couple days. Patient for now can continue antibiotics for routine postoperative care given complexity at the surgery. DVT prophylaxis is on with mechanical as well as chemo prophylaxis. Job#: [id number] GUERITA
--- NOTE | 2018-08-04 17:30 | NUR ---
MEDICATED PER MD ORDER FOR 1010 ABD PAIN, EDUCATED TO NOT GET OOB WITHOUT CALLING FOR ASSISTANCE , PT VERBALIZED UNDERSTANDING, CALL LIGHT WITHIN REACH, FAMILY AT SIDE
[2018-08-04] MEDS: ENOXAPARIN SOD INJ 40 MG/0.4 ML SYR SC SCH (17:35)
--- NOTE | 2018-08-04 18:56 | NUR ---
WALKING ROUNDS PERFORMED, RECEIVED PT LAYING FOWLERS IN BED, AAOX3, RR EVEN AND NON-LABORED, ON RA. PT REPORTS PAIN TO ANTERIOR ABD. DRESSING CDI TO ANTERIOR ABD. LEFT PT LAYING FOWLERS IN BED, BED IN LOW LOCKED POSITION, SIDE RAILS UPX2, CALL LIGHT AND PHONE WITHIN REACH.
--- NOTE | 2018-08-04 22:15 | NUR ---
PT AMBULATING IN KO WITH WALKER ABD FAMILY MEMBER. STEADY GAIT NOTED.
[2018-08-05] VITALS (8 sets, daily range): BP systolic 109–148; BP diastolic 62–81
[2018-08-05] MEDS: HYDROMORPHONE 2MG/ML 2 MG/ML ML IV PRN ×5 (03:35→22:13)
[2018-08-05] MEDS: HYDROCODONE/APAP 10MG-325MG TAB PO PRN ×3 (06:00→20:24)
[2018-08-05] MEDS: PIPER-TAZ 3.375 GM 50 ML IV SCH ×4 (06:07→23:38)
--- NOTE | 2018-08-05 06:30 | NUR ---
DRESSING TO ANTERIOR ABD. DRY DRESSING APPLIED BED BATH AND LINEN CHANGED PERFORMED.
[2018-08-05] MEDS: ONDANSETRON HCL INJ 2 MG/ML VIAL IV PRN ×3 (08:00→17:34)
--- NOTE | 2018-08-05 08:00 | NUR ---
MEDICATED PER MD ORDER FOR 03/06 ABD PAIN, EDUCATED TO NOT GET OOB WITHOUT CALLING FOR ASSISTANCE, PT VERBALIZED UNDERSTANDING, CALL LIGHT WITHIN REACH, BREAKFAST TRAY SET UP
[2018-08-05] MEDS: BUPROPION HCL SR 150 MG TAB PO SCH (08:09)
[2018-08-05] MEDS: LACTATED RINGER'S 1,000 ML IV SCH (10:03)
--- NOTE | 2018-08-05 11:30 | NUR ---
NEW 20G TO RIGHT HAND BY CHARGE NURSE, PT TOLERATED WELL, PT OOB WITH STANDBY ASSIST AND USE OF WALKER, AMBULATING IN HALLWAY, AT SIDE
--- NOTE | 2018-08-05 13:20 | NUR ---
MD MINA INTO SEE PT, DISCUSSED POC, MD VILLA INTO SEE PT, DISCUSSED POC
--- NOTE | 2018-08-05 14:04 | NUR ---
AMBULATING IN HALLWAY, STEADY GAIT
--- NOTE | 2018-08-05 14:21 | Progress Note ---
DATE: August 05, 2018 PULMONARY MEDICINE PROGRESS NOTE SUBJECTIVE: Mr. Mathur was seen and examined at bedside. He continues to have steady progress. 3.6 liters in, 3.4 liters out. Polanco in place with urine output. Patient moving little bit more. He was able to sit up for about 30 minutes at a time before pain reinforced that he needs to get off his buttocks. He was walking as well. He is eating. REVIEW OF SYSTEMS: No headaches, no rash. OBJECTIVE VITALS: Afebrile, vital signs noted per electronic record. GENERAL: In no acute distress, alert and calm. HEENT: Normocephalic, atraumatic. NECK: Supple. Throat midline. LUNGS: Bilateral air entry, decreased breath sounds, otherwise clear. CARDIOVASCULAR: S1 and S2. No murmurs, rubs, or gallops. ABDOMEN: Soft, nontender. EXTREMITIES: No clubbing. No cyanosis. There is trace edema. INTEGUMENT: No rash. No purpura. IMPRESSION AND PLAN 1. Recurrent rectal carcinoma. 2. Postoperative state, status post lower perineal resection, omental tumor resection, left hemicolectomy. 3. Weakness. 4. Postoperative pain. 5. Possible peritonitis. 6. Active smoker. Continue antibiotic at this time, which is Zosyn as his spectrum of bacteria seems to be mostly sensitive. Continue enoxaparin and mechanical DVT prophylaxis. Get the patient up out of bed as possible. Try to wean pain medicines as feasible. Repeat some labs tomorrow as it has been a few days since he had some. Job#: [id number]
[2018-08-05] MEDS: ENOXAPARIN SOD INJ 40 MG/0.4 ML SYR SC SCH (17:39)
--- NOTE | 2018-08-05 18:34 | NUR ---
AMBULATING IN HALLWAY, STEADY GAIT, FAMILY AT SIDE
--- NOTE | 2018-08-05 20:07 | NUR ---
INITIAL ASSESSMENT COMPLETE, PT IN BED WITH FAMILY AT BEDSIDE, DRESSING TO MIDLINE CDI, CHANCE DRAIN TO RIGHT SIDE DRAINING SEROUS SANGUANUS FLUID, LEFT SIDE COLOSTOMY INTACT DRAINING, TELE ON PT, IV INFUSING, NO DISTRESS NOTED, SOME ABD PAIN NOTED, BERG DRAINING, PT USING IS, NO OTHER NEEDS,CALL LIGHT IN REACH
[2018-08-06] VITALS (8 sets, daily range): BP systolic 128–145; BP diastolic 67–87
[2018-08-06] MEDS: HYDROMORPHONE 2MG/ML 2 MG/ML ML IV PRN ×4 (04:04→21:10)
[2018-08-06] MEDS: PIPER-TAZ 3.375 GM 50 ML IV SCH ×3 (05:56→17:16)
[2018-08-06] MEDS: HYDROCODONE/APAP 10MG-325MG TAB PO PRN ×4 (05:59→22:57)
[2018-08-06] MEDS: LACTATED RINGER'S 1,000 ML IV SCH (06:03)
[2018-08-06 06:16] LABS: BASOPHILS % 0.4 % (0.0-1.0); EOSINOPHILS # (AUTO) 0.4 (0.0-0.4); EOSINOPHILS % 3.9 % (0.0-6.0); HEMATOCRIT 29.2 % (38.2-49.6); HEMOGLOBIN 9.2 g/dL (14.0-18.0); LYMPHOCYTES # (AUTO) 1.4 (1.0-3.2); LYMPHOCYTES % 14.4 % (18.0-39.1); MEAN CORPUSCULAR HEMOGLOBIN 27.4 pg (28-32); MEAN CORPUSCULAR HGB CONC 31.5 g/dL (31-35); MEAN CORPUSCULAR VOLUME 86.9 fL (81-99); MONOCYTES # (AUTO) 1.1 (0.2-0.8); MONOCYTES % 11.3 % (4.4-11.3); NEUTROPHILS # (AUTO) 6.7 (2.1-6.9); NEUTROPHILS % 67.5 % (38.7-80.0); PLATELET COUNT 289 x10e3/uL (140-360); RED BLOOD COUNT 3.36 x10e6/uL (4.3-5.7); RED CELL DISTRIBUTION WIDTH 14.4 % (11.7-14.4)
[2018-08-06 06:30] LABS: ALANINE AMINOTRANSFERASE 26 IU/L (0-55); ALBUMIN 2.2 g/dL (3.5-5.0); ALBUMIN/GLOBULIN RATIO 0.5 (0.8-2.0); ALKALINE PHOSPHATASE 71 IU/L (40-150); ANION GAP 12.9 mmol/L (8-16); BLOOD UREA NITROGEN < 5 mg/dL (7-26); CALCIUM 8.7 mg/dL (8.4-10.2); CARBON DIOXIDE 27 mmol/L (22-29); CHLORIDE 100 mmol/L (98-107); CREATININE, SERUM 0.71 mg/dL (0.72-1.25); EST GLOMERULAR FILTRATION RATE > 60 ML/MIN (60-); GLUCOSE 108 mg/dL (74-118); MAGNESIUM 1.6 MG/DL (1.3-2.1); POTASSIUM 3.9 mmol/L (3.5-5.1); SODIUM 136 mmol/L (136-145)
[2018-08-06 06:32] LABS: BUN/CREATININE RATIO 7 (6-25)
--- NOTE | 2018-08-06 06:45 | NUR ---
PT AWAKE, VS STABLE, WALKING ROUNDS DONE, FAMILY AT BEDSIDE, IV INFUSING, CALL LIGHT IN REACH
[2018-08-06 07:19] LABS: EOSINOPHILS % (MANUAL) 2 % (0-7); LYMPHOCYTES % (MANUAL) 13 % (19-48); MONOCYTES % (MANUAL) 13 % (3.4-9.0); NEUTROPHILS % (MANUAL) 72 % (40-74)
[2018-08-06 07:20] LABS: ANISOCYTOSIS S; PLATELET ESTIMATE ADEQUATE; PLATELET MORPHOLOGY COMMENT NORMAL; POIKILOCYTOSIS S; POLYCHROMASIA FEW; RBC MORPHOLOGY COMMENT ABNORMAL
--- NOTE | 2018-08-06 07:21 | NUR ---
Rcvd patient in report this am. Patient is asleep in bed at this time. NO s/s of distress noted
--- NOTE | 2018-08-06 08:00 | NUR ---
Removed valencia at this time. 350ml of straw urine noted. Patient tolerated well. Tip intact
[2018-08-06] MEDS: BUPROPION HCL SR 150 MG TAB PO SCH (08:06)
--- NOTE | 2018-08-06 09:30 | NUR ---
Patient voided 50 ml of urine at this time.
--- NOTE | 2018-08-06 10:40 | NUR ---
Pt unavailable at this time. Pt in shower. I will follow up as able. NANCY Guzmanlain Spiritual Care Department O: [phone] Pager: [phone] ([phone] number calling from)
--- NOTE | 2018-08-06 11:03 | NUR ---
Dressing changed to abdomen and CHANCE drain site. Mcleod clean and dry. CHANCE site clean and dry. Drainage noted from rectum area. ABD pad applied and mesh underwear as well. No c/o pain. Patient showered at this time.
--- NOTE | 2018-08-06 12:00 | NUR ---
Patient voided 100ml of straw urine noted.
--- NOTE | 2018-08-06 12:21 | Progress Note ---
DATE: August 06, 2018 PULMONARY MEDICINE PROGRESS NOTE SUBJECTIVE: Mr. Mathur was seen and examined at bedside. Urine output continues. Polanco was taken out at 8 a.m. He reportedly may have had a small void but we await a decent void. Had 2.9 L in, 3.1 L out. Patient is on IV fluids, lactated Ringer's at 50 mL per hour. He is getting Dilaudid and [place] mostly on a scheduled basis even though they are p.r.n. as he is requesting them often. He is mobilizing a little bit better. REVIEW OF SYSTEMS: No headaches, no rash. OBJECTIVE VITALS: Afebrile, vital signs noted per electronic record. GENERAL: No acute distress, alert and calm. HEENT: Normocephalic, atraumatic. NECK: Supple. Throat midline. LUNGS: Bilateral air entry, decreased breath sounds, mostly clear. CARDIOVASCULAR: S1 and S2. No murmurs, rubs, or gallops. ABDOMEN: Soft, nontender. EXTREMITIES: No clubbing. No cyanosis. There is trace edema. INTEGUMENT: No rash. No purpura. LABS: 10 white count, 29 hematocrit, 289 platelets, 3.9 potassium, 0.7 creatinine. IMPRESSION AND PLAN 1. Recurrent rectal carcinoma. 2. Postoperative state, status post lower perineal resection, left hemicolectomy, omental mass resection with exploratory laparotomy. 3. Weakness. 4. Continuous pain, rectal and abdominal. 5. Urinary retention. Polanco was taken out. We await good trial of void. The patient was encouraged to go down on the stronger pain medicines as possible. Continue mobilizing him. Discontinue telemetry. Continue antibiotic. After he adequately pees, we can stop the lactated Ringer's IV fluids. Job#: [id number]
--- NOTE | 2018-08-06 13:20 | NUR ---
ASSESSMENT: Spiritual distress Pt worried about depleting [facility]dc funds due to illness. Pt states, "I feel a little down." Pt's at bedside. Intervention: Facilitated identification of emotions. Provided unhurried pastoral presence and prayer. Normalized pt's experience. Outcome: Will continue to follow. NANCY HURT Wood Barrel Reconditioner Spiritual Care Department O: [phone] Pager: [phone] ([phone] number calling from)
--- NOTE | 2018-08-06 17:13 | NUR ---
Nutrition Screen Note RD Recommendation for Physician: - Continue regular diet as ordered Plan of Care: RD following, monitoring for tolerance and adequacy Nutrition reason for involvement: LOS Primary Diagnose(s): recurrent rectal carcinoma s/p lower perineal resection, left hemicolectomy, omental mass resection with exploratory laparotomy on 07/31 PMH: colon cancer, HTN, rectal cancer s/p chemotherapy Ht: 75in Wt: 366.19lb BMI: 45.8kg/m2 IBW: 196lb RD Assessment: (08/06) Chart reviewed. Labs and meds reviewed. 58yo M, who is post-op day 6 for rectal carcinoma. During my assessment, pt reports of improved appetite with ~60-100% PO intake. Pt denies any nausea or vomiting. Colostomy bag is present. Pt has had some abdominal pain since surgery and pain meds have been given. 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 No complain of chewing or swallowing difficulty. Will continue to monitor and follow. Current Diet: regular diet Malnutrition Evaluation (08/06) The patient does not meet criteria for a specified degree of malnutrition at this time. Will re-evaluate at follow-up as appropriate. Diet Education Needs Assessment: Diet education not indicated, pt is on regular diet. Nutrition Care Level: low Signed: Iona Mayfield, MS, RD, LD
[2018-08-06] MEDS: ENOXAPARIN SOD INJ 40 MG/0.4 ML SYR SC SCH (17:16)
--- NOTE | 2018-08-06 19:20 | NUR ---
Report received and walking rounds complete. Pt resting in bed and in no apparent distress. at bedside and to stay overnight. All safety measures ensured and pt call alejandre near. Pt encouraged to use call alejandre for assistance.
--- NOTE | 2018-08-06 19:55 | NUR ---
Pt c/o rectum hurting and has extreme pain during urination when urine touches the area. Pt requested for barrier cream or medication. Pt has Calazime and wants to know if that can be used. Contacted Dr. Lindo to see if Calazime ok to use or another medication order given. stated ok to use Calazime.
[2018-08-07] VITALS (7 sets, daily range): BP systolic 127–164; BP diastolic 67–97
[2018-08-07] MEDS: PIPER-TAZ 3.375 GM 50 ML IV SCH ×4 (00:30→17:42)
[2018-08-07] MEDS: HYDROMORPHONE 2MG/ML 2 MG/ML ML IV PRN ×3 (01:36→10:31)
[2018-08-07] MEDS: HYDROCODONE/APAP 10MG-325MG TAB PO PRN ×4 (02:58→21:50)
--- NOTE | 2018-08-07 05:47 | NUR ---
Explained to pt throughout shift that he should try and only take the [place] since he will be d/c today. Pt stated the Dilaudid works better and he wants to continue to take it. Pt refused to only have [place].
--- NOTE | 2018-08-07 07:13 | NUR ---
report given to oncoming nurse
--- NOTE | 2018-08-07 07:39 | NUR ---
Rcvd patient in report this am. Patient is awake in bed. Patient standing up at bedside. No s/s of distress noted Spouse at bedside
[2018-08-07] MEDS: BUPROPION HCL SR 150 MG TAB PO SCH (08:30)
--- NOTE | 2018-08-07 09:30 | NUR ---
Patient is AAOx3. Patient is post op perineal resection and colon resection. Medial abdominal incision clean and dry with ismael. Dressing changed this am. Some moderate amount of serous sanguinous drainage noted on dressing. CHANCE drain in place. Moderate amount of drainage from rectum area. ABD pad and mesh underwear in place. Patient encouraged to ambulate with walker. Patient informed nurse that he has been ambulating in the bedroom. Incentive spirometer at bed side.
--- NOTE | 2018-08-07 10:05 | NUR ---
ASSESSMENT: Spiritual distress Pt angry concerning illness. Pt states, "I'm beyond frustrated." Pt's at bedside. Intervention: Provided unhurried pastoral presence. Facilitated exploration of emotions. Provided prayer. Outcome: Pt expressed appreciation for visit. Will continue follow as able. NANCY HURT Power Line Installer And Repairer Spiritual Care Department O: [phone] Pager: [phone] ([phone] number calling from)
--- NOTE | 2018-08-07 16:30 | NUR ---
Nurse called to room and was informed by patient that he bleeding from his rectum area. Patient has had moderate amounts of drainage from rectum but now it was noted to have bright red blood saturated on three wipes in the trash can. Call placed to dr. avila and no new orders. Keep pad in area to cover and MD to assess in the am.
[2018-08-07] MEDS: ENOXAPARIN SOD INJ 40 MG/0.4 ML SYR SC SCH (17:42)
--- NOTE | 2018-08-07 19:48 | Progress Note ---
DATE: August 07, 2018 PULMONARY MEDICINE PROGRESS NOTE SUBJECTIVE: Mr. Mathur was seen and examined at bedside. There were some reports of bloody spotting from rectal area. He has moderate amounts of pinkish exudative drainage at baseline, and when I directly looked, I only saw the pinkish exudate. Patient is getting serial evaluation of the possibility of bleeding. He is urinating and he is not having any evidence of urinary retention. Patient remains with CHANCE in place. REVIEW OF SYSTEMS: No headaches, no diarrhea. OBJECTIVE: VITAL SIGNS: Afebrile, vital signs noted per electronic record. GENERAL: In no acute distress, alert and calm. HEENT: Normocephalic, atraumatic. NECK: Supple. Throat midline. LUNGS: Bilateral air entry, limited but clear. CARDIOVASCULAR: S1, S2. No murmurs, rubs, or gallops. ABDOMEN: Soft, nontender. EXTREMITIES: No clubbing, no cyanosis, there is trace edema. INTEGUMENT: No rash, no purpura. LABS: No new updates. IMPRESSION AND PLAN: 1. Recurrent rectal carcinoma. 2. Postoperative state, status post lower perineal resection, omental mass resection, left colon resection. 3. Obesity. 4. Bright red blood per rectum, under evaluation. Continue to mobilize patient carefully. Polanco is out, follow up urine output. Ensure appropriate voiding. Continue antibiotics. Wound culture was taken of Baltazar-De La Rosa drain, will follow this for bacterial spectra. Deep venous thrombosis prophylaxis is still on for now and will consider stopping this if bleeding gets excessive. For now, he will be made n.p.o. just in case there is consideration for surgery tomorrow. Job#: [id number]
--- NOTE | 2018-08-07 21:00 | NUR ---
PT IS LYEING ON THE BED.MILD DRAINAGE NOTED FROM THE RECTUM.ASSESSMENT DONE.NO RESP.DISTRESS.FAMILY MEMBER AT BED SIDE.PHONE AND CALL LIGHT WITHIN REACH.
[2018-08-08] VITALS (8 sets, daily range): BP systolic 105–159; BP diastolic 65–96
[2018-08-08] MEDS: PIPER-TAZ 3.375 GM 50 ML IV SCH ×4 (00:05→18:40)
[2018-08-08] MEDS: HYDROMORPHONE 2MG/ML 2 MG/ML ML IV PRN ×5 (01:17→22:11)
[2018-08-08] MEDS: ONDANSETRON HCL INJ 2 MG/ML VIAL IV PRN ×4 (01:17→16:12)
[2018-08-08 05:59] LABS: BASOPHILS # (AUTO) 0.1 (0.0-0.1); BASOPHILS % 0.5 % (0.0-1.0); EOSINOPHILS # (AUTO) 0.5 (0.0-0.4); HEMATOCRIT 31.7 % (38.2-49.6); HEMOGLOBIN 9.8 g/dL (14.0-18.0); LYMPHOCYTES # (AUTO) 1.8 (1.0-3.2); LYMPHOCYTES % 19.6 % (18.0-39.1); MEAN CORPUSCULAR HEMOGLOBIN 27.4 pg (28-32); MEAN CORPUSCULAR HGB CONC 30.9 g/dL (31-35); MEAN CORPUSCULAR VOLUME 88.5 fL (81-99); MONOCYTES # (AUTO) 0.9 (0.2-0.8); MONOCYTES % 9.5 % (4.4-11.3); NEUTROPHILS # (AUTO) 5.9 (2.1-6.9); NEUTROPHILS % 63.6 % (38.7-80.0); PLATELET COUNT 380 x10e3/uL (140-360); RED BLOOD COUNT 3.58 x10e6/uL (4.3-5.7); RED CELL DISTRIBUTION WIDTH 14.6 % (11.7-14.4)
[2018-08-08 06:07] LABS: ALANINE AMINOTRANSFERASE 54 IU/L (0-55); ALBUMIN 2.4 g/dL (3.5-5.0); ALBUMIN/GLOBULIN RATIO 0.5 (0.8-2.0); ALKALINE PHOSPHATASE 71 IU/L (40-150); ANION GAP 15.2 mmol/L (8-16); BLOOD UREA NITROGEN 8 mg/dL (7-26); BUN/CREATININE RATIO 9 (6-25); CALCIUM 9.3 mg/dL (8.4-10.2); CARBON DIOXIDE 27 mmol/L (22-29); CHLORIDE 104 mmol/L (98-107); CREATININE, SERUM 0.85 mg/dL (0.72-1.25); EST GLOMERULAR FILTRATION RATE > 60 ML/MIN (60-); GLUCOSE 106 mg/dL (74-118); POTASSIUM 4.2 mmol/L (3.5-5.1); SODIUM 142 mmol/L (136-145)
[2018-08-08] MEDS: BUPROPION HCL SR 150 MG TAB PO SCH (09:00)
[2018-08-08] MEDS: DEXTROSE 5%/0.45% SOD CHL 1,000 ML IV SCH ×3 (09:46→22:28)
--- NOTE | 2018-08-08 10:00 | NUR ---
pt medicated with dilaudid 1mg Addendum: 08/09/18 at 2109 by Aguilar Medina RN electronics production supervisor jessica mueller rn witnessed dilaudid 1mg waste this night and teresa houser rn made aware.
--- NOTE | 2018-08-08 10:20 | NUR ---
ASSESSMENT: Spiritual distress Visit requested by pt. Pt overwhelmed by illness. Pt states he is scheduled for another procedure today. Pt states, "When is this going to end?" and "If this doesn't work should I just give up?" Pt's at bedside. Intervention: Provided calming pastoral presence. Facilitated illness review. Provided prayer. Provided compassionate touch. Outcome: Pt & expressed appreciation for support. Will continue to follow as able. NANCY HURT Commission Auditor Spiritual Care Department O: [phone] Pager: [phone] ([phone] number calling from)
--- NOTE | 2018-08-08 12:30 | NUR ---
left floor for surgery
[2018-08-08] MEDS ORDERED: BUPIVACAINE HCL 0.5% INJ 30 ML VIAL INJ ONE (13:01)
[2018-08-08] MEDS ORDERED: BUPIVACAINE 0.5%/EPI 30 ML SDV INJ ONE (13:01)
[2018-08-08] MEDS ORDERED: BACITRACIN 50,000 UNIT VIAL ONE (13:01)
[2018-08-08] MEDS ORDERED: DEXTROSE 5%/0.45% SOD CHL 1,000 ML IV SCH (13:48)
--- NOTE | 2018-08-08 14:17 | NUR ---
PT RETURNED FROM SURGERY, AA/O X3
--- NOTE | 2018-08-08 14:24 | Operative Report ---
DATE OF PROCEDURE: August 08, 2018 PREOPERATIVE DIAGNOSIS: Open perineal wound with pelvic abscess. POSTOPERATIVE DIAGNOSIS: Open perineal wound with pelvic abscess. PROCEDURE: Incision and drainage of perineal wound with drainage of pelvic abscess. BRAKE COUPLER ROAD FREIGHT: None. ANESTHESIA: General. OPERATION PERFORMED: INDICATIONS AND FINDINGS: Patient is a 58-year-old male who had abdominal perineal resection done last week for recurrent rectal cancer. At surgery, he was found to have open wound in the perineum with purulent fluid high in the pelvis and site of the previous resection which was drained. Tissues all appeared viable. There was no gross evidence of any recurrent cancer. TECHNIQUE: After adequate general endotracheal anesthesia, patient in supine position with legs in stirrups, the perineum was prepped and draped in a sterile fashion with Betadine solution. Perineal wound was partially open. This was opened completely. High up in the pelvis, there was some purulent fluid with a foul smell and some small amount of necrotic debris. This was all drained and had already previously been cultured. The wound was then irrigated with large volume of warm saline. Approximately 2 liters of saline was used to irrigate out the aspirate until the drainage was clear. It was inspected. There was some bleeding which was controlled with electrocautery. The wound was then partially closed and four 1/2-inch [place] drains were placed into the wound up into the upper pelvis and the perineal wound closed loosely with drains in place with interrupted sutures of 2-0 Vicryl. Sterile dressing was then applied. The patient tolerated procedure well. Estimated blood loss was 50 mL. There were no complications. All counts were correct. Patient was taken to the recovery room in satisfactory condition. Job#: [id number] ELIJAH
[2018-08-08] MEDS ORDERED: TAMSULOSIN HCL 0.4 MG CAP PO ONE (18:30)
[2018-08-08] MEDS: ENOXAPARIN SOD INJ 40 MG/0.4 ML SYR SC SCH (18:40)
[2018-08-08] MEDS ORDERED: FENTANYL CITRATE/PF 100MCG/2 ML INJ ONE (19:00)
[2018-08-08] MEDS ORDERED: MIDAZOLAM HCL 2 MG/2 ML VIAL ONE (19:00)
[2018-08-08] MEDS ORDERED: ONDANSETRON HCL INJ 2 MG/ML VIAL ONE (19:12)
[2018-08-08] MEDS ORDERED: DEXAMETHASONE SOD PHOS INJ 4 MG/ML VIAL ONE (19:12)
[2018-08-08] MEDS ORDERED: DESFLURANE 240 ML BTL INH ONE (19:12)
[2018-08-08] MEDS ORDERED: PROPOFOL IV EMULSION 10 MG/ML 20 ML VIAL ONE (19:12)
[2018-08-08] MEDS ORDERED: KETOROLAC TROMETHAMINE 30 MG/ML VIAL ONE (19:12)
[2018-08-08] MEDS: HYDROCODONE/APAP 10MG-325MG TAB PO PRN (19:32)
[2018-08-09] VITALS (8 sets, daily range): BP systolic 135–167; BP diastolic 72–90
--- NOTE | 2018-08-09 00:05 | Progress Note ---
DATE: August 08, 2018 PULMONARY MEDICINE PROGRESS NOTE SUBJECTIVE: Mr. Mathur was seen and examined at bedside. He continues to have slow, but steady progress. Patient with urinary incontinence. Patient did have surgery today where the only finding was small open wound with small abscess upon exploration, but otherwise unremarkable. Estimated blood loss was only 50 mL. Patient recovered well and is back in his room. He is awake and able to eat and distress. REVIEW OF SYSTEMS: No headaches, no rash. OBJECTIVE: VITAL SIGNS: Afebrile, vital signs noted per electronic record. GENERAL: In no acute distress, alert and calm. HEENT: Normocephalic, atraumatic. NECK: Supple. Throat midline. LUNGS: Bilateral air entry, clear. CARDIOVASCULAR: S1, S2. No murmurs, rubs, or gallops. ABDOMEN: Soft, nontender. Abdomen is postoperative with bandage . EXTREMITIES: No clubbing, no cyanosis, no edema. INTEGUMENT: No rash, no purpura. LABS: 4.2 potassium, 8 BUN, 0.9 creatinine. 9 white count platelets. IMPRESSION AND PLAN: 1. Postoperative state, status post incision and drainage of perineal wound with drainage of pelvic abscess. 2. Open perineal wound with pelvic abscess. 3. Recent diagnosis of recurrent rectal carcinoma. 4. Postoperative state, status post lower perineal resection, left hemicolectomy, omental mass resection, and resection of recurrent rectal carcinoma. 5. Urinary incontinence. 6. Obesity. Continue current followup. Repeat blood work in the morning. Follow up on drains that are in place. Continue pain medicines. Ambulate him as possible. consult . Job#: [id number]
[2018-08-09] MEDS: PIPER-TAZ 3.375 GM 50 ML IV SCH ×2 (00:44→05:16)
[2018-08-09] MEDS: HYDROCODONE/APAP 10MG-325MG TAB PO PRN ×4 (00:45→20:58)
[2018-08-09] MEDS: HYDROMORPHONE 2MG/ML 2 MG/ML ML IV PRN ×5 (04:20→23:40)
[2018-08-09] MEDS: ONDANSETRON HCL INJ 2 MG/ML VIAL IV PRN ×2 (05:16→18:01)
--- NOTE | 2018-08-09 05:17 | NUR ---
Per MD order dressing to abdomen changed. Patient's stated she changes dressing to perineal area BID or as needed.
[2018-08-09 06:15] LABS: BASOPHILS % 0.2 % (0.0-1.0); EOSINOPHILS # (AUTO) 0.1 (0.0-0.4); EOSINOPHILS % 0.4 % (0.0-6.0); HEMOGLOBIN 9.8 g/dL (14.0-18.0); LYMPHOCYTES # (AUTO) 1.6 (1.0-3.2); LYMPHOCYTES % 9.8 % (18.0-39.1); MEAN CORPUSCULAR HEMOGLOBIN 26.9 pg (28-32); MEAN CORPUSCULAR HGB CONC 30.6 g/dL (31-35); MEAN CORPUSCULAR VOLUME 87.9 fL (81-99); MONOCYTES % 6.4 % (4.4-11.3); NEUTROPHILS # (AUTO) 13.3 (2.1-6.9); PLATELET COUNT 399 x10e3/uL (140-360); RED BLOOD COUNT 3.64 x10e6/uL (4.3-5.7); RED CELL DISTRIBUTION WIDTH 14.6 % (11.7-14.4)
[2018-08-09 06:32] LABS: ANION GAP 13.3 mmol/L (8-16); BLOOD UREA NITROGEN 12 mg/dL (7-26); BUN/CREATININE RATIO 14 (6-25); CALCIUM 9.8 mg/dL (8.4-10.2); CARBON DIOXIDE 28 mmol/L (22-29); CHLORIDE 103 mmol/L (98-107); CREATININE, SERUM 0.86 mg/dL (0.72-1.25); EST GLOMERULAR FILTRATION RATE > 60 ML/MIN (60-); GLUCOSE 116 mg/dL (74-118); POTASSIUM 4.3 mmol/L (3.5-5.1); SODIUM 140 mmol/L (136-145)
--- NOTE | 2018-08-09 06:52 | NUR ---
Dr. Lindo paged to report elevation in WBC & mild temperature
--- NOTE | 2018-08-09 07:16 | NUR ---
Dr. Lindo informed of elevated WBC & mild temp, no new orders at this time
--- NOTE | 2018-08-09 07:45 | NUR ---
The pt called to request bladder scanning as he feel like he may be retaining urine. The scan was completed and very little urine remains in the bladder. The pt. was encouraged to walk more and was medicated for comp of pain.
[2018-08-09] MEDS: BUPROPION HCL SR 150 MG TAB PO SCH (08:50)
[2018-08-09] MEDS: CALCIUM CARBONATE 500 MG CHEWABLE TABS PO PRN (08:50)
[2018-08-09] MEDS: DEXTROSE 5%/0.45% SOD CHL 1,000 ML IV SCH ×2 (12:16→17:20)
--- NOTE | 2018-08-09 13:09 | Consultation ---
DATE OF CONSULTATION: August 08, 2018 REASON FOR CONSULTATION: Frequency, urgency, and incomplete voiding with urge incontinence. HISTORY: This is a 58-year-old male who had undergone multiple surgeries for problems related to cancer of the colon. The patient has recently undergone complete resection of his rectum and anus for recurrent cancer of the colon post radiation, post chemotherapy, and post original extirpation surgery. The patient has been here in the hospital, had his surgery, and has developed difficulty urinating. He complaint has been urge incontinence, slow flow, dysuria and feeling of incomplete voiding. A postvoid residual was obtained. The patient had over 150 mL PVR and then I was called in consultation. PAST MEDICAL HISTORY: History of carcinoma of the rectum treated with resection of the colon. He also has had reversal of his colostomy. He has had a colostomy placed in again for complications and he now has had recurrence of his cancer on the stump of the rectum and has had that portion removed. MEDICATIONS: He takes Prozac, losartan, and Flomax at home. ALLERGIES: TO CODEINE. SOCIAL HISTORY: . Not sexually active at this time. PHYSICAL EXAMINATION GENITOURINARY: The patient has no catheter. His penis is normal as well as his testicles. There is no swelling. No inguinal hernias. RECTAL: Examination cannot be done. There is no rectum at this time. I have done rectal examinations before. The patient's prostate gland is approximately 50 g. IMPRESSION: Difficulty urinating post surgery. RECOMMENDATION: Start Flomax which I will give the order to start right away. I will be checking his postvoid residual tomorrow as well. We may increase the dosage of Flomax to twice a day. We will be checking his urine. Most likely, I will order a culture tomorrow, and I will follow the patient while he remains in the hospital. Job#: [id number] ELIJAH
--- NOTE | 2018-08-09 13:51 | NUR ---
PATIENT C/O PAIN TO THE ABDOMEN WITH PAIN SCORE #7, MEDICATED WITH DILAUDID 1MG IM ORDERED. CALL LIGHT IN EASY REACH, ELLIOTT ESCOBEDO NOTIFIED THAT THE PATIENT WAS MEDICATED FOR PAIN SINCE SHE WILL NOW BE THE PRIMARY NURSE TAKING CARE OF THIS PATIENT.
--- NOTE | 2018-08-09 14:45 | Diagnostic Imaging Report ---
Exam: Abdominal film Clinical History: Severe abdominal pain Comparison: CT abdomen and pelvis with contrast 12/10/2017 DISCUSSION: Exam is limited by patient body habitus and portable technique. Midline surgical ismael project over the pelvis, with radiopaque packing material or drainage catheters projecting over the midline pelvis. The bowel gas pattern shows no dilated, air-filled loops of bowel. No susan pneumoperitoneum. No mass effect or organomegaly. Regional skeletal structures are grossly intact. IMPRESSION: Postsurgical changes of the pelvis as above. Nonobstructive bowel gas pattern. Signed by: Dr. Balaji Prince M.D. on 08/09/2018 2:42 PM
--- NOTE | 2018-08-09 15:28 | NUR ---
SPOKE WITH DR VARGAS RE: ELEVATED WHITE COUNT,AND ABDOMEN XRAY RESULTS. NO NEW ORDERS AT THIS TIME. PT PLACED ON CONTACT ISOLATION,INFORMED PT TO MOVED UPSTAIRS WHEN ROOM AVAILABLE.
--- NOTE | 2018-08-09 15:50 | NUR ---
CM SPOKE WITH DR MINA WHO STATES PT HAS ESBL IN WOUND DR MINA CALLED DR VARGAS TO ASK FOR I.D. CONSULT STARTED ON IV MERREM WILL LIKELY NEED 7-14 DAYS OF IV MERREM PER DR MINA [facility] [employer]AL[employer] TE[employer] [facility] [phone] WILL CALL IF DISCHARGED HOME ON IV ABX TRANSFERING TO MEDICAL FLOOR TODAY FOR MDR CX
--- NOTE | 2018-08-09 15:52 | Diagnostic Imaging Report ---
Examination: Single AP view of the chest. COMPARISON: Portable chest 05/17/2017 INDICATION: Line placement IMPRESSION: Exam limited by soft tissue attenuation from body habitus. 1. Lines and Tubes: Interval placement of left-sided PICC line, with distal tip projecting near the mid SVC. 2. Lungs are hypoinflated. Linear opacity in the left lower lung likely reflects subsegmental atelectasis. No consolidation. 3. Prominence of the cardiac silhouette, likely due to the low lung volumes. Central pulmonary venous crowding due to low lung volumes. 4. No acute bony abnormalities. Signed by: Dr. Олег Lo M.D. on 08/09/2018 3:48 PM
--- NOTE | 2018-08-09 16:20 | NUR ---
REPORT GIVEN TO RECEIVING NURSE PATIENT TO MOVE TO RM 213.
--- NOTE | 2018-08-09 16:40 | NUR ---
Pt transferred from room 108 at this time. Pt is aox4 and able to verbalize needs. Denies any pain at this time. Pt has CHANCE drain to right lower quadrant and has serous sanguinous fluid. Colostomy bag in place to left lower quadrant with watery stool noted. PICC line to left upper extremity and dressing is dry and intact.
--- NOTE | 2018-08-09 16:41 | Progress Note ---
DATE: August 09, 2018 PULMONARY MEDICINE PROGRESS NOTE SUBJECTIVE: Mr. Mathur was seen and examined at bedside. He continues to have slow but steady progress. So far, cultures are growing some resistant organisms, including ESBL E. coli. The patient continues with urinary incontinence. Bladder scan showed no significant retention. However, he is under close followup given history of urinary retention. The patient eating well. REVIEW OF SYSTEMS: No headaches. No bleeding. OBJECTIVE VITALS: Afebrile. Vital signs noted per electronic record. GENERAL: No acute distress. Calm. HEENT: Normocephalic and atraumatic. NECK: Supple. Throat midline. LUNGS: Bilateral air entry. Decreased breath sounds throughout. CARDIOVASCULAR: S1 and S2. No murmurs, rubs or gallops. ABDOMEN: Soft and nontender. EXTREMITIES: No clubbing. No cyanosis. There is trace edema. INTEGUMENT: No rash. No purpura. LABS: Potassium 4.2, BUN , creatinine 0.9. White count 16, hematocrit 32 and platelets 390,000. IMPRESSION AND PLAN 1. Postoperative state: Status post low perineal resection, left hemicolectomy, omental mass resection. 2. Recurrent rectal carcinoma. 3. Urinary retention history, possibly better. 4. Urinary incontinence: Complex urinary syndrome. Rule out other processes. 5. Leukocytosis: Not otherwise specified. 6. Abdominal infection. Change antibiotic to Merrem. Follow up closely. PICC line will be placed. Will consider IV antibiotics at home. Continue lower abdominal and local wound per surgeon. Job#: [id number] UT
[2018-08-09] MEDS: ENOXAPARIN SOD INJ 40 MG/0.4 ML SYR SC SCH (17:20)
--- NOTE | 2018-08-09 19:25 | NUR ---
Patient received lying in bed. at bedside. AAO x 3. No complaints of pain. No signs of respiratory distress. Polanco catheter draining clear pale yellow urine. CHANCE drain in place with serosanguineous drainage. Colostomy bag with liquid stool. IVF infusing at 100 cc/hr. Patient instructed to call for assistance when needed. Call light within reach.
[2018-08-09] MEDS ORDERED: MEROPENEM 1 GM VIAL ONE (20:36)
[2018-08-09] MEDS ORDERED: TAMSULOSIN HCL 0.4 MG CAP PO SCH (21:00)
[2018-08-09] MEDS: MEROPENEM 1GRAM 1 GM in SODIUM CHLORIDE 0.9% 100 ML 100 ML IV SCH (22:00)
[2018-08-10] VITALS (8 sets, daily range): BP systolic 111–156; BP diastolic 72–88
--- NOTE | 2018-08-10 01:09 | NUR ---
Urine specimen sent to laboratory for analysis.
[2018-08-10] MEDS: HYDROCODONE/APAP 10MG-325MG TAB PO PRN ×4 (02:24→23:18)
[2018-08-10] MEDS ORDERED: MEROPENEM 1 GM VIAL ONE ×3 (04:42→21:33)
[2018-08-10] MEDS: HYDROMORPHONE 2MG/ML 2 MG/ML ML IV PRN ×4 (04:50→18:15)
[2018-08-10] MEDS: MEROPENEM 1GRAM 1 GM in SODIUM CHLORIDE 0.9% 100 ML 100 ML IV SCH ×3 (06:12→21:46)
[2018-08-10 06:37] LABS: BASOPHILS % 0.3 % (0.0-1.0); EOSINOPHILS # (AUTO) 0.3 (0.0-0.4); EOSINOPHILS % 2.1 % (0.0-6.0); HEMATOCRIT 28.9 % (38.2-49.6); HEMOGLOBIN 9.1 g/dL (14.0-18.0); LYMPHOCYTES # (AUTO) 1.5 (1.0-3.2); LYMPHOCYTES % 11.1 % (18.0-39.1); MEAN CORPUSCULAR HEMOGLOBIN 26.9 pg (28-32); MEAN CORPUSCULAR HGB CONC 31.5 g/dL (31-35); MEAN CORPUSCULAR VOLUME 85.5 fL (81-99); MONOCYTES # (AUTO) 1.2 (0.2-0.8); MONOCYTES % 9.1 % (4.4-11.3); NEUTROPHILS # (AUTO) 9.9 (2.1-6.9); NEUTROPHILS % 76.2 % (38.7-80.0); PLATELET COUNT 362 x10e3/uL (140-360); RED BLOOD COUNT 3.38 x10e6/uL (4.3-5.7); RED CELL DISTRIBUTION WIDTH 14.6 % (11.7-14.4)
[2018-08-10 06:45] LABS: ANION GAP 10.9 mmol/L (8-16); BLOOD UREA NITROGEN 8 mg/dL (7-26); BUN/CREATININE RATIO 11 (6-25); CALCIUM 8.5 mg/dL (8.4-10.2); CARBON DIOXIDE 26 mmol/L (22-29); CHLORIDE 100 mmol/L (98-107); CREATININE, SERUM 0.75 mg/dL (0.72-1.25); EST GLOMERULAR FILTRATION RATE > 60 ML/MIN (60-); GLUCOSE 121 mg/dL (74-118); MAGNESIUM 1.5 MG/DL (1.3-2.1); POTASSIUM 3.9 mmol/L (3.5-5.1); SODIUM 133 mmol/L (136-145)
[2018-08-10] MEDS: DEXTROSE 5%/0.45% SOD CHL 1,000 ML IV SCH ×2 (07:54→13:18)
[2018-08-10] MEDS: BUPROPION HCL SR 150 MG TAB PO SCH (07:54)
[2018-08-10] MEDS: ONDANSETRON HCL INJ 2 MG/ML VIAL IV PRN (13:18)
--- NOTE | 2018-08-10 14:05 | Progress Note ---
DATE: August 10, 2018 PULMONARY MEDICINE PROGRESS NOTE SUBJECTIVE: Mr. Mathur was seen and examined at the bedside. He continues to have slow progress. He is still managing through the pain. Polanco catheter was placed in yesterday, and he tells me 400 mL was out automatically after Polanco catheter placement. He is off IV fluids when I see him. He is on room air, FIO2. REVIEW OF SYSTEMS: No headaches, no rash. OBJECTIVE VITAL SIGNS: Afebrile. Vital signs noted per electronic record. GENERAL: In no acute distress, alert and calm. HEENT: Normocephalic, atraumatic. NECK: Supple. Throat midline. LUNGS: Bilateral air entry, decreased breath sounds, mostly clear. CARDIOVASCULAR: S1 and S2 and no murmurs, rubs or gallops. ABDOMEN: Soft and nontender. EXTREMITIES: No clubbing or cyanosis. There is no edema. INTEGUMENT: No rash. There are postoperative changes to the abdomen. IMPRESSION 1. Postoperative state, status post blood work, perineal resection, left hemicolectomy, omental mass resection and resection of recurrent carcinoma. 2. Recurrent rectal carcinoma. 3. Abscess, small, status post drainage with infection. 4. Obesity. 5. Mild anxiety. PLAN: At this time, we will continue current treatment. The patient will have followup antibiotics. I have written a home antibiotic prescription. He had a PICC line that was placed. The patient will have wound care orders that we need to give to case management for expectant home health nursing to help with. Continue DVT prophylaxis for now. Mobilize the patient if possible. Continue Polanco catheter. Follow up with for recommendations. Job#: [id number]
--- NOTE | 2018-08-10 16:45 | NUR ---
Spoke to pt at bedside regarding home IV abx and home health order. Pt signed choice form for [facility] for iv abx and said he was agreeable to have [facility] set up home health with any company that takes his insurance. Signed choice filed in chart. Copy to pt. Pt stated told him possible discharge on Monday. Gave pt CM's business card for any questions/concerns. Also wrote contact information on [employer] board. CM informed pt of business hours.
[2018-08-10] MEDS: TAMSULOSIN HCL 0.4 MG CAP PO SCH (21:46)
[2018-08-11] VITALS (8 sets, daily range): BP systolic 113–138; BP diastolic 66–76
[2018-08-11] MEDS: DEXTROSE 5%/0.45% SOD CHL 1,000 ML IV SCH ×3 (00:55→20:53)
[2018-08-11] MEDS: HYDROMORPHONE 2MG/ML 2 MG/ML ML IV PRN ×5 (04:37→23:50)
[2018-08-11] MEDS: MEROPENEM 1GRAM 1 GM in SODIUM CHLORIDE 0.9% 100 ML 100 ML IV SCH ×3 (05:03→21:07)
[2018-08-11] MEDS: HYDROCODONE/APAP 10MG-325MG TAB PO PRN ×4 (05:30→21:05)
--- NOTE | 2018-08-11 06:19 | NUR ---
D/C valencia with tip in place. 10cc of n/s drawn from balloon. No bleeding or pain.
--- NOTE | 2018-08-11 06:19 | NUR ---
IV abx order faxed to [facility] at [phone]
[2018-08-11] MEDS: BUPROPION HCL SR 150 MG TAB PO SCH (08:23)
[2018-08-11] MEDS: TAMSULOSIN HCL 0.4 MG CAP PO SCH ×2 (08:23→21:07)
--- NOTE | 2018-08-11 12:29 | Progress Note ---
DATE: August 10, 2018 SUBJECTIVE: Urologically speaking today, the patient is stable. His scrotum is normal. Penis is normal. I checked his incision. He has got an area of dehiscence, approximately an inch and a half with packing on it. There is some redness around it. Otherwise, it looks pretty clean. The patient urinated. I measured his PVR; PVR of 32 mL. The patient stated that he is urinating better, feels like he is emptying, but he states that he still has some urgency and urge incontinence. RECOMMENDATION: Flomax one tablet p.o.b.i.d. I will leave the prescription and I have told the patient to call me to follow up in the office when he is discharged in the next 2 to 3 weeks. Job#: [id number] JOSEFINA
[2018-08-11] MEDS: ONDANSETRON HCL INJ 2 MG/ML VIAL IV PRN (15:45)
[2018-08-12] VITALS (8 sets, daily range): BP systolic 118–161; BP diastolic 64–87
[2018-08-12] MEDS: HYDROMORPHONE 2MG/ML 2 MG/ML ML IV PRN ×4 (04:17→21:24)
[2018-08-12 04:44] LABS: BASOPHILS # (AUTO) 0.1 (0.0-0.1); BASOPHILS % 0.6 % (0.0-1.0); EOSINOPHILS # (AUTO) 0.5 (0.0-0.4); EOSINOPHILS % 4.7 % (0.0-6.0); HEMATOCRIT 30.6 % (38.2-49.6); HEMOGLOBIN 9.2 g/dL (14.0-18.0); LYMPHOCYTES # (AUTO) 1.9 (1.0-3.2); LYMPHOCYTES % 19.2 % (18.0-39.1); MEAN CORPUSCULAR HEMOGLOBIN 26.3 pg (28-32); MEAN CORPUSCULAR HGB CONC 30.1 g/dL (31-35); MEAN CORPUSCULAR VOLUME 87.4 fL (81-99); MONOCYTES # (AUTO) 0.9 (0.2-0.8); MONOCYTES % 8.7 % (4.4-11.3); NEUTROPHILS # (AUTO) 6.5 (2.1-6.9); NEUTROPHILS % 64.7 % (38.7-80.0); PLATELET COUNT 419 x10e3/uL (140-360); RED CELL DISTRIBUTION WIDTH 14.6 % (11.7-14.4)
--- NOTE | 2018-08-12 04:50 | Progress Note ---
DATE: August 11, 2018 PULMONARY MEDICINE PROGRESS NOTE SUBJECTIVE: Mr. Mathur was seen and examined at bedside. He is starting to move a little bit more briskly. He is independent on getting out and walking on room air FiO2. He still has some pain. Wound care is being done. REVIEW OF SYSTEMS: No double vision. No blindness. OBJECTIVE VITAL SIGNS: Afebrile. Vital signs noted per electronic record. GENERAL: In no acute distress, alert and calm. HEENT: Normocephalic, atraumatic. NECK: Supple. Throat midline. LUNGS: Bilateral air entry, decreased breath sounds, but otherwise clear. CARDIOVASCULAR: S1 and S2. No murmurs, rubs, or gallops. ABDOMEN: Soft and nontender. EXTREMITIES: No clubbing. No cyanosis. There is only trace edema. INTEGUMENT: No rash or purpura. LABORATORY DATA: No new updates. IMPRESSION 1. History of urinary retention. 2. Urge incontinence. 3. Postoperative state, status post lower perineal resection, left hemicolectomy, omental mass resection, and resection of recurrent rectal carcinoma. 4. Recurrent rectal carcinoma. 5. Small associated abscess, status post drainage. 6. Obesity. PLAN: Continue to mobilize the patient. Continue IV antibiotics. We will continue to work to get the IV antibiotics authorized for home use. Furthermore, we got wound care orders for when the patient goes home. Follow closely. Recheck CBC in the morning and ensure white count comes down. ordered Flomax. Job#: [id number] SUE
[2018-08-12] MEDS: HYDROCODONE/APAP 10MG-325MG TAB PO PRN ×3 (05:00→16:38)
[2018-08-12] MEDS: MEROPENEM 1GRAM 1 GM in SODIUM CHLORIDE 0.9% 100 ML 100 ML IV SCH ×2 (05:19→15:47)
[2018-08-12 07:43] LABS: EOSINOPHILS % (MANUAL) 5 % (0-7); LYMPHOCYTES % (MANUAL) 16 % (19-48); MONOCYTES % (MANUAL) 11 % (3.4-9.0); NEUTROPHILS % (MANUAL) 68 % (40-74); PLATELET ESTIMATE SLIGHTLY INCREASED; PLATELET MORPHOLOGY COMMENT NORMAL; RBC MORPHOLOGY COMMENT NORMAL
[2018-08-12] MEDS: TAMSULOSIN HCL 0.4 MG CAP PO SCH ×2 (08:36→21:23)
[2018-08-12] MEDS: BUPROPION HCL SR 150 MG TAB PO SCH (08:36)
[2018-08-12] MEDS: DEXTROSE 5%/0.45% SOD CHL 1,000 ML IV SCH ×2 (09:55→20:45)
[2018-08-12] MEDS ORDERED: MEROPENEM1 GM IV (16:06)
[2018-08-12] MEDS ORDERED: FLOMAX0.4 MG PO (16:06)
--- NOTE | 2018-08-12 17:01 | Progress Note ---
DATE: August 12, 2018 PULMONARY MEDICINE PROGRESS NOTE SUBJECTIVE: Mr. Mathur was seen and examined at bedside. He continues to have steady progress. White blood count has come down to normal. He is on room air FiO2. He is eating well. He is having bowel movements. REVIEW OF SYSTEMS: No diarrhea, no bleeding. OBJECTIVE VITAL SIGNS: Afebrile. Vital signs noted per electronic record. GENERAL: In no acute distress, alert and calm. HEENT: Normocephalic, atraumatic. NECK: Supple. Throat midline. LUNGS: Bilateral air entry, clear. CARDIOVASCULAR: S1, S2. No murmurs, rubs, or gallops. ABDOMEN: Soft, nontender. EXTREMITIES: No clubbing. No cyanosis. There is 1+ edema in the legs. INTEGUMENT: No rash or purpura. LABORATORY DATA: White count 19, hematocrit 31, platelets 419. IMPRESSION AND PLAN 1. Recurrent rectal carcinoma. 2. Status post low perineal resection of rectal carcinoma, left hemicolectomy, exploratory laparotomy and omental mass resection. 3. Obesity. 4. Urinary incontinence, history of obstructive uropathy status post surgical procedure and some urge incontinence. Continue local wound care. Continue IV antibiotics for infection. We will continue to await clearance with insurance that his antibiotics have been arranged. Continue to mobilize as soon as possible. Remains on the medication for his prostate and his incontinence. Job#: [id number] JEET
[2018-08-12] MEDS: MEROPENEM 1GM 100 ML IV SCH (22:54)
[2018-08-13 01:15] VITALS: BP 131/87
[2018-08-13] MEDS: HYDROMORPHONE 2MG/ML 2 MG/ML ML IV PRN ×3 (01:47→14:15)
[2018-08-13] MEDS: HYDROCODONE/APAP 10MG-325MG TAB PO PRN ×3 (03:18→12:19)
[2018-08-13] MEDS: DEXTROSE 5%/0.45% SOD CHL 1,000 ML IV SCH (05:23)
[2018-08-13 05:32] VITALS: BP 141/85
[2018-08-13] MEDS: MEROPENEM 1GM 100 ML IV SCH ×2 (06:04→14:13)
[2018-08-13] MEDS: TAMSULOSIN HCL 0.4 MG CAP PO SCH (09:00)
[2018-08-13] MEDS: BUPROPION HCL SR 150 MG TAB PO SCH (09:00)
[2018-08-13 09:22] VITALS: BP 125/73
--- NOTE | 2018-08-13 10:58 | NUR ---
MICHAEL spoke with Maddison from [facility]. Pt's IV abx is covered at 100%. Home health set up with [facility] [phone]. Wound care orders sent. If pt discharges today, home health will be able to see him at 5pm. Emmie RN with [facility] will be by today to do bedside teaching on iv abx. [facility] for wound care [id number] [place], [place] [address] [facility] for IV antibiotics [address] [place] [address] Information above printed and given to pt.
[2018-08-13 12:25] VITALS: BP 125/73
--- NOTE | 2018-08-13 14:16 | NUR ---
Patient alert and responsive, VSS, no resp distress, patient seen this morning by surgeon, removed CHANCE drain and educated on wound care and colostomy care and demonstrated care appropriately as dressing changed maintaining infection protocol, medicated for pain, provided with prescriptions and patient discharged with home health for wound care. Wound care nurse and IV abx infusion nurse saw patient and educated patient.
--- NOTE | 2018-08-13 15:07 | Discharge Summary ---
ADMISSION DIAGNOSIS: Recurrent carcinoma of the rectum. DISCHARGE DIAGNOSIS: Recurrent carcinoma of the rectum with perineal wound infection and pelvic abscess. PRINCIPAL PROCEDURES 1. Abdominoperineal resection of rectum. 2. Incision and drainage of perineal wound with drainage of pelvic abscess. HISTORY OF PRESENT ILLNESS: The patient is a 58-year-old male who about a little more than a year ago underwent low anterior resection of the colon for a carcinoma of the rectum. He had persistent problems with a pelvic abscess and then was found to have an ulcerated area that was recurrent carcinoma. HOSPITAL COURSE: The patient was admitted to the hospital and underwent surgery the same day as admission. He had abdominoperineal resection of the rectum and also left colon resection with a partial omentectomy. Postoperatively the patient was stable, initially monitored in the intensive care unit. He was seen in consultation by Dr. Moss. He was started on a liquid diet, which he tolerated without problem. Diet was advanced without problem. However, he developed purulent drainage, first from the pelvic drain and then through the perineum, and the perineal wound opened and there was purulent drainage. He was returned to surgery on August 08, 2018, where he had I&D of the perineal wound with the drainage of pelvic abscess. Postoperatively the patient was improved. [place] drains were placed at this time, and the wound was partially closed. Two Jude drains were removed prior to discharge, and he was sent home with two [place] drains still in place as well as a wound which was slightly open in the lower portion because he had some drainage. The closed suction drain was removed from the abdomen prior to discharge. He was discharged home on the 14th hospital day. At time of discharge, he was afebrile, tolerating diet. Colostomy was functioning. Wounds were clean. There was minimal drainage from the perineal wound. He will go home with IV antibiotics, meropenem for 12 more days. He will follow up with Dr. Lindo 2 days after discharge. He was sent home in satisfactory condition on a regular diet. ASHKAN LINDO MD Job#: [id number] EV
--- NOTE | 2018-08-13 23:45 | Progress Note ---
DATE: August 13, 2018 PULMONARY MEDICINE PROGRESS NOTE SUBJECTIVE: Mr. Mathur was seen and examined at bedside. He continues to have steady progress. Patient with gradual decrease in pain, although he still requires pain medicines. No susan bleeding. He still has some urinary incontinence. He is eating well. I discussed with [facility] which has the medicine approved. REVIEW OF SYSTEMS: No headaches. OBJECTIVE VITAL SIGNS: Afebrile. Vital signs noted per the chart record. GENERAL: No acute distress. HEENT: Normocephalic, atraumatic. NECK: Supple. LUNGS: Bilateral air entry. CARDIOVASCULAR: S1, S2. ABDOMEN: Soft. EXTREMITIES: There is 1+ edema. INTEGUMENT: No rash. IMPRESSIONS 1. Rectal carcinoma, recurrent. 2. Postoperative state status post low perineal resection, left hemicolectomy, omental mass resection, and exploratory laparotomy. 3. Weakness. 4. Lower extremity edema. 5. Surgical bed infection, expected. PLAN: Continue antibiotics as outpatient. Continue to mobilize again. Pain medicines have been written by surgeon. Patient pressure on the legs with edema. He was given option of Lasix, but he does not want to because of the urinary incontinence issues. We will follow along closely. Job#: [id number]
[2018-08-31] MEDS ORDERED: NORCO 10-325 T1 EACH PO (10:52)
== END 2018-08-13 14:58 | disposition home or self-care (01) | DRG 330 ==
LOC: OR 07:09 → PACU V 14:27 → MED/SURG 18:43 → MED/SURG2 08-09 16:40
PROVIDERS: ADMIT Surgery; ATTEND Surgery
PROC: 0DTN0ZZ Resection of Sigmoid Colon, Open Approach (ICD-10-PCS; 2018-07-31)
PROC: 0DTP0ZZ Resection of Rectum, Open Approach (ICD-10-PCS; 2018-07-31)
PROC: 0DTQ0ZZ Resection of Anus, Open Approach (ICD-10-PCS; 2018-07-31)
PROC: 0DTG0ZZ Resection of Left Large Intestine, Open Approach (ICD-10-PCS; 2018-07-31)
PROC: 0DBU0ZZ Excision of Omentum, Open Approach (ICD-10-PCS; principal; 2018-07-31 09:00)
PROC: 0W9M0ZX Drainage of Male Perineum, Open Approach, Diagnostic (ICD-10-PCS; 2018-08-08)
DX: C19 Malignant neoplasm of rectosigmoid junction (principal); T81.43XA Infection following a procedure, organ and space surgical site, initial encounter; E66.9 Obesity, unspecified; I10 Essential (primary) hypertension; B95.2 Enterococcus as the cause of diseases classified elsewhere; D64.9 Anemia, unspecified; N34.2 Other urethritis; R33.8 Other retention of urine; F17.210 Nicotine dependence, cigarettes, uncomplicated; B96.20 Unspecified Escherichia coli [E. coli] as the cause of diseases classified elsewhere; Z16.12 Extended spectrum beta lactamase (ESBL) resistance
CPT/HCPCS: 36415; 36569; 71045; 74019; 80048; 80053; 80202; 82948; 83605; 83735; 85007; 85025; 85027; 86850; 86900; 87071; 87075; 87086; 87186; 87205; 88305; 88307; 88309; 88331; 93005; J0461; J0694; J1100; J1650; J1885; J2001; J2185; J2250; J2270; J2405; J2543; J3370; J7120

== ENCOUNTER → 2018-08-31 | Day surgery (SDC) | payer BC ==
[2018-08-29 11:16] LABS: BASOPHILS # (AUTO) 0.1 (0.0-0.1); BASOPHILS % 0.7 % (0.0-1.0); EOSINOPHILS # (AUTO) 0.4 (0.0-0.4); EOSINOPHILS % 4.7 % (0.0-6.0); HEMATOCRIT 37.5 % (38.2-49.6); HEMOGLOBIN 11.6 g/dL (14.0-18.0); LYMPHOCYTES # (AUTO) 2.6 (1.0-3.2); LYMPHOCYTES % 32.1 % (18.0-39.1); MEAN CORPUSCULAR HEMOGLOBIN 26.6 pg (28-32); MEAN CORPUSCULAR HGB CONC 30.9 g/dL (31-35); MONOCYTES # (AUTO) 0.9 (0.2-0.8); MONOCYTES % 11.2 % (4.4-11.3); NEUTROPHILS # (AUTO) 4.1 (2.1-6.9); NEUTROPHILS % 50.7 % (38.7-80.0); PLATELET COUNT 237 x10e3/uL (140-360); RED BLOOD COUNT 4.36 x10e6/uL (4.3-5.7); RED CELL DISTRIBUTION WIDTH 14.9 % (11.7-14.4)
[~2018-08-31] MED LIST changes: +BUPIVACAINE 0.25% 30ML SDV INJ ONE; +BUPIVACAINE 0.5%/EPI 30 ML SDV INJ ONE; +CEFTRIAXONE SOD 1 GM/NS 50 ML 100 ML IV ONE; +DEXAMETHASONE SOD PHOS INJ 4 MG/ML VIAL ONE; +FENTANYL CITRATE/PF 100MCG/2 ML INJ ONE; +HYDROMORPHONE 2MG/ML 2 MG/ML ML ONE; +LIDOCAINE HCL 2% JELLY 5 ML TUBE ONE; +LIDOCAINE HCL 2% LOCAL INJ 5 ML SDV VIAL INJ ONE; +MEROPENEM1 GM IV; +MIDAZOLAM HCL 2 MG/2 ML VIAL ONE; +ONDANSETRON HCL INJ 2 MG/ML VIAL ONE; +PROPOFOL IV EMULSION 10 MG/ML 20 ML VIAL ONE; +SEVOFLURANE INHAL SOLN 250 ML PEN BTL ONE
--- NOTE | 2018-08-31 11:20 | NUR ---
SPIRITUAL CARE - Pre-Surgery Assessment: Pt in bed. Pt's at bedside. Pt reported supportive attention from family and friends. Intervention: Provided pastoral presence, hospitality, sympathetic listening, and prayer. Reminded pt with availability of railway yard assistant while hospitalized. Outcome: Pt expressed appreciation for visit. No need for follow up indicated at this time. NANCY Guzmanlain Spiritual Care Department O: [phone] Pager: [phone] ([phone] number calling from)
[2018-08-31 15:00] VITALS: BP 127/87
--- NOTE | 2018-08-31 16:34 | Operative Report ---
DATE OF PROCEDURE: August 31, 2018 PREOPERATIVE DIAGNOSES 1. Open perineal wound. 2. History of carcinoma of rectum. POSTOPERATIVE DIAGNOSES 1. Open perineal wound. 2. History of carcinoma of rectum. PROCEDURES: Irrigation and biopsy with secondary closure of perineal wound. KNOCKDOWN MAN: None. ANESTHESIA: General. INDICATIONS AND FINDINGS: The patient is a 58-year-old male with history of carcinoma of rectum and recent abdominoperineal resection. He had breakdown of the perineal wound with a large amount of drainage. At surgery there was some whitish tissue within the pelvis which was biopsied. There was serous fluid within the pelvic cavity which was removed. Granulation tissue was cauterized, and the wound was closed without difficulty. TECHNIQUE: After adequate general endotracheal anesthesia, with the patient in lithotomy position, the perineum was prepped and draped in sterile fashion with Betadine solution. There was an open perineal wound which was about 7 cm in length. There was serous fluid, which was drained. A sample was taken for culture and sensitivity. Within the wound, there was some whitish tissue, some of which was removed and submitted for pathology and some which was cauterized. Hemostasis was achieved with electrocautery. A 19-Estonian Daniel drain was then placed into the pelvic cavity through a separate stab wound incision. The wound was irrigated further with saline and closed in layers. The deeper tissues were closed with 2-0 Vicryl in a running fashion, and the skin was closed with interrupted sutures of 4-0 Vicryl. Sterile dressing was applied. The patient tolerated the procedure well. Estimated blood loss was 25 mL. There were no complications. All counts were correct. Patient was taken to the recovery room in satisfactory condition. Job#: [id number]
== END | disposition home or self-care (01) ==
LOC: OR 10:30
PROVIDERS: ATTEND Surgery
DX: C76.3 Malignant neoplasm of pelvis (principal); S31.000A Unspecified open wound of lower back and pelvis without penetration into retroperitoneum, initial encounter; I10 Essential (primary) hypertension; I49.3 Ventricular premature depolarization; N20.0 Calculus of kidney; E66.01 Morbid (severe) obesity due to excess calories; F32.9 Major depressive disorder, single episode, unspecified; F17.210 Nicotine dependence, cigarettes, uncomplicated; X58.XXXA Exposure to other specified factors, initial encounter; Z01.812 Encounter for preprocedural laboratory examination; Z68.41 Body mass index [BMI] 40.0-44.9, adult; Z92.21 Personal history of antineoplastic chemotherapy; Z92.3 Personal history of irradiation
CPT/HCPCS: 13160; 36415; 85025; 87071; 87075; 87186; 87205; 88305; J0696; J1100; J1170; J2001 ×2; J2250; J2405; J2704; 88304

== ENCOUNTER → 2018-09-19 | Outpatient (CLI) | payer BC ==
[~2018-09-19] MED LIST changes: -BUPIVACAINE 0.25% 30ML SDV INJ ONE; -BUPIVACAINE 0.5%/EPI 30 ML SDV INJ ONE; -CEFTRIAXONE SOD 1 GM/NS 50 ML 100 ML IV ONE; -DEXAMETHASONE SOD PHOS INJ 4 MG/ML VIAL ONE; -FENTANYL CITRATE/PF 100MCG/2 ML INJ ONE; -HYDROMORPHONE 2MG/ML 2 MG/ML ML ONE; -LIDOCAINE HCL 2% JELLY 5 ML TUBE ONE; -LIDOCAINE HCL 2% LOCAL INJ 5 ML SDV VIAL INJ ONE; -MIDAZOLAM HCL 2 MG/2 ML VIAL ONE; -ONDANSETRON HCL INJ 2 MG/ML VIAL ONE; -PROPOFOL IV EMULSION 10 MG/ML 20 ML VIAL ONE; -SEVOFLURANE INHAL SOLN 250 ML PEN BTL ONE
[2018-09-19 11:18] LABS: INR 0.95; PROTHROMBIN TIME 13.6 seconds (11.9-14.5)
[2018-09-19 11:19] LABS: PARTIAL THROMBOPLASTIN TIME 33.7 seconds (23.8-35.5)
[2018-09-19 11:26] LABS: BLOOD UREA NITROGEN 12 mg/dL (7-26); BUN/CREATININE RATIO 16 (6-25); CREATININE, SERUM 0.77 mg/dL (0.72-1.25); EST GLOMERULAR FILTRATION RATE > 60 ML/MIN (60-)
--- NOTE | 2018-09-19 11:45 | NUR ---
ASSESSMENT: Spiritual distress Pt frustrated by ongoing complications related to illness. Pt's at bedside. Pt states illness has affected him emotionally. Pt hopeful procedure will be successful. Intervention: Provided empathic listening. Facilitated illness update. Provided prayer. Outcome: Will continue to follow as able. NANCY HURT Outside Property Agent Spiritual Care Department O: [phone] Pager: [phone] ([phone] number calling from)
--- NOTE | 2018-09-19 12:41 | Diagnostic Imaging Report ---
EXAMINATION: CHEST XRAY LINE PLACEMENT INDICATION: Check PICC placement COMPARISON: Chest radiograph 08/09/2018. FINDINGS: TUBES and LINES: Interval removal of left-sided PICC. Interval placement of right-sided PICC which terminates in the expected location of the lower SVC. LUNGS: Lungs are well inflated. Mild patchy bibasilar opacities, likely atelectasis. There is no evidence of pneumonia or pulmonary edema. PLEURA: No pleural effusion or pneumothorax. HEART AND MEDIASTINUM: Unchanged mild enlargement of the cardiac silhouette. BONES AND SOFT TISSUES: No acute osseous lesion. Soft tissues are unremarkable. UPPER ABDOMEN: No free air under the diaphragm. IMPRESSION: Interval placement of right-sided PICC which terminates in the expected location of the lower SVC. Interval removal of left-sided PICC. No evidence of pneumothorax. Signed by: Dr. Esvin Capps MD on 09/19/2018 12:38 PM
== END ==
LOC: DX 10:34
PROVIDERS: ATTEND Surgery
DX: A49.8 Other bacterial infections of unspecified site (principal)
CPT/HCPCS: 36415; 36569; 71045; 82565; 84520; 85049; 85610; 85730

== ENCOUNTER → 2018-10-25 | Day surgery (SDC) | payer BC ==
[2018-10-23 11:45] LABS: BASOPHILS # (AUTO) 0.1 (0.0-0.1); BASOPHILS % 0.6 % (0.0-1.0); EOSINOPHILS # (AUTO) 0.3 (0.0-0.4); EOSINOPHILS % 3.1 % (0.0-6.0); HEMATOCRIT 41.9 % (38.2-49.6); HEMOGLOBIN 13.3 g/dL (14.0-18.0); LYMPHOCYTES # (AUTO) 2.5 (1.0-3.2); LYMPHOCYTES % 28.6 % (18.0-39.1); MEAN CORPUSCULAR HEMOGLOBIN 26.1 pg (28-32); MEAN CORPUSCULAR HGB CONC 31.7 g/dL (31-35); MEAN CORPUSCULAR VOLUME 82.2 fL (81-99); MONOCYTES # (AUTO) 0.8 (0.2-0.8); MONOCYTES % 9.1 % (4.4-11.3); NEUTROPHILS % 58.4 % (38.7-80.0); PLATELET COUNT 230 x10e3/uL (140-360); RED CELL DISTRIBUTION WIDTH 15.9 % (11.7-14.4)
[2018-10-23 12:02] LABS: ANION GAP 12.9 mmol/L (8-16); BLOOD UREA NITROGEN 15 mg/dL (7-26); BUN/CREATININE RATIO 16 (6-25); CALCIUM 9.8 mg/dL (8.4-10.2); CARBON DIOXIDE 23 mmol/L (22-29); CHLORIDE 105 mmol/L (98-107); CREATININE, SERUM 0.92 mg/dL (0.72-1.25); EST GLOMERULAR FILTRATION RATE > 60 ML/MIN (60-); GLUCOSE 116 mg/dL (74-118); POTASSIUM 3.9 mmol/L (3.5-5.1); SODIUM 137 mmol/L (136-145)
[~2018-10-25] MED LIST changes: +FENTANYL CITRATE/PF 100MCG/2 ML INJ ONE; +GLYCOPYRROLATE INJ 1MG/ 5 ML SYR ONE; +HEPARIN SOD (PORCINE) 1000 UNIT/ML 30ML ONE; +HEPARIN SOD (PORCINE) 1000 UNIT/ML SDV ONE; +LIDOCAINE HCL 1% LOCAL INJ 20 ML VIAL ONE; +LIDOCAINE HCL 2% LOCAL INJ 5 ML SDV VIAL INJ ONE; +MIDAZOLAM HCL 2 MG/2 ML VIAL ONE; +NEOSTIGMINE 5 MG/5ML SYR ONE; +ONDANSETRON HCL INJ 2MG/ML 2ML 2 MG/ML VIAL ONE; +PROPOFOL IV EMULSION 10 MG/ML 20 ML VIAL ONE; +ROCURONIUM BROMIDE 10 MG/ML 5ML VIAL ONE; +SEVOFLURANE INHAL SOLN 250 ML PEN BTL ONE; +SODIUM CHLORIDE 0.9% 100 ML ONE; +SUCCINYLCHOLINE 200 MG/10 ML SYR ONE; +VANCOMYCIN 1GM/NS 250 ML 250 ML ONE
--- NOTE | 2018-10-25 15:04 | Diagnostic Imaging Report ---
EXAMINATION: CHEST SINGLE (PORTABLE) INDICATION: Line placement. COMPARISON: Chest radiograph 09/19/2018. FINDINGS: TUBES and LINES: Interval removal of right-sided PICC. Interval placement of a right subclavian port with catheter tip terminating near the cavoatrial junction. LUNGS: Lungs are not well inflated. Bilateral interstitial opacities, left greater than right. Patchy left basilar opacity, likely atelectasis. PLEURA: No pleural effusion or pneumothorax. HEART AND MEDIASTINUM: The cardiomediastinal silhouette is unremarkable. BONES AND SOFT TISSUES: No acute osseous lesion. Soft tissues are unremarkable. UPPER ABDOMEN: No free air under the diaphragm. IMPRESSION: Interval placement of right subclavian port with tip terminating near the cavoatrial junction. No evidence of pneumothorax. Low lung volumes with central vascular congestion, cannot exclude mild pulmonary interstitial edema. Signed by: Dr. Esvin Capps MD on 10/25/2018 3:01 PM
[2018-10-25 15:15] VITALS: BP 142/78
--- NOTE | 2018-10-25 22:50 | Operative Report ---
DATE OF PROCEDURE: 10/25/2018 SURGEON: Balaji Lindo MD PREOPERATIVE DIAGNOSIS: Carcinoma of the rectum. POSTOPERATIVE DIAGNOSIS: Carcinoma of the rectum. PROCEDURE: Placement of the right subclavian vein, subcutaneous venous access port. GUEST SERVICE REPRESENTATIVE: None. ANESTHESIA: General. INDICATIONS AND FINDINGS: The patient is a [id number], who has carcinoma of the rectum and is treated with chemotherapy. tip of the catheter was seen to be in the superior vena cava. TECHNIQUE: After adequate general anesthesia, the patient in the supine position. The subclavian area was prepped and draped in a sterile fashion with ChloraPrep solution. The right subclavian vein was aspirated. J-wire introduced, passed easily without superior vena cava was confirmed with fluoroscopy. Incision was then made in the deltopectoral groove with the wire exiting through the wound. A subcutaneous pocket was created in the inferior portion of the wound. A peel-away introducer sheath and dilator was passed over the guidewire and the catheter which had been flushed with heparinized saline was passed through this sheath and position of the superior vena cava under fluoroscopy. Catheter was aspirated and was found to aspirate blood freely, was then flushed with heparinized saline. It was cut to appropriate length, connected to the subcutaneous port which had also been flushed with heparinized saline. The port was then placed into the subcutaneous pocket and with sutures of 2-0 Ethibond. The entire port and catheter were inspected with fluoroscopy. There were no kinks and the catheter tip was seen to be in the superior vena cava. The wound was inspected for hemostasis, which was seen to be adequate. Wound was then closed with 3-0 Vicryl subcutaneous tissue and 4-0 Vicryl subcuticular to the skin. The port was accessed percutaneously with a Mike needle and was found to aspirate blood freely, was then flushed with heparinized saline and the needle was removed. Steri-Strips and sterile dressing were applied to the wound. The patient tolerated the procedure well. Estimated blood loss was less than 5 mL. There were no complications. All counts were correct. The patient was taken to the recovery room in satisfactory condition. Balaji W MD JASSON Lindo/AMY /[id number]
== END | disposition home or self-care (01) ==
LOC: OR 09:30
PROVIDERS: ATTEND Surgery
DX: C20 Malignant neoplasm of rectum (principal); Z01.812 Encounter for preprocedural laboratory examination; Z87.442 Personal history of urinary calculi; F32.9 Major depressive disorder, single episode, unspecified
CPT/HCPCS: 36415; 36561; 71045; 77001; 80048; 85025; C1751; J1644; J2001; J2250; J2405; J2704; J3370; J3490; J7050

== ENCOUNTER 2020-02-11 06:33 | Inpatient (IN) | payer BC, OTHER ==
[~2020-02-11] VITALS: Ht 190.5 cm; Wt 131.1 kg
[~2020-02-11 06:33] MED LIST changes: -FENTANYL CITRATE/PF 100MCG/2 ML INJ ONE; -GLYCOPYRROLATE INJ 1MG/ 5 ML SYR ONE; -HEPARIN SOD (PORCINE) 1000 UNIT/ML 30ML ONE; -HEPARIN SOD (PORCINE) 1000 UNIT/ML SDV ONE; -LIDOCAINE HCL 1% LOCAL INJ 20 ML VIAL ONE; -LIDOCAINE HCL 2% LOCAL INJ 5 ML SDV VIAL INJ ONE; -MIDAZOLAM HCL 2 MG/2 ML VIAL ONE; -NEOSTIGMINE 5 MG/5ML SYR ONE; -ONDANSETRON HCL INJ 2MG/ML 2ML 2 MG/ML VIAL ONE; -PROPOFOL IV EMULSION 10 MG/ML 20 ML VIAL ONE; -ROCURONIUM BROMIDE 10 MG/ML 5ML VIAL ONE; -SEVOFLURANE INHAL SOLN 250 ML PEN BTL ONE; -SODIUM CHLORIDE 0.9% 100 ML ONE; -SUCCINYLCHOLINE 200 MG/10 ML SYR ONE; -VANCOMYCIN 1GM/NS 250 ML 250 ML ONE
--- NOTE | 2020-02-11 06:48 | NUR ---
Report given to FANNY Tafoya
[2020-02-11] MEDS ORDERED: SODIUM CHLORIDE 0.9% 1000ML 1,000 ML IV STA (07:04)
[2020-02-11] MEDS ORDERED: MORPHINE SULFATE INJ 4 MG/ML INJ 1ML IV PRN (07:15)
[2020-02-11] MEDS ORDERED: ONDANSETRON HCL INJ 2MG/ML 2ML 2 MG/ML VIAL IV STA (08:01)
[2020-02-11 08:07] LABS: BASOPHILS % 0.2 % (0.0-1.0); EOSINOPHILS % 0.3 % (0.0-6.0); HEMATOCRIT 29.3 % (38.2-49.6); HEMOGLOBIN 9.1 g/dL (14.0-18.0); LYMPHOCYTES # (AUTO) 0.9 (1.0-3.2); LYMPHOCYTES % 8.5 % (18.0-39.1); MEAN CORPUSCULAR HEMOGLOBIN 26.7 pg (28-32); MEAN CORPUSCULAR HGB CONC 31.1 g/dL (31-35); MEAN CORPUSCULAR VOLUME 85.9 fL (81-99); MONOCYTES # (AUTO) 0.8 (0.2-0.8); MONOCYTES % 7.2 % (4.4-11.3); NEUTROPHILS # (AUTO) 8.8 (2.1-6.9); NEUTROPHILS % 82.8 % (38.7-80.0); PLATELET COUNT 418 x10e3/uL (140-360); RED BLOOD COUNT 3.41 x10e6/uL (4.3-5.7); RED CELL DISTRIBUTION WIDTH 15.7 % (11.7-14.4)
--- NOTE | 2020-02-11 08:12 | Emergency Department Note ---
History of Present Illnes History of Present Illness Chief Complaint: Genitourinary History of Present Illness This is a 59 year old male arrives to the ED with complaints of any dysuria, has been on antibiotics with no relief. Chief Complaint Comment Patient c/o fever on and off for a month with T max of 102 one month ago. Patient states 99.3 temperature yesterday and has seen Dr. Shar Lowery about one week ago for UTI. Patient taking Bactrim at this time. Patient c/o generalized weakness. No fever at this time. Historian: Patient Arrival Mode: Car Radiation: Reports back Severity: moderate Onset quality: gradual Timing of current episode: constant Progression: waxing and waning Chronicity: recurrent Past Medical/Family History Physician Review I have reviewed the patient's past medical and family history. Any updates have been documented here. Past Medical History Recent Fever: Yes (99.3) Clinical Suspicion of Infectio: No New/Unexplained Change in Ment: No Past Medical History: Hypertension, Cancer Other Medical History: Hemorrhoids, depression, Colon CA, lower back abscess Past Surgical History: Colon Resection Other Surgery: Colostomy, Abdominal hernia repair, I&D of abscess Family History Family history of heart diseas: No Other Last Tetanus: NO Review of Systems Review of Systems Constitutional: Reports no symptoms EENTM: Reports no symptoms Cardiovascular: Reports no symptoms Respiratory: Reports no symptoms Gastrointestinal: Reports no symptoms Genitourinary: Reports no symptoms, Reports as per HPI, Reports dysuria, Reports frequency Musculoskeletal: Reports no symptoms, Reports back pain Integumentary: Reports no symptoms Neurological: Reports no symptoms Psychological: Reports no symptoms Endocrine: Reports no symptoms Hematological/Lymphatic: Reports no symptoms Review of other systems: All other systems negative Physical Exam Related Data Allergies: Coded Allergies: No Known Allergies (Unverified , 07/30/18) Triage Vital Signs Vital Signs Date Time Temp Pulse Resp B/P (MAP) Pulse Ox O2 Delivery O2 Flow Rate FiO2 02/11/20 06:41 98.7 86 20 133/82 99 Vital signs reviewed: Yes Physical Exam CONSTITUTIONAL Constitutional: Present well-developed, Present well-nourished HENT HENT: Present normocephalic, Present atraumatic, Present oropharynx clear/moist, Present nose normal HENT L/R: Present left ext ear normal, Present right ext ear normal EYES Eyes: Reports PERRL, Reports conjunctivae normal NECK Neck: Present ROM normal PULMONARY Pulmonary: Present effort normal, Present breath sounds normal CARDIOVASCULAR Cardiovascular: Present regular rhythm, Present heart sounds normal, Present capillary refill normal, Present normal rate GASTROINTESTINAL Abdominal: Present soft, Present nontender, Present bowel sounds normal GENITOURINARY Genitourinary: Present exam deferred SKIN Skin: Present warm, Present dry MUSCULOSKELETAL Musculoskeletal: Present ROM normal NEUROLOGICAL Neurological: Present alert, Present oriented x 3, Present no gross motor or sensory deficits PSYCHOLOGICAL Psychological: Present mood/affect normal, Present judgement normal Results Laboratory Lab results reviewed: Yes Laboratory comments Laboratory Tests Test 02/11/20 08:28 02/11/20 07:40 Urine Color Yellow (YELLOW) Urine Clarity Cloudy (CLEAR) Urine pH 6 (5 - 7) Urine Specific [place] 1.020 (1.010-1.025) Urine Protein 1+ (NEGATIVE) Urine Glucose (UA) Negative (NEGATIVE) Urine Ketones Negative (NEGATIVE) Urine Blood Moderate (NEGATIVE) Urine Nitrite Negative (NEGATIVE) Urine Bilirubin Negative (NEGATIVE) Urine Urobilinogen 1 mg/dL (0.2 - 1) Urine Leukocyte Esterase Large (NEGATIVE) Urine RBC 6-10 /HPF (0-5) Urine WBC >50 /HPF (0-5) Urine Epithelial Cells Rare /LPF (NONE) Urine Bacteria Moderate /HPF (NONE) White Blood Count 10.57 x10e3/uL (4.8-10.8) Red Blood Count 3.41 x10e6/uL (4.3-5.7) Hemoglobin 9.1 g/dL (14.0-18.0) Hematocrit 29.3 % (38.2-49.6) Mean Corpuscular Volume 85.9 fL (81-99) Mean Corpuscular Hemoglobin 26.7 pg (28-32) Mean Corpuscular Hemoglobin Concent 31.1 g/dL (31-35) Red Cell Distribution Width 15.7 % (11.7-14.4) Platelet Count 418 x10e3/uL (140-360) Neutrophils (%) (Auto) 82.8 % (38.7-80.0) Lymphocytes (%) (Auto) 8.5 % (18.0-39.1) Monocytes (%) (Auto) 7.2 % (4.4-11.3) Eosinophils (%) (Auto) 0.3 % (0.0-6.0) Basophils (%) (Auto) 0.2 % (0.0-1.0) Neutrophils # (Auto) 8.8 (2.1-6.9) Lymphocytes # (Auto) 0.9 (1.0-3.2) Monocytes # (Auto) 0.8 (0.2-0.8) Eosinophils # (Auto) 0.0 (0.0-0.4) Basophils # (Auto) 0.0 (0.0-0.1) Absolute Immature Granulocyte (auto 0.11 x10e3/uL (0-0.1) Sodium Level 132 mmol/L (136-145) Potassium Level 4.6 mmol/L (3.5-5.1) Chloride Level 101 mmol/L (98-107) Carbon Dioxide Level 18 mmol/L (22-29) Anion Gap 17.6 mmol/L (8-16) Blood Urea Nitrogen 15 mg/dL (7-26) Creatinine 1.32 mg/dL (0.72-1.25) Estimat Glomerular Filtration Rate 55 ML/MIN (60-) BUN/Creatinine Ratio 11 (6-25) Glucose Level 109 mg/dL (74-118) Calcium Level 9.4 mg/dL (8.4-10.2) Total Bilirubin 0.4 mg/dL (0.2-1.2) Aspartate Amino Transf (AST/SGOT) 34 IU/L (5-34) Alanine Aminotransferase (ALT/SGPT) 30 IU/L (0-55) Alkaline Phosphatase 125 IU/L (40-150) Creatine Kinase 24 IU/L (30-200) Creatine Kinase MB 0.40 ng/mL (0-5.0) Troponin I < 0.001 ng/mL (0-0.300) Total Protein 8.4 g/dL (6.5-8.1) Albumin 2.4 g/dL (3.5-5.0) Globulin 6.0 g/dL (2.3-3.5) Albumin/Globulin Ratio 0.4 (0.8-2.0) Laboratory Tests Test 02/11/20 07:40 Imaging Imaging results reviewed: Yes Imaging Comments IMPRESSION: Moderate right hydronephrosis. Right ureteral stent in expected position. Mild-moderate left hydroureteronephrosis. Thickened wall of the bladder. This finding may be correlated with urinalysis to exclude cystitis. Persistent soft tissue density in the presacral region likely represents postsurgical change. Air and fluid containing structure superior to the rectal stump may represent a portion of the rectal stump, however abscess cannot be excluded in the correct clinical setting. Splenomegaly. Signed by: Del Griffith MD on 02/11/2020 11:27 AM Assessment & Plan Medical Decision Making MDM 59-year-old male arrives to the ED with complaints of bilateral flank pain, had a stent placed secondary to chronic UTIs by Dr. Lowery. Patient afebrile in the ED, normal vital signs, no evidence of tachycardia. Patient has tried to outpatient antibiotics minimal relief. Patient admitted to the hospital for failed outpatient therapy and need for IV antibiotics. Assessment & Plan Final Impression: (1) Urinary retention (2) Urinary tract infection (3) Hydronephrosis (4) Ureteral stent retained Depart Disposition: ADMITTED Last Vital Signs Date Time Temp Pulse Resp B/P (MAP) Pulse Ox O2 Delivery O2 Flow Rate FiO2 02/11/20 06:46 88 20 127/87 98 02/11/20 06:41 98.7 Home Meds Reported Medications Hydrocodone Bit/Acetaminophen (NORCO 10-325 TABLET) 1 Each Tablet, PO 08/31/18 Bupropion Hcl (WELLBUTRIN SR) 150 Mg Tablet.er, 150 MG PO DAILY 07/30/18 Medications in the ED Sodium Chloride 1,000 ml @ 0 mls/hr Q0M STAT IV Last administered on 02/11/20at 07:43; Admin Dose 999 MLS/HR; Start 02/11/20 at 07:04; Stop 02/11/20 at 07:05; Status DC Morphine Sulfate 6 mg ONCE PRN IV SEVERE PAIN (7-10) Last administered on 02/11/20at 07:43; Admin Dose 6 MG; Start 02/11/20 at 07:15; Stop 02/18/20 at 07:14 CHRISTOPHE LOCK DO Feb 11, 2020 08:12
[2020-02-11 08:37] LABS: ALANINE AMINOTRANSFERASE 30 IU/L (0-55); ALBUMIN 2.4 g/dL (3.5-5.0); ALBUMIN/GLOBULIN RATIO 0.4 (0.8-2.0); ALKALINE PHOSPHATASE 125 IU/L (40-150); ANION GAP 17.6 mmol/L (8-16); BLOOD UREA NITROGEN 15 mg/dL (7-26); BUN/CREATININE RATIO 11 (6-25); CALCIUM 9.4 mg/dL (8.4-10.2); CARBON DIOXIDE 18 mmol/L (22-29); CHLORIDE 101 mmol/L (98-107); CREATINE KINASE 24 IU/L (30-200); CREATININE, SERUM 1.32 mg/dL (0.72-1.25); EST GLOMERULAR FILTRATION RATE 55 ML/MIN (60-); GLUCOSE 109 mg/dL (74-118); POTASSIUM 4.6 mmol/L (3.5-5.1); SODIUM 132 mmol/L (136-145)
[2020-02-11 08:56] LABS: BILIRUBIN,URINE NEGATIVE (NEGATIVE); CLARITY,URINE CLOUDY (CLEAR); COLOR,URINE YELLOW (YELLOW); KETONES,URINE NEGATIVE (NEGATIVE); LEUKOCYTE ESTERASE ,URINE LARGE (NEGATIVE); NITRITE,URINE NEGATIVE (NEGATIVE); PROTEIN,URINE DIPSTICK 1+ (NEGATIVE); URINE UROBILINOGEN 1 mg/dL (0.2 - 1)
[2020-02-11] MEDS ORDERED: SODIUM CHLORIDE 0.9% 50ML 50 ML ONE (08:57)
[2020-02-11] MEDS ORDERED: IOPAMIDOL 370 MG/ML 200 ML INFUS..BTL INJ ONE (08:58)
[2020-02-11 09:06] LABS: BACTERIA,URINE MODERATE /HPF; EPITHELIAL CELLS,URINE RARE /LPF; WBC,URINE (MAN) >50 /HPF (0-5)
[2020-02-11] MEDS ORDERED: KETOROLAC TROMETHAMINE 30 MG/ML VIAL IV STA (10:40)
--- NOTE | 2020-02-11 11:30 | Diagnostic Imaging Report ---
TECHNIQUE: CT of the abdomen and pelvis WITH intravenous contrast and WITHOUT oral contrast. Dose modulation, iterative reconstruction, and/or weight-based adjustment of the mA/kV was utilized to reduce the radiation dose to as low as reasonably achievable. INDICATION: 59-year-old man with abdominal pain. COMPARISON: Abdomen and pelvis CT 12/10/2017. FINDINGS: LOWER THORAX: Mild atelectasis in both lung bases. HEPATOBILIARY: No focal hepatic lesions. Gallbladder is unremarkable. No biliary ductal dilatation. SPLEEN: Spleen is prominent and measures 15.5 cm in greatest dimension. PANCREAS: No focal masses or ductal dilatation. ADRENALS: No adrenal nodules. KIDNEYS/URETERS: Moderate right hydronephrosis with right ureteral stent in expected position. Mild-moderate left hydroureteronephrosis. Bilateral perinephric fat stranding, right greater than left PELVIC ORGANS/BLADDER: Thickened wall of the underdistended bladder. Prostate is grossly unremarkable. PERITONEUM/RETROPERITONEUM: No free air or fluid. Persistent soft tissue density in the presacral region contains a tubular air-filled structure, which likely represents the rectal stump. 3.1 x 3.1 cm air and fluid containing structure superior to the air-filled rectal stump. LYMPH NODES: No lymphadenopathy. VESSELS: Unremarkable. GI TRACT: End colostomy in the left lower quadrant. No distention or wall thickening. 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 Diastases recti with periumbilical ventral hernia which contains nonstrangulated loops of bowel. Peristomal hernia contains a nonstrangulated loop of small bowel. IMPRESSION: Moderate right hydronephrosis. Right ureteral stent in expected position. Mild-moderate left hydroureteronephrosis. Thickened wall of the bladder. This finding may be correlated with urinalysis to exclude cystitis. Persistent soft tissue density in the presacral region likely represents postsurgical change. Air and fluid containing structure superior to the rectal stump may represent a portion of the rectal stump, however abscess cannot be excluded in the correct clinical setting. Splenomegaly. Signed by: Del Griffith MD on 02/11/2020 11:27 AM
[2020-02-11] MEDS ORDERED: MORPHINE SULFATE 2 MG/ML SYR 1ML IV PRN (12:15)
[2020-02-11] MEDS: SODIUM CHLORIDE 0.9% 1000ML 1,000 ML IV SCH ×2 (12:27→20:50)
--- NOTE | 2020-02-11 13:44 | NUR ---
ASSESSMENT: Spiritual concern ED Visit. Pt hopeful for successful treatment of illness. Pt's at bedside. Intervention: Provided calming empathic listening. Facilitated illness review. Provided prayer and encouragement. Outcome: Pt & expressed appreciation for support. Will follow as able. NANCY HURT [employer] Spiritual Care Department O: [phone]
[2020-02-11 14:08] VITALS: BP 125/72
[2020-02-11] MEDS ORDERED: FLOMAX0.4 MG PO (14:15)
[2020-02-11 14:16] VITALS: BP 125/72
--- NOTE | 2020-02-11 14:20 | NUR ---
RECEIVED PATIENT FROM ER TO ROOM 290. HE IS IN STABLE CONDITION. AT BEDSIDE. ORIENTED TO ROOM AND POLICIES. CALL LIGHT WITHIN REACH. BED IN THE LOWEST POSITION.
[2020-02-11 14:24] VITALS: BP 125/72
[2020-02-11] MEDS: MORPHINE SULFATE INJ 4 MG/ML INJ 1ML IV PRN ×3 (14:30→23:14)
[2020-02-11] MEDS: ONDANSETRON HCL INJ 2MG/ML 2ML 2 MG/ML VIAL IV PRN ×2 (14:30→18:40)
[2020-02-11 15:35] VITALS: BP 121/69
--- NOTE | 2020-02-11 19:05 | NUR ---
Patient visited in room during nursing rounds. Patient alert and oriented x3. Ambulatory in room prn. Pt has Colostomy bag on LUQ abd. Wound on rectum packed with dressing (as per report received from [facility] nurse). Pt on IVF (NS at 125ml/hr) and will talk to Dr. Sunhsine's PA to obtain IV antibiotic order. Pt aware he is scheduled for Cystoscopy tomorrow (02/12/20) around noon by Dr. Lowery. Call alejandre within reach.
--- NOTE | 2020-02-11 19:18 | NUR ---
BEDSIDE SHIFT REPORT GIVEN TO ONCOMING NURSE. PATIENT IS RESTING IN BED. NO ACUTE DISTRESS NOTED. CALL LIGHT WITHIN REACH. BED IN THE LOWEST POSITION.
[2020-02-11 20:00] VITALS: BP 119/70
--- NOTE | 2020-02-11 20:50 | NUR ---
Elizabeth Gustafson ([employer]) came and visited pt in room. Made aware by nurse (Rudolph) that patient does not have IV antibiotic ordered at this time and Tylenol prn for fever. Elizabeth stated she will order Rocephin and Tylenol to be given to the patient tonight.
[2020-02-11] MEDS: DIAZEPAM 5 MG TAB PO SCH (20:54)
[2020-02-11] MEDS ORDERED: METHENAMINE HIPP1 GM PO (20:58)
[2020-02-11] MEDS ORDERED: BACTRIM DS TAB1 EACH PO (20:58)
[2020-02-11 21:00] VITALS: BP 119/70
[2020-02-11] MEDS: ACETAMINOPHEN 325 MG TAB PO PRN (21:15)
[2020-02-11] MEDS: CEFTRIAXONE SOD 1 GM/NS 50 ML 50 ML IV SCH (21:20)
[2020-02-12] VITALS (7 sets, daily range): BP systolic 105–128; BP diastolic 64–73
[2020-02-12] MEDS: SODIUM CHLORIDE 0.9% 1000ML 1,000 ML IV SCH ×3 (05:08→20:15)
[2020-02-12] MEDS: MORPHINE SULFATE INJ 4 MG/ML INJ 1ML IV PRN ×5 (05:08→23:48)
[2020-02-12] MEDS: ONDANSETRON HCL INJ 2MG/ML 2ML 2 MG/ML VIAL IV PRN ×5 (05:15→23:48)
[2020-02-12 06:04] LABS: BASOPHILS % 0.4 % (0.0-1.0); EOSINOPHILS # (AUTO) 0.1 (0.0-0.4); EOSINOPHILS % 0.5 % (0.0-6.0); HEMATOCRIT 27.4 % (38.2-49.6); HEMOGLOBIN 8.4 g/dL (14.0-18.0); LYMPHOCYTES # (AUTO) 0.8 (1.0-3.2); LYMPHOCYTES % 7.4 % (18.0-39.1); MEAN CORPUSCULAR HGB CONC 30.7 g/dL (31-35); MEAN CORPUSCULAR VOLUME 84.8 fL (81-99); MONOCYTES # (AUTO) 0.9 (0.2-0.8); MONOCYTES % 8.1 % (4.4-11.3); NEUTROPHILS # (AUTO) 9.3 (2.1-6.9); NEUTROPHILS % 82.7 % (38.7-80.0); PLATELET COUNT 450 x10e3/uL (140-360); RED BLOOD COUNT 3.23 x10e6/uL (4.3-5.7); RED CELL DISTRIBUTION WIDTH 15.7 % (11.7-14.4)
[2020-02-12 06:27] LABS: ANION GAP 13.5 mmol/L (8-16); CALCIUM 8.2 mg/dL (8.4-10.2); CREATININE, SERUM 1.33 mg/dL (0.72-1.25); POTASSIUM 4.5 mmol/L (3.5-5.1)
--- NOTE | 2020-02-12 06:42 | NUR ---
RECEIVED BEDSIDE SHIFT REPORT FROM OFF GOING NURSE. PATIENT IS RESTING IN BED. NO ACUTE DISTRESS NOTED. CALL LIGHT WITHIN REACH. BED IN THE LOWEST POSITION.
[2020-02-12 06:45] LABS: CHOL/HDL RATIO 4.7 (3.9-4.7)
[2020-02-12 06:58] LABS: THYROID STIMULATING HORMONE 3.548 uIU/mL (0.350-4.940)
[2020-02-12 06:59] LABS: MAGNESIUM 1.9 MG/DL (1.3-2.1); PHOSPHORUS 3.5 MG/DL (2.3-4.7)
--- NOTE | 2020-02-12 09:37 | NUR ---
ASSESSMENT: Spiritual concern Pt hopeful for successful procedure. Pt's at bedside. Pt states he's schedule for procedure about 12:30PM. Intervention: Provided calming pastoral presence and empathic listening. Facilitated illness review. Provided prayer. Outcome: Pt & expressed appreciation for support. Will continue to follow. NANCY HURT Program Director Spiritual Care Department O: [phone]
--- NOTE | 2020-02-12 11:20 | NUR ---
NOTIFIED DR. Veda MCMAHAN OF [facility] OF 100.1, MD ORDERED SUPPOSITORY 650MG TO BE GIVEN THROUGH COLOSTOMY.
[2020-02-12] MEDS ORDERED: ACETAMINOPHEN 650 MG SUPP PR ONE (11:50)
[2020-02-12] MEDS ORDERED: IOPAMIDOL 300MG/ML 50ML INFUS..BTL IV ONE (12:10)
--- NOTE | 2020-02-12 12:20 | NUR ---
PATIENT OFF UNIT AT THIS TIME FOR PROCEDURE.
[2020-02-12] MEDS ORDERED: PROPOFOL IV EMULSION 10 MG/ML 20 ML VIAL ONE ×2 (12:27→14:23)
--- NOTE | 2020-02-12 12:34 | NUR ---
WOUND CARE CONSULT FOR 59 YO MALE HX OFCOLON RESECTION, CA,REMOVAL OF RECTUM,COLOSTOMY ORIN 21 ON CONSERVATIVE PUP STATUS AND INTERVENTIONS AND VISCO MATTRESS LABS: WBC-11.29 HGB_8.4 GLUCOSE-99 SKIN ASSESSMENT COMPLETE PATIENT PRESENTS WITH SURGICAL SITE FROM REMOVAL OF RECTUM X2.5YEARS AGO RECOMMENDATIONS: NURSING TO CONTINUE TO MAINTAIN CONSERVATIVE PUP STATUS AND INTERVENTIONS AND VISCO MATTRESS NURSING TO CONTINUE TO ASSIST PATIENT OUT OF BED FOR MEALS AND MUCH TOLERATED NURSING TO CONTINUE TO ASSIST PATIENT NEEDED WITH MEALS AND NUTRITIONAL SUPPLEMENTS TO ENSURE PROPER REQUIREMENTS FOR HEALING NURSING TO CONTINUE TO OFFLOAD FEET AND HEELS NEEDED WITH PILLOW SUSPENSION WHEN IN BED AT BEDSIDE PREFERS TO PERFORM FOLLOWING WOUND CARE CLEAN RECTAL SURGICAL WOUND WITH NORMAL WOUND BIOMEDICAL INSTRUMENT TECHNICIAN DAILY AND PACK LOOSELY WITH DAMPENED KERLIX PLACE PAD TO BRIEF TO CONTROL ANY DRAINAGE Addendum: 02/12/20 at 1241 by Jorge Hope RN Amended: Links added.
[2020-02-12] MEDS ORDERED: ONDANSETRON HCL INJ 2MG/ML 2ML 2 MG/ML VIAL ONE (14:23)
[2020-02-12] MEDS ORDERED: SEVOFLURANE INHAL SOLN 250 ML PEN BTL ONE (14:23)
[2020-02-12] MEDS ORDERED: LIDOCAINE HCL 2% LOCAL INJ 5 ML SDV VIAL INJ ONE (14:23)
[2020-02-12] MEDS ORDERED: DEXAMETHASONE SOD PHOS INJ 4 MG/ML VIAL ONE (14:23)
--- NOTE | 2020-02-12 14:39 | NUR ---
PATIENT BACK TO UNIT AT THIS TIME.
[2020-02-12 15:15] LABS: BASOPHILS # (AUTO) 0.1 (0.0-0.1); BASOPHILS % 0.4 % (0.0-1.0); EOSINOPHILS % 0.2 % (0.0-6.0); HEMATOCRIT 32.1 % (38.2-49.6); HEMOGLOBIN 9.9 g/dL (14.0-18.0); LYMPHOCYTES # (AUTO) 1.4 (1.0-3.2); LYMPHOCYTES % 9.9 % (18.0-39.1); MEAN CORPUSCULAR HEMOGLOBIN 26.8 pg (28-32); MEAN CORPUSCULAR HGB CONC 30.8 g/dL (31-35); MONOCYTES # (AUTO) 0.6 (0.2-0.8); MONOCYTES % 4.5 % (4.4-11.3); NEUTROPHILS # (AUTO) 11.7 (2.1-6.9); NEUTROPHILS % 83.9 % (38.7-80.0); PLATELET COUNT 468 x10e3/uL (140-360); RED BLOOD COUNT 3.69 x10e6/uL (4.3-5.7); RED CELL DISTRIBUTION WIDTH 15.8 % (11.7-14.4)
[2020-02-12 15:36] LABS: ALBUMIN 2.4 g/dL (3.5-5.0); ALBUMIN/GLOBULIN RATIO 0.4 (0.8-2.0); ANION GAP 16.1 mmol/L (8-16); CALCIUM 9.2 mg/dL (8.4-10.2); CREATININE, SERUM 1.52 mg/dL (0.72-1.25); POTASSIUM 5.1 mmol/L (3.5-5.1)
[2020-02-12] MEDS ORDERED: HYDRALAZINE HCL 20 MG/ML VIAL IV PRN (17:30)
--- NOTE | 2020-02-12 19:01 | Consultation ---
DATE OF CONSULTATION: REASON FOR CONSULTATION: Left hydronephrosis with dysuria and UTI. HISTORY: I have known this patient for approximately two years. The patient had come to my office with difficulty urinating. He had a urinary tract infection. He was treated for it and went into urinary retention after surgery for a cancer of the colon. He had a rupture of the colon due to obstruction due to a cancer, had a colostomy reversal and a colostomy again. The patient developed infections and they were treated accordingly. Approximately six months ago, it was noted that he had a right hydronephrosis. At that time, the double-J was placed in and then it was exchanged for a metal double-J to stay in longer than three months. At the time, it was noted that his bladder had become thicker when compared to a CT scan of two years ago. The patient now has developed a low-grade fever, particularly at night and after feeling sick and not been able to tolerate any diet, the patient came to the ER where a CT scan showed that he had hydronephrosis on the left side. Just a month ago, he had an ultrasound that showed no hydro on the left side. We know that he has recurrent cancer, have been treated with chemotherapy for a number of months, but three months ago he quit taking chemo. 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 At the present time because of symptomatology, we will attempt to pass a double-J to the left side to drain the kidney, culture the urine on the left kidney, and then the patient can go back to the oncologists to treat some for re-consultation regarding treatment. The tumor is now I believe advancing since the left kidney is blocked. I would arrange to have in surgery tomorrow so that we can do a double-J placement. If that is not possible, then we will arrange for percutaneous nephrostomy tube and an anterograde placement of a double-J. MD MOHAMUD SaucedoG/MODL /[id number]
--- NOTE | 2020-02-12 19:07 | NUR ---
BEDSIDE SHIFT REPORT GIVEN TO ONCOMING NURSE. PATIENT IS RESTING IN BED. NO ACUTE DISTRESS NOTED. CALL LIGHT WITHIN REACH. BED IN THE LOWEST POSITION.
--- NOTE | 2020-02-12 19:20 | NUR ---
RECEIVED REPORT FROM 7AM NURSE, PATIENT RESTING IN BED, IV INFUSING, CALL LIGHT IN REACH. WILL CONTINUE TO MONITOR.
[2020-02-12] MEDS ORDERED: PROMETHAZINE 12.5MG/ NACL 0.9% 12.5 MG/50 ML BAG IV NR (19:45)
[2020-02-12] MEDS ORDERED: FENTANYL CITRATE/PF 100MCG/2 ML INJ ONE (20:15)
[2020-02-12] MEDS ORDERED: MIDAZOLAM HCL 2 MG/2 ML VIAL ONE (20:15)
[2020-02-12] MEDS ORDERED: MORPHINE SULFATE INJ 10 MG/ML ONE (20:15)
[2020-02-12] MEDS: DIAZEPAM 5 MG TAB PO SCH (21:04)
[2020-02-12] MEDS: CEFTRIAXONE SOD 1 GM/NS 50 ML 50 ML IV SCH (21:04)
[2020-02-13] VITALS (9 sets, daily range): BP systolic 105–127; BP diastolic 63–79
[2020-02-13] MEDS: SODIUM CHLORIDE 0.9% 1000ML 1,000 ML IV SCH ×2 (04:15→18:04)
[2020-02-13] MEDS: ONDANSETRON HCL INJ 2MG/ML 2ML 2 MG/ML VIAL IV PRN ×5 (04:27→22:09)
[2020-02-13] MEDS: MORPHINE SULFATE INJ 4 MG/ML INJ 1ML IV PRN ×5 (04:27→22:09)
--- NOTE | 2020-02-13 05:03 | NUR ---
PATIENT CONTINUE RESTING, MEDICATED FOR PAIN NEEDED, DRESSING TO RECTUM AREA REMAIN INTACT, REFUSES TO HAVE NURSE REMOVE IT, TAKES CARE OF THE DRESSING. PATIENT HAS A COLOSTOMY AND HE CARE FOR IT HIMSELF. IV INFUSING, BERG REMAIN INTACT CONTINUE DRAINING STRAW COLOR URINE WITH SEDIMENTS. WILL CONTINUE TO MONITOR. CALL LIGHT IN REACH.
[2020-02-13 05:51] LABS: BASOPHILS % 0.3 % (0.0-1.0); EOSINOPHILS % 0.3 % (0.0-6.0); HEMATOCRIT 26.4 % (38.2-49.6); HEMOGLOBIN 8.1 g/dL (14.0-18.0); LYMPHOCYTES # (AUTO) 0.9 (1.0-3.2); LYMPHOCYTES % 8.9 % (18.0-39.1); MEAN CORPUSCULAR HEMOGLOBIN 27.4 pg (28-32); MEAN CORPUSCULAR HGB CONC 30.7 g/dL (31-35); MEAN CORPUSCULAR VOLUME 89.2 fL (81-99); MONOCYTES # (AUTO) 0.6 (0.2-0.8); MONOCYTES % 6.2 % (4.4-11.3); NEUTROPHILS # (AUTO) 8.1 (2.1-6.9); NEUTROPHILS % 83.4 % (38.7-80.0); PLATELET COUNT 373 x10e3/uL (140-360); RED BLOOD COUNT 2.96 x10e6/uL (4.3-5.7); RED CELL DISTRIBUTION WIDTH 15.7 % (11.7-14.4)
[2020-02-13 06:14] LABS: ALANINE AMINOTRANSFERASE 25 IU/L (0-55); ALBUMIN 1.9 g/dL (3.5-5.0); ALBUMIN/GLOBULIN RATIO 0.4 (0.8-2.0); ALKALINE PHOSPHATASE 96 IU/L (40-150); ANION GAP 13.3 mmol/L (8-16); BLOOD UREA NITROGEN 13 mg/dL (7-26); BUN/CREATININE RATIO 12 (6-25); CARBON DIOXIDE 20 mmol/L (22-29); CHLORIDE 105 mmol/L (98-107); CREATININE, SERUM 1.11 mg/dL (0.72-1.25); EST GLOMERULAR FILTRATION RATE > 60 ML/MIN (60-); GLUCOSE 122 mg/dL (74-118); POTASSIUM 4.3 mmol/L (3.5-5.1); SODIUM 134 mmol/L (136-145)
--- NOTE | 2020-02-13 07:16 | NUR ---
REPORT GIVEN TO AM NURSE.
--- NOTE | 2020-02-13 07:20 | NUR ---
PATIENT IN BED WITH HEAD OF BED ELEVATED WATCHING TV, NO DISTRESS NOTED. BERG CATHETER DRAINING CLOUDY URINE, LEFT COLOSTOMY BAG INTACT, OLD WOUND TO BUTTOCKS. BED IN LOWER POSITION, CALL LIGHT AT REACH.
--- NOTE | 2020-02-13 09:00 | NUR ---
ASSESSMENT: Spiritual concern Pt thankful. Pt expressed thanks for his physician, nurse and God. Pt grateful that procedure was preformed. Pt's at bedside. Intervention: Provided empathic listening. Facilitated illness review and storytelling. Outcome: Pt & expressed appreciation for visit. Will continue to follow as able. NANCY HURT [employer] Spiritual Care Department O: [phone]
--- NOTE | 2020-02-13 11:23 | NUR ---
SPOKE WITH HAND POTTER REGARDING ABNORMAL LAB RESULT, NEW ORDERS RECEIVED.
--- NOTE | 2020-02-13 11:51 | NUR ---
CALL TO THE PT TO DISCUSS CHOICE FOR HOME IV ABX. PT STATES HE WAS TOLD BY DR. MCMAHAN HE WOULD NOT BE GOING HOME W THE PICC LINE AND WOULD TAKE ORAL ABX. STATES HE DISCUSSED THIS W THE ATTENDING; COSTA, AND SHE SAID SHE WOULD SPEAK W DR. MCMAHAN. STATES THE PLAN IS FOR HIM TO BE HERE A COUPLE OF MORE DAYS, THEN HOME W PO ABX. WILL F/U.
[2020-02-13] MEDS: MEROPENEM 500MG/ NS 50ML 50 ML IV SCH ×2 (12:00→20:01)
--- NOTE | 2020-02-13 12:03 | Progress Note ---
DATE: 02/13/2020 SUBJECTIVE: Today, the patient's white count has gone down to 9.5. He had a fever last night, treated with Tylenol. Otherwise, his urine today is little cloudy, but there was no debris like it was yesterday. He continues on Rocephin. He has ESBL in the urine, but is also sensitive to oral antibiotics. RECOMMENDATION: Restart the patient on Wellbutrin. He stopped it on his own. I told him that we need to make sure that he is still staying on it. He can have regular diet today. The patient has had some depression associated with all the problems that he has had. Notice that his E coli still sensitive to Macrobid, so tomorrow he will also get Rocephin and I will send him home on Macrobid tomorrow. I discussed this with the and the patient. He will have his catheter removed in the morning. I will see him next week also in the office to check for his postvoid residual. I want to make sure that he is still emptying his bladder well. MD IZABEL Saucedo/NIKKIL /[id number]
--- NOTE | 2020-02-13 15:40 | NUR ---
PATIENT HAS AND ORDER FOR PICC LINE PLACEMENT. ORDER RECEIVED TO HOLD ON UNTIL CLEAR BY DR MCMAHAN.
--- NOTE | 2020-02-13 16:20 | Operative Report ---
DATE OF PROCEDURE: 02/12/2020 SURGEON: Shar Lowery MD PREOPERATIVE DIAGNOSES: Left hydronephrosis and ureteral dilatation. POSTOPERATIVE DIAGNOSES: Left hydroureteronephrosis, benign prostatic hyperplasia, right pyelonephritis with non-working double-J obstructed. OPERATIONS PERFORMED: Cystoscopy, bilateral retrograde pyelograms, left ureteral stenosis dilatation, balloon dilatation with left double-J placement, 6-American Kwart universal double-J and on the left with urine collection for culture, on the right exchange of nonfunctioning double-J with removal of pus, urine culture, and exchange of double-J right side. ANESTHESIOLOGIST: Dr. Olmos. ANESTHESIA: General. FINDINGS: The patient has a normal urethra. No strictures or stones or stenosis. Prostate, high-riding middle bar. Bladder, grade 1 to 2 trabeculation. Double-J on the right side normal. On the left side, no output. The retrograde pyelogram on the left side showed a very narrowed ureter on the left side from ureterovesical junction to the crossing of the iliac. On the right side, the retrograde was done after the double-J had been removed and it showed an irregularity and inflammation of the collecting system, which upon suctioning out with the open-ended catheter revealed gross pus. That side was not draining properly and it was infected. PROCEDURE IN DETAIL: With the patient under satisfactory general anesthesia, the patient was placed in the supine position on the operating table. Legs were placed on stirrups. Genitalia was prepped with pHisoHex solution and draped in the usual manner. At this point, the fluoroscopy was performed and it showed that the existing double-J on the right side was in the appropriate position. At that point, we retrograded the left side and it showed that the patient had that stenotic area on the left side. I passed a Glidewire all the way up to the kidney and attempted to passed an open-ended catheter and I failed. I introduced ureteral catheter dilators up to a size 8, which was very difficult to do and at that point, I introduced the open-ended catheter and did a retrograde, which showed hydronephrosis and hydronephrotic drip, which I collected the urine for culture. After that, I introduced the open-ended catheter, introduced the extra stiff guidewire, and removed the open-ended catheter. After doing that, I attempted to pass a 6-American Kwart universal double-J and I could not remove the double-J. At that point, I introduced the 10 cm balloon dilator, dilated to 16 atmosphere and at 18 atmosphere, the ureter was opened up onto the balloon. I removed the balloon dilator and introduced a 6-American Kwart universal double-J. This was went up, but it went up with some difficulty, so even though dilated, there was still this compression pressure externally on the ureter. This was believed to be the tumor that the patient has in the pelvis. At this point, I made the J in the renal pelvis. I removed the guidewire, made the J in the bladder and released the double-J by introducing the sleeve over the pusher and removing the pusher of the double-J. At that point, my attention was placed on the right side. I re-cystoscope the patient and at that point, I introduced a Glidewire up the ureter using the 70-degree angle lens and Anu bridge. Under fluoroscopy, the guidewire was in the proper position in the kidney. At this point, I removed the cystoscope leaving the guidewire in place. Reintroduced the cystoscope with the Anu bridge and using the grasper, I was able to grasp the tip of the double-J and removed it. Since I had the wire in place, I introduced an open-ended catheter. At that point, I removed the guidewire only to see there was susan pus coming out of the open-ended catheter. Using a 10 mL syringe, I withdrew 20 mL of pus, which was sent in for culture. Once I accomplished that, then I introduced the extra stiff guidewire, removed the open-ended catheter and replaced it with a 6-American Kwart universal double-J. I injected approximately 3 mL of contrast media and I was able to see that the patient has a bifid system, but I was able to place the double-J in the bifid takeoff, so we will drain both the upper and the lower pole. Once that was done, then I introduced again the sleeve, disengaged the pusher, left the double-J in place. Re-cystoscope the patient and make sure that both Js were in the bladder in the appropriate position. At this point, I introduced the cystoscope again and rechecked the bladder. I did not see any areas of tumor inside the bladder. The bladder wall looked speckle beefy red all over, compatible with cystitis. So at this point, I introduced a Polanco catheter and left the Polanco catheter in place. At this point, the patient was taken to the recovery room in satisfactory condition. I discussed the case with the and gave her pictures taken throughout the case. MD IZABEL Saucedo/AMY /[id number]
[2020-02-13] MEDS: ACETAMINOPHEN 325 MG TAB PO PRN (17:10)
--- NOTE | 2020-02-13 19:10 | NUR ---
BEDSIDE REPORT GIVEN TO ON COMING NURSE.
--- NOTE | 2020-02-13 19:20 | NUR ---
Received patient awake, not in distress, call light within reach, advised to call for assistance anytime, will continue to monitor closely
[2020-02-13] MEDS: DIAZEPAM 5 MG TAB PO SCH (20:01)
[2020-02-14] VITALS: BP 107/68
[2020-02-14] MEDS: SODIUM CHLORIDE 0.9% 1000ML 1,000 ML IV SCH ×2 (01:03→03:25)
[2020-02-14] MEDS: MORPHINE SULFATE INJ 4 MG/ML INJ 1ML IV PRN ×3 (01:52→09:55)
[2020-02-14] MEDS: ONDANSETRON HCL INJ 2MG/ML 2ML 2 MG/ML VIAL IV PRN ×3 (01:52→09:55)
[2020-02-14] MEDS: MEROPENEM 500MG/ NS 50ML 50 ML IV SCH (03:25)
[2020-02-14 04:00] VITALS: BP 123/70
--- NOTE | 2020-02-14 06:30 | NUR ---
ASSESSMENT: Spiritual distress Visit initiated request for visit. Pt angry and fearful. Pt angry at protracted illness and continuing treatment. Pt afraid of eventual . Intervention: Provided unhurried empathic listening. Facilitated illness review and storytelling. Provided reassurance. Outcome: Pt expressed appreciation for support. Will continue to follow as able. NANCY HURT [employer] Draper Spiritual Care Department O: [phone]
[2020-02-14 06:46] LABS: BASOPHILS # (AUTO) 0.1 (0.0-0.1); BASOPHILS % 0.5 % (0.0-1.0); EOSINOPHILS # (AUTO) 0.1 (0.0-0.4); EOSINOPHILS % 1.1 % (0.0-6.0); HEMATOCRIT 30.6 % (38.2-49.6); HEMOGLOBIN 9.1 g/dL (14.0-18.0); LYMPHOCYTES # (AUTO) 1.1 (1.0-3.2); LYMPHOCYTES % 10.5 % (18.0-39.1); MEAN CORPUSCULAR HEMOGLOBIN 25.6 pg (28-32); MEAN CORPUSCULAR HGB CONC 29.7 g/dL (31-35); MONOCYTES # (AUTO) 0.8 (0.2-0.8); MONOCYTES % 7.3 % (4.4-11.3); NEUTROPHILS # (AUTO) 8.4 (2.1-6.9); NEUTROPHILS % 79.6 % (38.7-80.0); PLATELET COUNT 461 x10e3/uL (140-360); RED BLOOD COUNT 3.56 x10e6/uL (4.3-5.7); RED CELL DISTRIBUTION WIDTH 15.7 % (11.7-14.4)
--- NOTE | 2020-02-14 06:46 | NUR ---
walking rounds done with rm RN, call light within reach
[2020-02-14 07:08] LABS: ALANINE AMINOTRANSFERASE 36 IU/L (0-55); ALBUMIN 2.2 g/dL (3.5-5.0); ALBUMIN/GLOBULIN RATIO 0.4 (0.8-2.0); ALKALINE PHOSPHATASE 117 IU/L (40-150); ANION GAP 11.2 mmol/L (8-16); BLOOD UREA NITROGEN 11 mg/dL (7-26); BUN/CREATININE RATIO 10 (6-25); CALCIUM 8.5 mg/dL (8.4-10.2); CARBON DIOXIDE 21 mmol/L (22-29); CHLORIDE 104 mmol/L (98-107); CREATININE, SERUM 1.12 mg/dL (0.72-1.25); EST GLOMERULAR FILTRATION RATE > 60 ML/MIN (60-); GLUCOSE 106 mg/dL (74-118); POTASSIUM 4.2 mmol/L (3.5-5.1); SODIUM 132 mmol/L (136-145)
--- NOTE | 2020-02-14 07:15 | NUR ---
PATIENT IN BED RESTING WITH NO S/S OF DISTRESS. BERG CATHETER WITH YELLOW URINE. IV FLUID INFUSING ORDERED. BED IN LOWER POSITION, CALL LIGHT AT REACH.
[2020-02-14 07:46] VITALS: BP 107/47
[2020-02-14 08:03] VITALS: BP 125/75
[2020-02-14] MEDS ORDERED: BUPROPION HCL SR 150 MG TAB PO SCH (09:00)
[2020-02-14] MEDS ORDERED: MACROBID 100 M100 MG PO (09:52)
--- NOTE | 2020-02-14 11:13 | Diagnostic Imaging Report ---
PROCEDURE: Fluoroscopic guidance for retrograde pyelogram COMPARISON: CT abdomen and pelvis 02/11/2020. INDICATION: Urinary obstruction Radiation Details: Fluoroscopy time: 1 minute 47 seconds Cumulative dose: 93 mGy DISCUSSION: Fluoroscopic guidance was provided for retrograde pyelogram with placement of bilateral internal nephroureteral stents. The radiologist was not present for this procedure. Please see the operative report for intraprocedural details. Signed by: John Roy MD on 02/14/2020 11:10 AM
--- NOTE | 2020-02-14 11:30 | NUR ---
PATIENT DISCHARGED HOME. DISCHARGE INSTRUCTIONS, PRESCRIPTION, AND FOLLOW UP GIVEN TO PATIENT, HE VERBALIZED UNDERSTANDING. IV TO RIGHT AC REMOVED WITH TIP INTACT. ALL PERSONAL ITEMS TAKEN WITH PATIENT. LEFT UNIT PER WHEEL CHAIR TO FRONT LOBBY IN STABLE CONDITION.
--- NOTE | 2020-02-15 06:47 | Discharge Summary ---
ADMISSION DIAGNOSES: Urinary tract infection, hydronephrosis, present on admission. DISCHARGE DIAGNOSES: Urinary tract infection, hydronephrosis, present on admission, extended-spectrum beta-lactamases urinary tract infection with hydronephrosis, present on admission. MEDICAL HISTORY: Colon cancer. SURGICAL HISTORY: Status post colon resection. FAMILY HISTORY: Noncontributory. SOCIAL HISTORY: Noncontributory. HOSPITAL COURSE: A 59-year-old male admits with urinary frequency and UTI. He was taking Bactrim DS as an outpatient. The patient's urologist was consulted on admission. CT of the abdomen and pelvis showed moderate right hydronephrosis, right ureteral stent in expected position, [id number] left hydroureteronephrosis, thickened wall of the gallbladder. The patient was taken to the OR for cystoscopy with bilateral retrograde pyelogram, left ureteral stenosis dilatation, balloon dilatation with left double-J placement, right exchange of nonfunctioning double-J with removal of pus. Urine culture came back positive for ESBL, so the patient's Rocephin was changed to Merrem. At the time of discharge, Dr. Lowery decided that since the ESBL was only 10,000 and he removed the pus during the procedure that the patient should be fine to discharge home on Bactrim DS for a week. He will follow up with a Polanco in place on Monday. The patient understands discharge instructions and agrees to plan. Vital signs stable, the is patient afebrile. The patient was discharged with Macrobid b.i.d. Dictated by Jaimie Pierson, ELVI Evens Sunshine MD EVITA/MODL /[id number]
== END 2020-02-14 11:27 | disposition home or self-care (01) | DRG 660 ==
LOC: ER 06:33 → ERHOLD 12:14 → MED/SURG3 13:49 → OBSVTOIN 02-13 10:01
PROVIDERS: ADMIT Internal Medicine; ATTEND Internal Medicine
PROC: BT141ZZ Fluoroscopy of Kidneys, Ureters and Bladder using Low Osmolar Contrast (ICD-10-PCS; 2020-02-12)
PROC: 0TP98DZ Removal of Intraluminal Device from Ureter, Via Natural or Artificial Opening Endoscopic (ICD-10-PCS; 2020-02-12)
PROC: 0T788DZ Dilation of Bilateral Ureters with Intraluminal Device, Via Natural or Artificial Opening Endoscopic (ICD-10-PCS; principal; 2020-02-12 12:30)
DX: N13.6 Pyonephrosis (principal); Z16.12 Extended spectrum beta lactamase (ESBL) resistance; C18.9 Malignant neoplasm of colon, unspecified; N13.8 Other obstructive and reflux uropathy; N39.0 Urinary tract infection, site not specified; B96.20 Unspecified Escherichia coli [E. coli] as the cause of diseases classified elsewhere; N12 Tubulo-interstitial nephritis, not specified as acute or chronic; N17.9 Acute kidney failure, unspecified; Z11.59 Encounter for screening for other viral diseases; N40.1 Benign prostatic hyperplasia with lower urinary tract symptoms
CPT/HCPCS: 36415; 74177; 74420; 80048; 80053; 80061; 81001; 82550; 82553; 83735; 84100; 84443; 84484; 85025; 87086; 87186; 87635; 99251; 99284; C1758; C2625; G0378; J0696; J1100; J1885; J2001; J2250; J2270; J2405; J3010; J7030; Q9967

== ENCOUNTER 2020-10-16 06:48 | Inpatient (IN) | payer BC, MEDICARE ==
[~2020-10-16] VITALS: Ht 190.5 cm; Wt 95.3 kg
[~2020-10-16 06:48] MED LIST changes: +MACROBID 100 M100 MG PO; +METHENAMINE HIPP1 GM PO
[2020-10-16] MEDS ORDERED: ASPIRIN 81 MG CHEW TAB PO ONE (07:00)
[2020-10-16 07:26] LABS: BASOPHILS % 0.4 % (0.0-1.0); EOSINOPHILS # (AUTO) 0.1 (0.0-0.4); EOSINOPHILS % 1.2 % (0.0-6.0); HEMATOCRIT 26.4 % (38.2-49.6); HEMOGLOBIN 7.8 g/dL (14.0-18.0); LYMPHOCYTES % 18.2 % (18.0-39.1); MEAN CORPUSCULAR HEMOGLOBIN 24.6 pg (28-32); MEAN CORPUSCULAR HGB CONC 29.5 g/dL (31-35); MEAN CORPUSCULAR VOLUME 83.3 fL (81-99); MONOCYTES % 9.2 % (4.4-11.3); NEUTROPHILS # (AUTO) 7.5 (2.1-6.9); NEUTROPHILS % 68.7 % (38.7-80.0); PLATELET COUNT 384 x10e3/uL (140-360); RED BLOOD COUNT 3.17 x10e6/uL (4.3-5.7); RED CELL DISTRIBUTION WIDTH 18.6 % (11.7-14.4)
[2020-10-16] MEDS: MEROPENEM 1GM 100 ML IV SCH ×2 (07:43→19:36)
[2020-10-16] MEDS ORDERED: MEROPENEM 1GM 100 ML IV ONE (07:44)
[2020-10-16 07:50] LABS: CLARITY,URINE CLOUDY (CLEAR); COLOR,URINE YELLOW (YELLOW); LEUKOCYTE ESTERASE ,URINE 2+ (NEGATIVE); NITRITE,URINE NEGATIVE (NEGATIVE)
[2020-10-16 07:51] LABS: KETONES,URINE NEGATIVE (NEGATIVE); PROTEIN,URINE DIPSTICK >=300 (NEGATIVE); URINE UROBILINOGEN 0.2 mg/dL (0.2 - 1)
[2020-10-16 08:01] LABS: WBC,URINE (MAN) >50 /HPF (0-5)
[2020-10-16 08:02] LABS: BACTERIA,URINE MANY /HPF; EPITHELIAL CELLS,URINE FEW /LPF
[2020-10-16 08:14] LABS: ALANINE AMINOTRANSFERASE 19 IU/L (0-55); ALBUMIN 2.4 g/dL (3.5-5.0); ALBUMIN/GLOBULIN RATIO 0.4 (0.8-2.0); ALKALINE PHOSPHATASE 197 IU/L (40-150); BLOOD UREA NITROGEN 25 mg/dL (7-26); BUN/CREATININE RATIO 13 (6-25); CALCIUM 9.2 mg/dL (8.4-10.2); CARBON DIOXIDE 17 mmol/L (22-29); CHLORIDE 104 mmol/L (98-107); CREATINE KINASE 10 IU/L (30-200); CREATININE, SERUM 1.86 mg/dL (0.72-1.25); EST GLOMERULAR FILTRATION RATE 37 ML/MIN (60-); GLUCOSE 141 mg/dL (74-118); SODIUM 132 mmol/L (136-145)
[2020-10-16] MEDS ORDERED: SODIUM CHLORIDE 0.9% 50ML 50 ML ONE (08:36)
[2020-10-16] MEDS ORDERED: IOPAMIDOL 370 MG/ML 200 ML INFUS..BTL INJ ONE (08:36)
[2020-10-16] MEDS ORDERED: SODIUM CHLORIDE 0.9% 1000ML 1,000 ML ONE ×2 (08:57→14:08)
[2020-10-16] MEDS ORDERED: SODIUM CHLORIDE 0.9% IV SCH (09:00)
[2020-10-16] MEDS ORDERED: SODIUM CHLORIDE 0.9% 1000ML 1,000 ML IV STA ×2 (09:49)
[2020-10-16] MEDS ORDERED: ONDANSETRON HCL INJ 2MG/ML 2ML 2 MG/ML VIAL ONE (10:55)
[2020-10-16] MEDS ORDERED: MORPHINE SULFATE INJ 4 MG/ML INJ 1ML ONE (10:55)
[2020-10-16] MEDS: ONDANSETRON HCL INJ 2MG/ML 2ML 2 MG/ML VIAL IV PRN ×3 (10:57→19:10)
[2020-10-16] MEDS: MORPHINE SULFATE INJ 4 MG/ML INJ 1ML IV PRN ×3 (10:57→19:10)
[2020-10-16] MEDS: SODIUM CHLORIDE 0.9% 1000ML 1,000 ML IV SCH ×3 (15:01→23:29)
[2020-10-16 15:45] VITALS: BP 98/67
[2020-10-16 16:54] VITALS: BP 98/67
[2020-10-16 20:00] VITALS: BP 102/74
[2020-10-16] MEDS: HYDROCODONE/APAP 10MG-325MG TAB PO PRN (23:30)
[2020-10-17] VITALS: BP 102/58
[2020-10-17] MEDS: HYDROCODONE/APAP 10MG-325MG TAB PO PRN ×3 (03:33→11:53)
[2020-10-17 04:00] VITALS: BP 98/68
[2020-10-17 05:24] LABS: BASOPHILS % 0.4 % (0.0-1.0); EOSINOPHILS # (AUTO) 0.2 (0.0-0.4); EOSINOPHILS % 1.7 % (0.0-6.0); HEMATOCRIT 22.8 % (38.2-49.6); LYMPHOCYTES # (AUTO) 1.3 (1.0-3.2); LYMPHOCYTES % 12.7 % (18.0-39.1); MEAN CORPUSCULAR HEMOGLOBIN 25.3 pg (28-32); MEAN CORPUSCULAR HGB CONC 29.4 g/dL (31-35); MONOCYTES # (AUTO) 1.2 (0.2-0.8); MONOCYTES % 11.5 % (4.4-11.3); NEUTROPHILS # (AUTO) 7.4 (2.1-6.9); NEUTROPHILS % 72.1 % (38.7-80.0); PLATELET COUNT 329 x10e3/uL (140-360); RED BLOOD COUNT 2.65 x10e6/uL (4.3-5.7); RED CELL DISTRIBUTION WIDTH 18.7 % (11.7-14.4)
[2020-10-17 05:32] LABS: HEMOGLOBIN 6.7 g/dL (14.0-18.0)
[2020-10-17 05:53] LABS: CALCIUM 8.6 mg/dL (8.4-10.2); CREATININE, SERUM 1.79 mg/dL (0.72-1.25)
[2020-10-17 06:24] LABS: BASOPHILS # (AUTO) 0.1 (0.0-0.1); BASOPHILS % 0.4 % (0.0-1.0); EOSINOPHILS # (AUTO) 0.2 (0.0-0.4); EOSINOPHILS % 1.5 % (0.0-6.0); HEMATOCRIT 25.7 % (38.2-49.6); HEMOGLOBIN 7.5 g/dL (14.0-18.0); LYMPHOCYTES # (AUTO) 1.8 (1.0-3.2); LYMPHOCYTES % 15.8 % (18.0-39.1); MEAN CORPUSCULAR HEMOGLOBIN 25.2 pg (28-32); MEAN CORPUSCULAR HGB CONC 29.2 g/dL (31-35); MEAN CORPUSCULAR VOLUME 86.2 fL (81-99); MONOCYTES # (AUTO) 1.2 (0.2-0.8); MONOCYTES % 11.1 % (4.4-11.3); NEUTROPHILS # (AUTO) 7.8 (2.1-6.9); NEUTROPHILS % 69.1 % (38.7-80.0); PLATELET COUNT 334 x10e3/uL (140-360); RED BLOOD COUNT 2.98 x10e6/uL (4.3-5.7); RED CELL DISTRIBUTION WIDTH 18.6 % (11.7-14.4)
[2020-10-17] MEDS: SODIUM CHLORIDE 0.9% 1000ML 1,000 ML IV SCH (06:28)
[2020-10-17] MEDS: MEROPENEM 1GM 100 ML IV SCH (06:28)
[2020-10-17 07:33] VITALS: BP 140/79
[2020-10-17 07:42] VITALS: BP 100/74
[2020-10-17] MEDS: ONDANSETRON HCL INJ 2MG/ML 2ML 2 MG/ML VIAL IV PRN (10:44)
[2020-10-17 11:24] VITALS: BP 102/74
[2020-10-17 15:18] VITALS: BP 109/75
[2020-10-17] MEDS ORDERED: HEPARIN SOD (PORCINE) 1000 UNIT/ML 10ML MDV IV NR (15:30)
[2020-10-17] MEDS ORDERED: TAMSULOSIN HCL 0.4 MG CAP PO SCH (21:00)
== END 2020-10-17 16:40 | disposition home or self-care (01) | DRG 699 ==
LOC: ER 06:58 → ERHOLD 09:54 → MED/SURG2 15:27
PROVIDERS: ADMIT Internal Medicine; ATTEND Internal Medicine
DX: T83.592A Infection and inflammatory reaction due to indwelling ureteral stent, initial encounter (principal); Z16.24 Resistance to multiple antibiotics; Z16.12 Extended spectrum beta lactamase (ESBL) resistance; C19 Malignant neoplasm of rectosigmoid junction; N13.6 Pyonephrosis; B96.89 Other specified bacterial agents as the cause of diseases classified elsewhere; Z90.49 Acquired absence of other specified parts of digestive tract; B96.20 Unspecified Escherichia coli [E. coli] as the cause of diseases classified elsewhere; Z93.3 Colostomy status; N18.9 Chronic kidney disease, unspecified; F17.210 Nicotine dependence, cigarettes, uncomplicated; Z20.822 Contact with and (suspected) exposure to COVID-19
CPT/HCPCS: 36415; 74177; 80048; 80053; 81001; 82550; 82553; 83605; 84484; 85025; 87040; 87086; 87186; 99284; J2270; J2405; J7030; Q9967; U0002